=== PATIENT | female | born 1955 | race African-American/Black ===

== ENCOUNTER → 2020-08-10 11:41 | Outpatient (CLI) | payer MEDICARE, SELFPAY ==
--- NOTE | ~2020-08-10 | XR_ITS ---
EXAMINATION: XR chest 2V DATE: 08/10/2020 12:29 INDICATION: Cough. TECHNIQUE: Frontal and lateral views of the chest were obtained. COMPARISON: Chest 2 views 08/09/2014 FINDINGS: The chest demonstrates clear lungs without pneumonia, pleural effusion, or pneumothorax. Th e heart size is normal. Surgical clips in the right upper quadrant are likely from cholecystectomy. IMPRESSION: 1. No acute cardiopulmonary disease. Reviewed, dictated and finalized at location A. ACE ERECTOR
== END ==
PROVIDERS: Visit Provider Family Medicine
DX: R05 Cough (principal)
CPT/HCPCS: 71046

== ENCOUNTER 2020-10-10 07:53 | Outpatient (CLI) | payer MEDICARE, SELFPAY ==
--- NOTE | ~2020-10-10 | MM_ITS ---
EXAMINATION: MM screening juan BI w cleo HISTORY: Screening TECHNIQUE: Craniocaudal and mediolateral oblique 3-D tomosynthesis images were obtained and synthetic 2-D images were generated. CAD analysis was submitted and interpreted. COMPARISON: Comparison to multiple prior studies sequentially, with oldest reviewed study dated 06/19. BREAST PARENCHYMAL COMPOSITION: There are scattered areas of fibroglandular density. FINDINGS: There is no evidence of suspicious mass, calcification, or architectural distortion to sugg est malignancy in either breast. There has been no suspicious interval change. IMPRESSION: 1. No mammographic evidence of malignancy. 2. Recommend routine screening mammography in one year. BI-RADS Category 1: Negative Reviewed, dictated and finalized at location A. ESSOR OF PSYCHOLOGY
== END 2020-10-10 07:54 | disposition home or self-care (01) ==
LOC: ANHIMG 07:56
PROVIDERS: PCP Family Medicine; Visit Provider Student in an Organized Health Care Education/Training Program
DX: Z12.31 Encounter for screening mammogram for malignant neoplasm of breast (principal)
CPT/HCPCS: 77063; 77067

== ENCOUNTER 2021-02-27 14:17 | Emergency (ER) | payer MEDICARE, SELFPAY ==
[2021-02-27 14:44] VITALS: BP 126/70; PULSE 62; RESP 16; TEMP 36.8; O2SAT 100
--- NOTE | 2021-02-27 15:09 | ED.URI ---
HPI - URI/Sore Throat General Chief Complaint: Upper Respiratory Infection Stated Complaint: cough/congestion/chest pain Time Seen by Provider: 02/27/21 15:10 Source: patient Mode of arrival: ambulatory Limitations: no limitations History of Present Illness HPI Narrative: 65-year-old female presents to the [facility] with complaints of sinus drainage for the last 6 days. Has had intermittent cough with left ear discomfort. Has tried Mucinex, 4 doses and states is gotten a little bit better. No sick contacts. Denies fevers. No chest pain or shortness of breath. No abdominal pain, nausea, vomiting or diarrhea. Related Data Allergies Allergy/AdvReac Type Severity Reaction Status Date / Time No Known Allergies Allergy Verified 11/10/20 15:31 Review of Systems Review of Systems: All systems reviewed & are unremarkable except as noted in HPI and below Constitutional: Constitutional: Reports no additional constitutional complaints, Denies chills and Denies fever(s) Eyes: Eyes: Reports no additional eye complaints ENT: Reports as per HPI, Denies dizziness, Denies facial pain, Denies headache(s), Denies hoarseness, Denies lip swelling, Reports nasal congestion, Reports nasal discharge, Denies neck pain, Reports post nasal drip, Denies sinus pain, Denies sinus pressure, Denies sore throat and Denies throat swelling Comments: Left ear pain Cardiovascular: Cardiovascular: Reports no additional cardiovascular complaints Respiratory: Respiratory: Reports as per HPI, Denies chest congestion, Reports cough, Denies dyspnea and Denies wheezing Gastrointestinal: Gastrointestinal: Reports no additional gastrointestinal complaints, Denies abdominal pain, Denies nausea and Denies vomiting Musculoskeletal: Musculoskeletal: Reports no additional musculoskeletal complaints, Denies back pain, Denies myalgias, Denies arthralgias, Denies joint swelling and Denies muscle cramps Integumentary/Breasts: Skin/Breast: Reports system reviewed and no additional complaints, except as docu and Denies rash Neurologic: Reports system reviewed and no additional complaints, except as documented, Denies confusion, Denies vertigo, Denies dizziness, Denies syncope, Denies headache(s), Denies focal weakness, Denies numbness and Denies weakness Psychiatric: Psychiatric: Reports no additional psychiatric complaints Allergic/Immunologic: Allergic/Immunologic: Reports no additional allergic/immunologic complaints, Denies lip swelling, Denies throat swelling, Denies tongue swelling and Denies wheezing PMFSH Past Medical History Medical History (Updated 02/27/21 @ 15:18 by Pamela Levine) Acid reflux History of vaginal delivery x 2 Hypertension Renal disease Surgical History Surgical History History of cholecystectomy History of surgical removal of meniscus of knee History of total hysterectomy History of tubal ligation Family History Family History Father Family history of diabetes mellitus in first degree relative Diabetes mellitus, Onset Age: 82 Hypertension Mother Family history of lung cancer Hypertension Family history of malignant neoplasm, Onset Age: 70 Sibling Family history of lung cancer Family history of blood dyscrasia Social History Social History Smoking status: Never smoker Second hand tobacco smoke exposure: No Alcohol intake: never Substance use: never Substance use type: does not use Gender identity (if verbalized by the patient): Female Comments At the time of my signature, I reviewed and agree with the nursing past medical, surgical, social, and family history. There is no relevant family history pertinent to the patient complaint. Exam Const: General: healthy appearing, no acute distress and alert Nutritional Appearance: well nourished Or
== END 2021-02-27 15:24 | disposition home or self-care (01) ==
PROVIDERS: Emergency Provider Nurse Practitioner; PCP Family Medicine
DX: R09.82 Postnasal drip (principal); H60.502 Unspecified acute noninfective otitis externa, left ear; K21.9 Gastro-esophageal reflux disease without esophagitis; I10 Essential (primary) hypertension
CPT/HCPCS: 99213; G0463

== ENCOUNTER 2021-03-20 18:26 | Inpatient (IN) | payer MEDICARE, SELFPAY ==
--- NOTE | ~2021-03-20 | US_ITS ---
EXAMINATION: US renal BI DATE: 03/22/2021 10:59 INDICATION: Acute kidney injury TECHNIQUE: Multiple grayscale and Doppler ultrasound images of the kidneys were obtained. COMPARISON: 06/18/2014 FINDINGS: The right kidney measures 7.8 x 3.8 x 3.6 cm and contains a 2.2 cm cyst. The left kidney me asures 10.0 x 3.8 x 4.7 cm. The kidneys demonstrate normal parenchymal echogenicity. There is no hydr onephrosis. The bladder is incompletely distended but normal in appearance. IMPRESSION: 1. Chronic right renal atrophy without acute findings. Reviewed, dictated and finalized at location A.
--- NOTE | ~2021-03-20 | XR_ITS ---
EXAMINATION: XR finger 1st RT min 2V EXAM DATE: 03/22/2021 17:38 INDICATION: pain prox Rt 1st finger, decreased mobility; no recent inj. TECHNIQUE: Right 1st finger frontal, lateral and oblique projections obtained and reviewed. There is no prior study for comparison. FINDINGS: There is mild right 1st interphalangeal, metacarpophalangeal, mild to moderate carpometacar pal primary osteoarthritis. There are no bony erosions identified. There are no acute fractures or di slocations identified. There is no subcutaneous gas. The soft tissue is unremarkable. There are n o radiopaque foreign bodies. IMPRESSION: Osteoarthritis. Reviewed, dictated and finalized at location A. IMPRESSION: Osteoarthritis.
[2021-03-20 18:29] VITALS: BP 112/67; PULSE 80; RESP 18; TEMP 36.8; O2SAT 100
--- NOTE | 2021-03-20 18:50 | ED.GENADULT ---
HPI - General Adult General Chief complaint: Skin/Abscess/Foreign Body Stated complaint: skin issues Time Seen by Provider: 03/20/21 18:39 Source: patient, family and RN notes reviewed Mode of arrival: ambulatory Limitations: no limitations History of Present Illness HPI narrative: Patient is 65-year-old female who presents with abscess to the chin for the last several days was seen by primary care started on antibiotics but has had continued swelling and tenderness the lesion is now draining inside the mouth patient denies fever chills nausea vomiting immunocompromise presents in no distress notes moderate aching pain worse with touch and palpation Related Data Allergies Allergy/AdvReac Type Severity Reaction Status Date / Time No Known Allergies Allergy Verified 03/20/21 18:40 Review of Systems Review of Systems: All systems reviewed & are unremarkable except as noted in HPI and below PMFSH Past Medical History Medical History (Updated 03/20/21 @ 20:20 by Zoran Henderson PA-C) Acid reflux History of vaginal delivery x 2 Hypertension Renal disease Surgical History Surgical History History of cholecystectomy History of surgical removal of meniscus of knee History of total hysterectomy History of tubal ligation Family History Family History Father Family history of diabetes mellitus in first degree relative Diabetes mellitus, Onset Age: 82 Hypertension Mother Family history of lung cancer Hypertension Family history of malignant neoplasm, Onset Age: 70 Sibling Family history of lung cancer Family history of blood dyscrasia Social History Social History Smoking status: Never smoker Second hand tobacco smoke exposure: No Alcohol intake: never Substance use: never Substance use type: does not use Gender identity (if verbalized by the patient): Female Exam Narrative: Exam Narrative: GENERAL: Well-appearing, well-nourished, and in no acute distress. HEAD: Normocephalic, atraumatic. EYES: PERRLA and EOMI. ENT: Nares clear, no rhinorrhea or epistaxis. Mucous membranes moist. Swelling and tenderness to the lower inner lip where the abscess is tunneled through and draining NECK: Supple. No adenopathy or masses. CHEST: Clear to auscultation. No respiratory distress. No wheezes rales or rhonchi HEART: Regular rate and rhythm. No murmur heard. EXTREMITIES: Normal range of motion. No edema. SKIN: Warm, dry, no rash. Red tender swollen fluctuant lesion of the chin NEURO: No focal deficits. Alert and oriented x3. Cranial nerves II through XII grossly intact PSYCH: Normal mood and affect. Course Course Emergency Course: Patient had abscess that was I&D to also found to have acute kidney injury will be placed in hospital IV antibiotics fluids initiated admitted to the hospitalist service with plastic surgery consult Consultations Consultation #1: Discussed case with Dr. Malik and the hospitalist who is agreed to accept the patient will continue clindamycin with fluids Discussed case with Dr. Dodge the plastic surgeon who will consult on patient Date: 03/20/21 Vital Signs Vital signs: Vital Signs Temperature 98.2 F 03/20/21 18:29 Pulse Rate 80 03/20/21 18:29 Respiratory Rate 18 03/20/21 18:29 Blood Pressure 112/67 03/20/21 18:29 Pulse Oximetry 100 03/20/21 18:29 Temperature 98.2 F 03/20/21 18:29 Pulse Rate 73 03/20/21 19:52 Respiratory Rate 16 03/20/21 19:52 Blood Pressure 103/6 L 03/20/21 19:52 Pulse Oximetry 95 03/20/21 19:52 Procedures Abscess I/D face: Date of Incision: 03/20/21 Time of Incision: 20:17 Local Anesthetic: lidocaine 1% Technique: incised with #11 blade Amount of fluid expressed (mL): 10 Irrigation: Yes
[2021-03-20] MEDS: HYDROcodone/acetaminophen (*CRX) 5-325 MG TABLET 1 TAB PO (18:59)
[2021-03-20 19:01] LABS: Basophils Percent Auto 0.1 % (0.2-1.2); Hematocrit 37.9 % (37.0-47.0); Hemoglobin 12.2 g/dL (12.0-15.0); Immature Granulocyte Absolute 0.09 K/mm3 (0.00-0.031); Immature Granulocyte Percent A 0.6 % (0-0.5); Lymphocytes Percent Auto 14.1 % (18.3-44.2); Mean Corpuscular HGB Conc 32.2 g/dl (32-36); Mean Corpuscular Hemoglobin 28.7 pg (26-34); Mean Corpuscular Volume 89.2 fl (80-100); Mean Platelet Volume 10.3 fl (7.4-10.4); Monocytes Absolute Auto 1.7 K/mm3 (0.1-0.6); Monocytes Percent Auto 10.9 % (2.6-8.5); Neutrophils Absolute Auto 11.6 K/mm3 (1.3-6.7); Neutrophils Percent Auto 74.3 % (45.5-73.1); Platelet Count Result 303 k/mm3 (150-375); Red Blood Count 4.25 M/mm3 (4.2-5.4); Red Cell Distribution Width 13.8 % (11.5-14.5); White Blood Count 15.6 K/mm3 (4.5-10.0)
[2021-03-20 19:10] LABS: Anion Gap 13 mmol/L (8-16); Blood Urea Nitrogen 45 mg/dL (7-17); Calcium 9.1 mg/dL (8.4-10.2); Carbon Dioxide 22 mmol/L (22-30); Chloride 101 mmol/L (98-107); Estimated CRCL calculation 10 ml/min; Estimated Glomerular Filt Rate 12; Glucose 89 mg/dL (65-105); Potassium 5.4 mmol/L (3.4-5.0); Sodium 136 mmol/L (137-145)
[2021-03-20] MEDS: LORazepam INJ (*CRX) 2 MG/ML VIAL 1 MG IV PUSH (19:10)
[2021-03-20] MEDS: CLINDAMYCIN 900 MG/D5W 50 ML 900 MG/50 ML PIGGYBACK 50 MG IVPB (19:10)
[2021-03-20] MEDS: SODIUM CHLORIDE 0.9% IV 500 ML 999 ML IV CONT (19:50)
[2021-03-20 19:52] VITALS: BP 103/6; PULSE 73; RESP 16; O2SAT 95
--- NOTE | 2021-03-20 20:46 | PM.IMHP ---
H&P: HPI History of Present Illness Date/Time: 03/20/21 20:46 Chief Complaint: rastafari on her chin not getting better Narrative: 65-year-old female with a past medical history hypertension and chronic kidney disease who presented to the ER due to an abscess on her chin. She had a pimple to her chin that she popped on the . She thought that after she popped the pimple that her symptoms would get better instead she developed increasing swelling and erythema and warmth. She subsequently went to her primary care provider on 03/17/2021 and was prescribed Bactrim. Despite taking the antibiotic therapy as directed she continued to develop swelling in her chin to the point that her lip became swollen. She also noticed a small area of swelling inside her mouth just anterior to her teeth. She was having difficulty speaking due to the amount of swelling in her mouth and lip. She reported that the area generally her but the pain was worse with palpation. she did take some Tylenol for her symptoms with only minimal relief in her discomfort. She knows not to take any ibuprofen or other NSAIDs due to her chronic kidney disease. She denies any chills but did feel little bit feverish. She did not check her temperature. she noticed a new pustule on her chin and tried to have her sister pop the pustule but the pain was too bad to a lower sister to touch the area. She subsequently came into the ER. In the ER the patient's chin was I indeed both externally and from the mucosal membrane. The area was packed with iodoform gauze. Patient reports that the pain improved somewhat after I&D. She denies ever having prior abscesses or skin infections. She denies any trauma. She has good dentition with no evidence of dental abscess. She does have a history of chronic kidney disease. She reports that her last creatinine as outpatient approximately 3 and half months ago was around 2. Her heel edge inker machine is Dr. Lima. She is post fall with Dr. Lima in the next 4 weeks or so. She denies any changes in urinary frequency or urgency. She has not noticed any dark urine, decreased urine output or hematuria. She reports that she has been drinking plenty of fluids. Despite this the patient's creatinine has risen to 4.5. She does admit to drinking a lot of soda. Review of Systems Review of Systems: Narrative: 12 systems were reviewed with pertinent positives and negatives per HPI. Except as documented in the HPI, all other systems were reviewed and are negative. [facility] Past Medical History Medical History (Updated 03/21/21 @ 01:33 by Sultana Irvin DO) Acid reflux Allergic rhinitis Chronic kidney disease, stage III (moderate) History of vaginal delivery x 2 Hypertension IFG (impaired fasting glucose) Lupus Surgical History Surgical History History of cholecystectomy History of surgical removal of meniscus of knee History of total hysterectomy History of tubal ligation Family History Family History Father Family history of diabetes mellitus in first degree relative Diabetes mellitus, Onset Age: 82 Hypertension Mother Family history of lung cancer Hypertension Family history of malignant neoplasm, Onset Age: 70 Sibling Family history of lung cancer Family history of blood dyscrasia Social History Social History (Updated 03/21/21 @ 01:29 by Sultana Irvin DO) Social History: she lives in [place] with her of 40 years. They have 1 daughter and 1 son. She is employed as a [employer]. She is a lifelong nonsmoker. She very rarely drinks a small amount of alcohol. She denies any illicit substance use. Primary care physician: Dr. Pola Navarro Code status: Full code Surrogate decision maker: Smoking status: Never smoker Second hand tobacco smoke exposure: No Alcohol intake
[2021-03-20 21:20] LABS: CRP 18.1 mg/dL (<1.0)
[2021-03-20 21:25] VITALS: PULSE 83; RESP 12; TEMP 36.6; O2SAT 99
--- NOTE | 2021-03-20 21:45 | ADMGEN ---
This patient, Juanis Garcia, was admitted to [facility] Surg Room 302-01. Patient/family oriented to hospital policies and general routines including ID bracelet, bed and alarms, visiting hours, pain management, procedures, bathroom and other care routines, personal items, smoking policy, room service/diet, and visiting hours. Information on how to activate the Rapid Response Team has been discussed. Patient/Family are encouraged to report perceived risks to care and to ask questions if they do not understand what they are told or what they should do.
[2021-03-20 22:00] VITALS: BP 109/76; PULSE 68; RESP 18; TEMP 36.6; O2SAT 98
[2021-03-20] MEDS: LACTATED RINGERS 1,000 ML 125 ML IV CONT (22:33)
[2021-03-20] MEDS: FAMOTIDINE 20 MG/2 ML VIAL IV PUSH (22:33)
[2021-03-21] MEDS: CLINDAMYCIN 900 MG/D5W 50 ML 900 MG/50 ML PIGGYBACK 50 MG IVPB ×3 (05:36→22:47)
[2021-03-21] MEDS: LACTATED RINGERS 1,000 ML 125 ML IV CONT ×2 (05:37→18:27)
[2021-03-21 05:55] VITALS: BP 100/52; PULSE 65; RESP 18; TEMP 37.2; O2SAT 97
[2021-03-21 06:09] LABS: Basophils Percent Auto 0.1 % (0.2-1.2); Hematocrit 32.6 % (37.0-47.0); Hemoglobin 10.8 g/dL (12.0-15.0); Immature Granulocyte Absolute 0.05 K/mm3 (0.00-0.031); Immature Granulocyte Percent A 0.5 % (0-0.5); Lymphocytes Percent Auto 16.1 % (18.3-44.2); Mean Corpuscular HGB Conc 33.1 g/dl (32-36); Mean Corpuscular Hemoglobin 29.2 pg (26-34); Mean Corpuscular Volume 88.1 fl (80-100); Mean Platelet Volume 10.3 fl (7.4-10.4); Monocytes Absolute Auto 1.2 K/mm3 (0.1-0.6); Monocytes Percent Auto 11.4 % (2.6-8.5); Neutrophils Absolute Auto 7.6 K/mm3 (1.3-6.7); Neutrophils Percent Auto 71.9 % (45.5-73.1); Platelet Count Result 271 k/mm3 (150-375); Red Cell Distribution Width 13.6 % (11.5-14.5); White Blood Count 10.6 K/mm3 (4.5-10.0)
[2021-03-21 06:21] LABS: Anion Gap 10 mmol/L (8-16); Blood Urea Nitrogen 41 mg/dL (7-17); Calcium 8.5 mg/dL (8.4-10.2); Carbon Dioxide 23 mmol/L (22-30); Chloride 104 mmol/L (98-107); Estimated CRCL calculation 11 ml/min; Estimated Glomerular Filt Rate 14; Glucose 91 mg/dL (65-105); Potassium 4.9 mmol/L (3.4-5.0); Sodium 137 mmol/L (137-145)
[2021-03-21] MEDS: ENOXAPARIN 30 MG/0.3 ML SYRINGE SUB-Q (08:23)
[2021-03-21] MEDS: FLUTICASONE PROPIONATE 0.05% NA SPR 16 GM BTL (*BKC) 2 SPRAY NASAL (08:23)
[2021-03-21] MEDS: amLODIPine BESYLATE 5 MG TABLET PO (08:23)
[2021-03-21] MEDS: FAMOTIDINE 20 MG/2 ML VIAL IV PUSH ×2 (08:23→21:07)
[2021-03-21] MEDS: VENLAFAXINE HCL XR 75 MG CAP.ER.24H 150 MG PO (08:23)
[2021-03-21 08:24] VITALS: PULSE 65
[2021-03-21] MEDS: NEBIVOLOL HCL 5 MG TABLET PO (08:24)
--- NOTE | 2021-03-21 12:46 | PM.IMPN ---
Progress Note: A&P Assessment and Plan (1) Abscess of face: Code(s): L02.01 - Cutaneous abscess of face Status: Acute Assessment and Plan: SUPPORTIVE CARE DRESSING CHANGES WET-TO-DRY DAILY Patient's abscess was I&D by ER staff. Wound cultures pending. Dr. Dodge from plastic surgery has been consulted. Continue empiric antibiotic therapy with clindamycin. (2) Acute kidney injury superimposed on chronic kidney disease: Code(s): N17.9 - Acute kidney failure, unspecified; N18.9 - Chronic kidney disease, unspecified Status: Acute Assessment and Plan: Likely in part due to recent Bactrim administration. Will continue IV fluid hydration. Low-potassium diet has been ordered as the patient has mild hyperkalemia. Will hold patient's angiotensin receptor ady And hydrochlorothiazide. monitor urine output closely and repeat BMP in a.m.. Dr. Lima has been consulted. (3) Essential hypertension: Code(s): I10 - Essential (primary) hypertension Status: Acute Assessment and Plan: The patient's blood pressure is stable. Will hold the patient's Arb and hydrochlorothiazide at least for the short term given her acute renal failure. Continue home Bystolic and Norvasc. Additional Plan Patient has been admitted as observation status. Subjective Date/time seen: 03/21/21 12:46 I FEEL OKAY Exam Narrative: Exam Narrative: PHYSICAL EXAM: WEIGHT 70 kg BMI 26.5 General: No acute distress, well-developed well-nourished HEENT: mucous membranes are moist, no oral pharyngeal erythema, good dentition, pupils are equal and reactive, marked Swelling of the chin with associated swelling of the lower lip more to the left side than the right, small ulceration /opening the mucosal membrane at the base the gumline, associated erythema and warmth to touch Respiratory: clear to auscultation bilaterally, no increased work of breathing Cardiovascular: regular rate, regular rhythm, no murmurs Gastrointestinal: soft, nontender, positive bowel sounds Skin: erythema and warmth to the chin as discussed above Musculoskeletal: no clubbing, cyanosis or edema Neurological: alert and oriented, speech is clear, no facial asymmetry, patient intermittently falling asleep but she receive some sedating medications in the ER, no localizing neurologic deficits noted on limited exam Psychiatric: appropriate mood and affect, pleasant and cooperative : defered Hematologic/lymphatic: submandibular lymphadenopathy left greater than right, no petechiae, no bruising Objective Data Vital Signs Vital Signs: Vital Signs - 24 hr 03/20/21 18:29 03/20/21 19:52 03/20/21 21:25 Temperature 98.2 F 97.9 F Pulse Rate 80 73 83 Respiratory Rate 18 16 12 Blood Pressure 112/67 103/6 L Pulse Oximetry 100 95 99 03/20/21 22:00 03/21/21 05:55 03/21/21 08:24 Temperature 97.9 F 99.0 F Pulse Rate 68 65 65 Respiratory Rate 18 18 Blood Pressure 109/76 100/52 L Pulse Oximetry 98 97 Intake/Output Intake/Output: Intake & Output 03/18/21 03/19/21 03/20/21 03/21/21 23:59 23:59 23:59 23:59 Intake Total 650 2040 Output Total 900 Balance 650 1140 Meds/Results Medications: Active Medications Generic Name Dose Route Start Last Admin Trade Name Freq PRN Reason Stop Dose Admin Acetaminophen 500 mg 03/20/21 20:54 Acetaminophen 500 Mg Tablet PO Q6H PRN Mild Pain (1-3) or Fever Hydrocodone Bitart/Acetaminophen 1 tab 03/20/21 20:20 Hydrocodone/Acetaminophen (*Crx) 5-325 Mg Tablet PO Q4H PRN Pain Rated 4-6 Amlodipine Besylate 5 mg 03/21/21 09:00 03/21/21 08:23 Amlodipine Besylate 5 Mg Tablet PO 5 mg QAM ZOFIA Administration Enoxaparin Sodium 30 mg 03/21/21 09:00 03/21/21 08:23 Enoxaparin 30 Mg/0.3 Ml Syringe SUB-Q 30 mg DAILY ZOFIA Administration Famotidine 20 mg 03/20/21 21:00 03/21/21 08:23 F
--- NOTE | 2021-03-21 12:55 | PM.CNNEP ---
Assessment and Plan Assessment and plan (1) Acute kidney injury: Code(s): N17.9 - Acute kidney failure, unspecified Status: Acute Assessment and Plan: presumably due to acute infection (#3) however, relative hypotension along with ARB + HCTZ likely contributed outpatient use of bactrim likely also responsible as well hold BP meds for now and allow BP to rise a bit for completeness, will check urine lytes and eosinophils as well as renal ultrasound follow repeat labs and UOP (2) CKD (chronic kidney disease) stage 4, GFR 15-29 ml/min: Code(s): N18.4 - Chronic kidney disease, stage 4 (severe) Status: Chronic Assessment and Plan: baseline creatinine runs ~ 1.7 - 2.1mg/dl due to hypertension based on outpatient evaluation (3) Abscess of face: Code(s): L02.01 - Cutaneous abscess of face Status: Acute Assessment and Plan: s/p I & D in the ER on antibiotics follow cultures Plastic Surgery consulted (4) Hypertension: Code(s): I10 - Essential (primary) hypertension Status: Acute Assessment and Plan: on the lower side of normal for her follow trend of hemodynamics Will continue to follow. History of Present Illness Reason for Consult Consult date: 03/21/21 Reason for consult: acute renal failure (on chronic kidney disease) Chief Complaint Chief complaint: Facial abscess, acute kidney injury History of Present Illness Narrative: The patient is a 65-year-old female with a past medical history as outlined below who presented to [facility] ER due to an abscess on her chin. Initially, it started out as a pimple to her chin that she ruptured on its own about a week ago. She assumed her symptoms would improve after that occurred. Unfortunately, she developed increasing swelling and erythema along increased warmth to touch. She subsequently went to her primary care provider a few days later and stared on oral Bacrim. However, despite taking the anibiotic, her chin continued to swell to the point that her lower lip became swollen. This worsened to the point that she noted an area of swelling inside her mouth and her speech became difficult. She presented to the ER for further evaluation given these ongoing symptoms. Workup and evaluation in the emergency room demonstrated the patient to be hemodynamically stable although her blood pressure was little bit lower than what it normally runs in general. Routine blood test demonstrated a mildly elevated white blood cell count but her chemistry showed a marked decline in her kidney function with a significantly elevated BUN and creatinine above her baseline. The ER physician performed a bedside incision and drainage which did seem to make the patient feel better after this procedure was done. She was started on broad-spectrum IV antibiotic therapy after appropriate cultures were obtained and she was subsequently admitted to the hospital given the issue of her chin abscess as well as her acute renal failure/ acute kidney injury. Plastic surgery was also consult with regard to the chin abscess. Renal consultation was requested due to her acute kidney injury/acute renal failure on top of her baseline kidney disease. The patient is quite familiar to me as I have taking care of her for last few years with regard to her chronic kidney disease management. Her baseline creatinine normally runs around 1.7-2.1 mg/dL in the last few years thought to be secondary to hypertension given her negative outpatient testing /evaluation. She reports no decrease in urine output as states that she does drink plenty of water but does admit that with the chin abscess her oral intake has been somewhat reduced in general. Currently, at the time my visit, she appears to be in no acute distress. Review of Systems Review of Systems: Narrative: As per HPI. [facility] Past Medical History Medical History (Update
[2021-03-21 14:00] VITALS: BP 103/45; PULSE 70; RESP 16; TEMP 36.6; O2SAT 100
--- NOTE | 2021-03-21 14:47 | WPDCN ---
Assessment and Plan Assessment and plan (1) Abscess of face: Code(s): L02.01 - Cutaneous abscess of face Status: Acute Assessment and Plan: Patient's abscess was I and eat by ER staff. Wound cultures pending. Dr. Dodge from plastic surgery has been consulted. Continue empiric antibiotic therapy with clindamycin. (2) Acute kidney injury superimposed on chronic kidney disease: Code(s): N17.9 - Acute kidney failure, unspecified; N18.9 - Chronic kidney disease, unspecified Status: Acute Assessment and Plan: Likely in part due to recent Bactrim administration. Will continue IV fluid hydration. Low-potassium diet has been ordered as the patient has mild hyperkalemia. Will hold patient's angiotensin receptor ady And hydrochlorothiazide. monitor urine output closely and repeat BMP in a.m.. Dr. Lima has been consulted. (3) Essential hypertension: Code(s): I10 - Essential (primary) hypertension Status: Acute Assessment and Plan: The patient's blood pressure is stable. Will hold the patient's Arb and hydrochlorothiazide at least for the short term given her acute renal failure. Continue home Bystolic and Norvasc. Additional Plan I will see patient tomorrow in the morning and likely pull the wick She will probably be in good enough condition to be discharged home if Nephrology agrees. Patient has been admitted as observation status. HPI Data of Consult Date/Time: 03/21/21 14:47 Requesting Physician: Sultana Irvin DO Primary Care Provider: Pola Navarro MD Consult Narrative Narrative: Juanis Garcia is a 65 year old female with 4-5 day history of increasing swelling the the left chin and lower lip. She has been seen by her primary and was started on Bactrim Swelling with pain continued and no drainage occurred despite application of hot packs. Yesterday she was I&D'd via cutaneous and intraoral routes in the ER and a wick was placed. She has been started on IV Clindamycin. WBC has dropped from 15.6 to 10.6. No drainage was expressible today. Wick remains. Culture is pending. Pt says her teeth are in good condition. She has had an aberrant hair on her chin at this site. No x-rays have been done and probably do not need to be. [facility] Past Medical History Medical History (Updated 03/21/21 @ 06:12 by Sultana Irvin DO) Acid reflux Allergic rhinitis Chronic kidney disease, stage III (moderate) COVID-19 vaccine series completed (~07/2020) Gout History of vaginal delivery x 2 Hypertension IFG (impaired fasting glucose) Lupus Surgical History Surgical History (Updated 03/21/21 @ 06:12 by Sultana Irvin DO) History of bunionectomy of both great toes History of cholecystectomy History of repair of right rotator cuff History of surgical removal of meniscus of knee History of total hysterectomy (~1995) due to fibroids and dysfunctional uterine bleeding History of tubal ligation Family History Family History (Updated 03/21/21 @ 06:14 by Sultana Irvin DO) Father , at age 82 Diabetes mellitus, Onset Age: 82 Hypertension Dementia Mother , at age 70 Hypertension Lung cancer Sibling Family history of blood dyscrasia Lung cancer her youngest sister of lung cancer. Social History Social History (Updated 03/21/21 @ 01:29 by Sultana Irvin DO) Social History: she lives in [place] with her of 40 years. They have 1 daughter and 1 son. 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 She is a lifelong nonsmoker. She very rarely drinks a small amount of alcohol. She denies any illicit substance use. Primary care physician: Dr. Pola Navarro Code status: Full code Surrogate decision maker: Smoking status: Never smoker Second hand tobacco smoke exposure: No Alcohol intake: former Substance use: never
[2021-03-21] MEDS: HYDROcodone/acetaminophen (*CRX) 5-325 MG TABLET 1 TAB PO (21:47)
[2021-03-21 23:17] LABS: Add Urine Microscopic? NO; Appearance Urine Clear (Clear); Bilirubin Urine Negative (Negative); Blood Urine Negative (Negative); Color Urine Straw (Yellow); Glucose Urine UA Negative (Negative); Ketones Urine Negative (Negative); Leukocyte Esterase Ur Negative LEU/UL (Negative); Nitrate Urine Negative (Negative); Protein Urine Negative (Negative); Specific Grav Ur 1.008 (1.001-1.035); Urobilinogen Urine Negative mg/dL (<2.0)
[2021-03-21 23:32] LABS: Total Protein Urine Random 15 mg/dL; Ur Ttl Prot Creatinine Ratio 0.26 mg/mg (0-0.20)
[2021-03-21 23:41] LABS: Eosinophil Urine None Seen % (None Seen)
[2021-03-21 23:46] LABS: Sodium Urine Random 64 meq/L
[2021-03-22] MEDS: LACTATED RINGERS 1,000 ML 125 ML IV CONT ×2 (03:38→17:13)
[2021-03-22] MEDS: CLINDAMYCIN 900 MG/D5W 50 ML 900 MG/50 ML PIGGYBACK 50 MG IVPB ×3 (05:38→21:29)
[2021-03-22 06:00] VITALS: BP 101/49; PULSE 76; RESP 20; TEMP 36.4; O2SAT 92
[2021-03-22 06:24] LABS: Albumin Level 3.7 g/dL (3.5-5.1); Anion Gap 8 mmol/L (8-16); Blood Urea Nitrogen 31 mg/dL (7-17); Calcium 8.8 mg/dL (8.4-10.2); Carbon Dioxide 24 mmol/L (22-30); Chloride 106 mmol/L (98-107); Estimated CRCL calculation 15 ml/min; Estimated Glomerular Filt Rate 20; Glucose 84 mg/dL (65-105); Phosphorus 3.8 mg/dL (2.5-4.5); Potassium 4.7 mmol/L (3.4-5.0); Sodium 138 mmol/L (137-145)
[2021-03-22] MEDS: FLUTICASONE PROPIONATE 0.05% NA SPR 16 GM BTL (*BKC) 2 SPRAY NASAL (08:38)
[2021-03-22 08:39] VITALS: PULSE 68
[2021-03-22] MEDS: NEBIVOLOL HCL 5 MG TABLET PO (08:39)
[2021-03-22] MEDS: FAMOTIDINE 20 MG/2 ML VIAL IV PUSH ×2 (08:39→21:30)
[2021-03-22] MEDS: ENOXAPARIN 30 MG/0.3 ML SYRINGE SUB-Q (08:39)
[2021-03-22] MEDS: VENLAFAXINE HCL XR 75 MG CAP.ER.24H 150 MG PO (08:39)
[2021-03-22] MEDS: ACETAMINOPHEN 500 MG TABLET PO (08:44)
--- NOTE | 2021-03-22 10:47 | PM.IMPN ---
Progress Note: A&P Assessment and Plan (1) Acute kidney injury: Code(s): N17.9 - Acute kidney failure, unspecified Status: Acute Assessment and Plan: continue to monitor follow Nephrology recommendations presumably due to acute infection (#3) however, relative hypotension along with ARB + HCTZ likely contributed outpatient use of bactrim likely also responsible as well hold BP meds for now and allow BP to rise a bit for completeness, will check urine lytes and eosinophils as well as renal ultrasound follow repeat labs (2) CKD (chronic kidney disease) stage 4, GFR 15-29 ml/min: Code(s): N18.4 - Chronic kidney disease, stage 4 (severe) Status: Chronic Assessment and Plan: baseline creatinine runs ~ 1.7 - 2.1mg/dl due to hypertension based on outpatient evaluation (3) Abscess of face: Code(s): L02.01 - Cutaneous abscess of face Status: Acute Assessment and Plan: s/p I & D in the ER on antibiotics follow cultures Plastic Surgery consulted (4) Hypertension: Code(s): I10 - Essential (primary) hypertension Status: Acute Assessment and Plan: on the lower side of normal for her follow trend of hemodynamics Will continue to follow. Subjective Date/time seen: 03/22/21 10:47 Exam Const: General: comfortable, no acute distress, well developed, alert and awake Nutritional Appearance: average body habitus Orientation/consciousness: patient oriented x3 HENMT: Head: normal to inspection, normocephalic and atraumatic Ears: hearing grossly normal bilaterally General nose exam: Normal external nose present Face and sinus: other ( left chin abscess status post incision and drainage packing in) Mouth: Yes Normal oral and palatal mucosa present Eyes: General: appearance normal, both eyes and all related structures Pupils: Equal, round and reactive pupils present EOM: EOMs intact bilaterally Neck: Neck: full ROM, no lymphadenopathy and no JVD Thyroid: thyroid normal Lymphatic: no lymphadenopathy noted Resp: Effort & Inspection: normal respiratory effort and able to speak in complete sentences Auscultation: clear to auscultation bilaterally Cardio: Jugular venous distension: no JVD Rate: regular rate Rhythm: regular rhythm Heart sounds: S1 normal heart sound present and S2 normal heart sound present GI: GI Palp: Yes Soft to palpation and Yes No hepatosplenomegaly present : General: Yes deferred Skin: Rashes: no rashes Wounds: no wounds Neuro: General: patient oriented x3 and CN's II-XI intact bilaterally Cranial nerves: Yes CN's II-XII intact bilaterally and Yes Equal, round and reactive pupils present Cognition (Neuro): normal cognition Speech: normal speech Gait exam (Neuro): Normal gait present Motor exam (neuro): 5/5 motor strength present throughout Extrem: General: normal to inspection, full ROM, no joint enlargement and no pedal edema Objective Data Vital Signs Vital Signs: Vital Signs - 24 hr 03/21/21 14:00 03/22/21 06:00 03/22/21 08:39 Temperature 97.9 F 97.6 F Pulse Rate 70 76 68 Respiratory Rate 16 20 Blood Pressure 103/45 L 101/49 L Pulse Oximetry 100 92 Intake/Output Intake/Output: Intake & Output 03/19/21 03/20/21 03/21/21 03/22/21 23:59 23:59 23:59 23:59 Intake Total 650 4100 1490 Output Total 1600 900 Balance 650 2500 590 Meds/Results Medications: Active Medications Generic Name Dose Route Start Last Admin Trade Name Freq PRN Reason Stop Dose Admin Acetaminophen 500 mg 03/20/21 20:54 03/22/21 08:44 Acetaminophen 500 Mg Tablet PO 500 mg Q6H PRN Administration Mild Pain (1-3) or Fever Hydrocodone Bitart/Acetaminophen 1 tab 03/20/21 20:20 03/21/21 21:47 Hydrocodone/Acetaminophen (*Crx) 5-325 Mg Tablet PO 1 tab Q4H PRN Administration Pain Rated 4-6 Amlodipine Besylate 5 mg 03/21/21 09:00 03/21/21 08:23 Amlodipine Besylate 5 M
--- NOTE | 2021-03-22 11:16 | PM.PNNEP ---
Progress Note: A&P Assessment and Plan (1) Acute kidney injury: Code(s): N17.9 - Acute kidney failure, unspecified Status: Acute Assessment and Plan: presumably due to acute infection , diuretics, Bactrim. She is getting antibiotics now. Blood pressure looks better. She is off the Bactrim. Urine electrolytes non pre renal. Renal ultrasound is pending follow repeat labs and UOP (2) CKD (chronic kidney disease) stage 4, GFR 15-29 ml/min: Code(s): N18.4 - Chronic kidney disease, stage 4 (severe) Status: Chronic Assessment and Plan: baseline creatinine runs ~ 1.7 - 2.1mg/dl creatinine fell from 4-2.5. (3) Abscess of face: Code(s): L02.01 - Cutaneous abscess of face Status: Acute Assessment and Plan: s/p I & D in the ER on antibiotics follow cultures Plastic Surgery consulted (4) Hypertension: Code(s): I10 - Essential (primary) hypertension Status: Acute Assessment and Plan: on the lower side of normal for her follow trend of hemodynamics Subjective Date/time seen: 03/22/21 11:16 Interval history: Minnie is feeling better today. No chest pain or shortness of breath. Making plenty of urine. Eating okay. Review of Systems Cardiovascular: Cardiovascular: Reports no additional cardiovascular complaints Respiratory: Respiratory: Reports no additional respiratory complaints Gastrointestinal: Gastrointestinal: Reports no additional gastrointestinal complaints Genitourinary: Genitourinary: Reports no additional female genitourinary complaints Exam Narrative: Exam Narrative: WDWN in NAD skin no rash head ncat lungs clear cor reg no rub abd BS+ nontender and soft ext no edema. Objective Data Vital Signs Vital Signs: Vital Signs - 24 hr 03/21/21 14:00 03/22/21 06:00 03/22/21 08:39 Temperature 36.6 C 36.4 C Pulse Rate 70 76 68 Respiratory Rate 16 20 Blood Pressure 103/45 L 101/49 L Pulse Oximetry 100 92 Intake/Output Intake/Output: Intake & Output 03/19/21 03/20/21 03/21/21 03/22/21 23:59 23:59 23:59 23:59 Intake Total 650 4100 1490 Output Total 1600 900 Balance 650 2500 590 Meds/Results Medications: Active Medications Generic Name Dose Route Start Last Admin Trade Name Freq PRN Reason Stop Dose Admin Acetaminophen 500 mg 03/20/21 20:54 03/22/21 08:44 Acetaminophen 500 Mg Tablet PO 500 mg Q6H PRN Administration Mild Pain (1-3) or Fever Hydrocodone Bitart/Acetaminophen 1 tab 03/20/21 20:20 03/21/21 21:47 Hydrocodone/Acetaminophen (*Crx) 5-325 Mg Tablet PO 1 tab Q4H PRN Administration Pain Rated 4-6 Amlodipine Besylate 5 mg 03/21/21 09:00 03/21/21 08:23 Amlodipine Besylate 5 Mg Tablet PO 5 mg QAM ZOFIA Administration Enoxaparin Sodium 30 mg 03/21/21 09:00 03/22/21 08:39 Enoxaparin 30 Mg/0.3 Ml Syringe SUB-Q 30 mg DAILY ZOFIA Administration Famotidine 20 mg 03/20/21 21:00 03/22/21 08:39 Famotidine 20 Mg/2 Ml Vial IV PUSH 20 mg Q12HR ZOFIA Administration Fluticasone Propionate 2 spray 03/21/21 09:00 03/22/21 08:38 Fluticasone Propionate 0.05% Na Spr 16 Gm Btl (*Bkc) NASAL 2 spray DAILY ZOFIA Administration Lactated Ringer's 1,000 mls @ 125 mls/hr 03/20/21 20:20 03/22/21 03:38 Lr - Lactated Ringers Iv IV CONT 125 mls/hr .Q8H ZOFIA Administration Clindamycin Phosphate 900 mg in 50 mls @ 50 mls/hr 03/21/21 06:00 03/22/21 07:45 Cleocin 900 Mg/D5w 50 Ml IVPB Infused Q8H ZOFIA Infusion Nebivolol 5 mg 03/21/21 09:00 03/22/21 08:39 Nebivolol Hcl 5 Mg Tablet PO 5 mg DAILY ZOFIA Administration Venlafaxine HCl 150 mg 03/21/21 08:00 03/22/21 08:39 Venlafaxine Hcl Xr 75 Mg Cap.Er.24h PO 150 mg DAILY@0800 ZOFIA Administration Labs Labs: Laboratory Results - last 24 hr 03/21/21 03/21/21 03/21/21 21:58 21:58 21:58 Sodium Potassium Chloride
[2021-03-22 14:00] VITALS: BP 105/43; PULSE 58; RESP 18; TEMP 36.8; O2SAT 98
[2021-03-22 22:00] VITALS: BP 124/75; PULSE 56; RESP 18; TEMP 36.4; O2SAT 100
[2021-03-23] MEDS: LACTATED RINGERS 1,000 ML 125 ML IV CONT ×3 (02:36→18:16)
[2021-03-23] MEDS: CLINDAMYCIN 900 MG/D5W 50 ML 900 MG/50 ML PIGGYBACK 50 MG IVPB (05:29)
[2021-03-23 05:46] LABS: Albumin Level 3.6 g/dL (3.5-5.1); Anion Gap 5 mmol/L (8-16); Blood Urea Nitrogen 25 mg/dL (7-17); Calcium 8.9 mg/dL (8.4-10.2); Carbon Dioxide 25 mmol/L (22-30); Chloride 108 mmol/L (98-107); Estimated CRCL calculation 20 ml/min; Estimated Glomerular Filt Rate 27; Glucose 82 mg/dL (65-105); Phosphorus 3.6 mg/dL (2.5-4.5); Sodium 138 mmol/L (137-145)
[2021-03-23 06:00] VITALS: BP 114/55; PULSE 59; RESP 18; TEMP 36.4; O2SAT 98
--- NOTE | 2021-03-23 08:13 | PM.PNNEP ---
Progress Note: A&P Assessment and Plan (1) Acute kidney injury: Code(s): N17.9 - Acute kidney failure, unspecified Status: Acute Assessment and Plan: presumably due to acute infection , diuretics, Bactrim. She is getting antibiotics now. Blood pressure looks better. She is off the Bactrim. intake and output very positive. Will discontinue IV fluids. (2) CKD (chronic kidney disease) stage 4, GFR 15-29 ml/min: Code(s): N18.4 - Chronic kidney disease, stage 4 (severe) Status: Chronic Assessment and Plan: baseline creatinine runs ~ 1.7 - 2.1mg/dl creatinine fell from 4 to 2.2. This is about her baseline. Discharge okay from the kidney standpoint at any time (3) Abscess of face: Code(s): L02.01 - Cutaneous abscess of face Status: Acute Assessment and Plan: s/p I & D in the ER on antibiotics follow cultures Plastic Surgery consulted (4) Hypertension: Code(s): I10 - Essential (primary) hypertension Status: Acute Assessment and Plan: on the lower side of normal for her follow trend of hemodynamics Subjective Date/time seen: 03/23/21 08:13 Interval history: No complaints. Eating and drinking well. No chest pain or shortness of breath. Making plenty of urine. Exam Narrative: Exam Narrative: WDWN in NAD skin no rash Neck with bandage head ncat lungs clear cor reg no rub abd BS+ nontender and soft ext no edema. Objective Data Vital Signs Vital Signs: Vital Signs - 24 hr 03/22/21 08:39 03/22/21 14:00 03/22/21 22:00 Temperature 36.8 C 36.4 C L Pulse Rate 68 58 L 56 L Respiratory Rate 18 18 Blood Pressure 105/43 L 124/75 Pulse Oximetry 98 100 03/23/21 06:00 Temperature 36.4 C Pulse Rate 59 L Respiratory Rate 18 Blood Pressure 114/55 L Pulse Oximetry 98 Intake/Output Intake/Output: Intake & Output 03/20/21 03/21/21 03/22/21 03/23/21 23:59 23:59 23:59 23:59 Intake Total 650 4100 4940 1590 Output Total 1600 900 Balance 650 2500 4040 1590 Meds/Results Medications: Active Medications Generic Name Dose Route Start Last Admin Trade Name Freq PRN Reason Stop Dose Admin Acetaminophen 500 mg 03/20/21 20:54 03/22/21 08:44 Acetaminophen 500 Mg Tablet PO 500 mg Q6H PRN Administration Mild Pain (1-3) or Fever Hydrocodone Bitart/Acetaminophen 1 tab 03/20/21 20:20 03/21/21 21:47 Hydrocodone/Acetaminophen (*Crx) 5-325 Mg Tablet PO 1 tab Q4H PRN Administration Pain Rated 4-6 Amlodipine Besylate 5 mg 03/21/21 09:00 03/22/21 17:17 Amlodipine Besylate 5 Mg Tablet PO Not Given QAM [facility] Enoxaparin Sodium 30 mg 03/21/21 09:00 03/22/21 08:39 Enoxaparin 30 Mg/0.3 Ml Syringe SUB-Q 30 mg DAILY ZOFIA Administration Famotidine 20 mg 03/20/21 21:00 03/22/21 21:30 Famotidine 20 Mg/2 Ml Vial IV PUSH 20 mg Q12HR ZOFIA Administration Fluticasone Propionate 2 spray 03/21/21 09:00 03/22/21 08:38 Fluticasone Propionate 0.05% Na Spr 16 Gm Btl (*Bkc) NASAL 2 spray DAILY ZOFIA Administration Lactated Ringer's 1,000 mls @ 125 mls/hr 03/20/21 20:20 03/23/21 02:36 Lr - Lactated Ringers Iv IV CONT 125 mls/hr .Q8H ZOFIA Administration Vancomycin HCl 1,000 mg in 250 mls @ 250 mls/hr 03/23/21 09:00 Vancomycin 1,000 Mg/D5w 250 Ml IVPB Q36H ZOFIA Nebivolol 5 mg 03/21/21 09:00 03/22/21 08:39 Nebivolol Hcl 5 Mg Tablet PO 5 mg DAILY ZOFIA Administration Venlafaxine HCl 150 mg 03/21/21 08:00 03/22/21 08:39 Venlafaxine Hcl Xr 75 Mg Cap.Er.24h PO 150 mg DAILY@0800 ZOFIA Administration Radiology Results: ITS Impressions Renal Ultrasound 03/22/21 14:22 IMPRESSION: 1. Chronic right renal atrophy without acute findings. Finger X-Ray 03/22/21 17:41 IMPRESSION: Osteoarthritis. Labs Labs: Laboratory Results - last 24 hr 03/23/21 05:05 Sodium 138 Potassium
[2021-03-23 08:18] VITALS: PULSE 60
[2021-03-23] MEDS: FLUTICASONE PROPIONATE 0.05% NA SPR 16 GM BTL (*BKC) 2 SPRAY NASAL (08:18)
[2021-03-23] MEDS: NEBIVOLOL HCL 5 MG TABLET PO (08:18)
[2021-03-23] MEDS: FAMOTIDINE 20 MG/2 ML VIAL IV PUSH ×2 (08:19→20:32)
[2021-03-23] MEDS: VENLAFAXINE HCL XR 75 MG CAP.ER.24H 150 MG PO (08:19)
[2021-03-23] MEDS: ENOXAPARIN 30 MG/0.3 ML SYRINGE SUB-Q (09:00)
[2021-03-23 14:00] VITALS: BP 119/73; PULSE 58; RESP 16; TEMP 35.9; O2SAT 99
--- NOTE | 2021-03-23 14:06 | PM.IMPN ---
Progress Note: A&P Assessment and Plan (1) Acute kidney injury: Code(s): N17.9 - Acute kidney failure, unspecified Status: Acute Assessment and Plan: IMPROVED APPRECIATE NEPHROLOGY NOTE continue to monitor presumably due to acute infection (#3) however, relative hypotension along with ARB + HCTZ likely contributed outpatient use of bactrim likely also responsible as well hold BP meds for now and allow BP to rise a bit for completeness, will check urine lytes and eosinophils as well as renal ultrasound follow repeat labs (2) CKD (chronic kidney disease) stage 4, GFR 15-29 ml/min: Code(s): N18.4 - Chronic kidney disease, stage 4 (severe) Status: Chronic Assessment and Plan: baseline creatinine runs ~ 1.7 - 2.1mg/dl due to hypertension based on outpatient evaluation (3) Abscess of face: Code(s): L02.01 - Cutaneous abscess of face Status: Acute Assessment and Plan: ID CONSULTED FOR ANTIBIOTIC SHOWS GOING HOME s/p I & D in the ER on antibiotics follow cultures Plastic Surgery consulted (4) Hypertension: Code(s): I10 - Essential (primary) hypertension Status: Acute Assessment and Plan: CONTINUE TO MONITOR on the lower side of normal for her follow trend of hemodynamics Will continue to follow. Subjective Date/time seen: 03/23/21 14:06 I FEEL GOOD Interval history: No complaints. Eating and drinking well. No chest pain or shortness of breath. Making plenty of urine. Review of Systems Review of Systems: All systems reviewed & are unremarkable except as noted in HPI and below Cardiovascular: Cardiovascular: Reports no additional cardiovascular complaints Respiratory: Respiratory: Reports no additional respiratory complaints Gastrointestinal: Gastrointestinal: Reports no additional gastrointestinal complaints Genitourinary: Genitourinary: Reports no additional female genitourinary complaints Exam Const: General: comfortable, no acute distress, well developed, alert and awake Nutritional Appearance: average body habitus Orientation/consciousness: patient oriented x3 HENMT: Head: normal to inspection, normocephalic and atraumatic Ears: hearing grossly normal bilaterally General nose exam: Normal external nose present Face and sinus: other ( left chin abscess status post incision and drainage packing in) Mouth: Yes Normal oral and palatal mucosa present Eyes: General: appearance normal, both eyes and all related structures Pupils: Equal, round and reactive pupils present EOM: EOMs intact bilaterally Neck: Neck: full ROM, no lymphadenopathy and no JVD Thyroid: thyroid normal Lymphatic: no lymphadenopathy noted Resp: Effort & Inspection: normal respiratory effort and able to speak in complete sentences Auscultation: clear to auscultation bilaterally Cardio: Jugular venous distension: no JVD Rate: regular rate Rhythm: regular rhythm Heart sounds: S1 normal heart sound present and S2 normal heart sound present : General: Yes deferred Skin: Rashes: no rashes Wounds: no wounds Neuro: General: patient oriented x3 and CN's II-XI intact bilaterally Cranial nerves: Yes CN's II-XII intact bilaterally and Yes Equal, round and reactive pupils present Cognition (Neuro): normal cognition Speech: normal speech Gait exam (Neuro): Normal gait present Motor exam (neuro): 5/5 motor strength present throughout Extrem: General: normal to inspection, full ROM, no joint enlargement and no pedal edema Objective Data Vital Signs Vital Signs: Vital Signs - 24 hr 03/22/21 22:00 03/23/21 06:00 03/23/21 08:18 Temperature 97.5 F L 97.6 F Pulse Rate 56 L 59 L 60 Respiratory Rate 18 18 Blood Pressure 124/75 114/55 L Pulse Oximetry 100 98 Intake/Output Intake/Output: Intake & Output 03/20/21 03/21/21 03/22/21 03/23/21 23:59 23:59 23:59 23:59 Intake Total 650 9478 7311 4854
[2021-03-23 15:01] VITALS: O2SAT 98
--- NOTE | 2021-03-23 17:16 | WPDCN ---
HPI Data of Consult Date/Time: 03/23/21 17:16 Requesting Physician: Sultana Irvin DO Primary Care Provider: Pola Navarro MD Consult Narrative Narrative: Juanis Garcia is a 65 year old female [facility] Past Medical History Medical History (Updated 03/21/21 @ 16:05 by Teresa Lima MD) Acid reflux Allergic rhinitis Chronic kidney disease, stage III (moderate) COVID-19 vaccine series completed (~07/2020) Gout History of vaginal delivery x 2 Hypertension IFG (impaired fasting glucose) Lupus Surgical History Surgical History (Updated 03/21/21 @ 06:12 by Sultana Irvin DO) History of bunionectomy of both great toes History of cholecystectomy History of repair of right rotator cuff History of surgical removal of meniscus of knee History of total hysterectomy (~1995) due to fibroids and dysfunctional uterine bleeding History of tubal ligation Family History Family History (Updated 03/21/21 @ 06:14 by Sultana Irvin DO) Father , at age 82 Diabetes mellitus, Onset Age: 82 Hypertension Dementia Mother , at age 70 Hypertension Lung cancer Sibling Family history of blood dyscrasia Lung cancer her youngest sister of lung cancer. Social History Social History (Updated 03/21/21 @ 01:29 by Sultana Irvin DO) Social History: she lives in [place] with her of 40 years. They have 1 daughter and 1 son. 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 She is a lifelong nonsmoker. She very rarely drinks a small amount of alcohol. She denies any illicit substance use. Primary care physician: Dr. Pola Navarro Code status: Full code Surrogate decision maker: Smoking status: Never smoker Second hand tobacco smoke exposure: No Alcohol intake: former Substance use: never Substance use type: does not use Gender identity (if verbalized by the patient): Female Spiritual care concerns: No Meds Home Medications and Allergies Home Medications Medication Instructions Recorded Confirmed Type venlafaxine 150 mg 150 mg PO DAILY #90 cap 06/09/20 03/20/21 Rx capsule,extended release 24 hr nebivolol 5 mg tablet 5 mg PO DAILY #90 tablet 12/21/20 03/20/21 Rx olmesartan 20 mg-amlodipine 5 1 tablet PO DAILY #90 tablet 12/21/20 03/20/21 Rx mg-hydrochlorothiazide 12.5 mg tablet fluticasone propionate [Flonase 2 spray INTRANASAL DAILY #16 g 02/27/21 03/20/21 Rx Allergy Relief] sulfamethoxazole 800 1 tablet PO Q12H 10 Days #20 tablet 03/17/21 03/20/21 Rx mg-trimethoprim 160 mg tablet Allergies Allergy/AdvReac Type Severity Reaction Status Date / Time No Known Allergies Allergy Verified 03/20/21 18:40 Vital Signs Vital Signs - 24 hr 03/22/21 22:00 03/23/21 06:00 03/23/21 08:18 Temperature 97.5 F L 97.6 F Pulse Rate 56 L 59 L 60 Respiratory Rate 18 18 Blood Pressure 124/75 114/55 L Pulse Oximetry 100 98 03/23/21 14:00 03/23/21 15:01 Temperature 96.6 F L Pulse Rate 58 L Respiratory Rate 16 Blood Pressure 119/73 Pulse Oximetry 99 98 Results Labs CBC & Chem 7: 03/21/21 05:20 03/23/21 05:05 Labs: BMP 03/23/21 05:05 Sodium 138 Potassium 5.0 Chloride 108 H Carbon Dioxide 25 BUN 25 H Creatinine 2.20 H Glucose 82 Calcium 8.9 Liver Function 03/23/21 Range/Units 05:05 Albumin 3.6 (3.5-5.1) g/dL
--- NOTE | 2021-03-23 17:17 | P.PN_ITS ---
Progress Note: A&P Assessment and Plan (1) Acute kidney injury: Code(s): N17.9 - Acute kidney failure, unspecified Status: Acute Assessment and Plan: * IMPROVED * APPRECIATE NEPHROLOGY NOTE * continue to monitor * presumably due to acute infection (#3) * however, relative hypotension along with ARB + HCTZ likely contributed * outpatient use of bactrim likely also responsible as well * hold BP meds for now and allow BP to rise a bit * for completeness, will check urine lytes and eosinophils as well as renal ultrasound * follow repeat labs (2) CKD (chronic kidney disease) stage 4, GFR 15-29 ml/min: Code(s): N18.4 - Chronic kidney disease, stage 4 (severe) Status: Chronic Assessment and Plan: * baseline creatinine runs ~ 1.7 - 2.1mg/dl * due to hypertension based on outpatient evaluation (3) Abscess of face: Code(s): L02.01 - Cutaneous abscess of face Status: Acute Assessment and Plan: * ID CONSULTED FOR ANTIBIOTIC SHOWS GOING HOME * s/p I & D in the ER * on antibiotics * follow cultures * Plastic Surgery consulted (4) Hypertension: Code(s): I10 - Essential (primary) hypertension Status: Acute Assessment and Plan: * CONTINUE TO MONITOR * on the lower side of normal for her * follow trend of hemodynamics Will continue to follow. Additional Plan Discharge antibiotics per Dr Venegas. F/U with Dr Dodge 5-7 DAYS. Subjective Date/time seen: 03/23/21 17:17 Pt's abscess site improving. Wick is out. Scant drainage. She is now on Vancomycin for MRSA. Sensitivities pending. Could be discharged on Doxycycline if MRSA not sensitive to Clinda. Objective Data Vital Signs Vital Signs: Vital Signs - 24 hr 03/22/21 22:00 03/23/21 06:00 03/23/21 08:18 Temperature 97.5 F L 97.6 F Pulse Rate 56 L 59 L 60 Respiratory Rate 18 18 Blood Pressure 124/75 114/55 L Pulse Oximetry 100 98 03/23/21 14:00 03/23/21 15:01 Temperature 96.6 F L Pulse Rate 58 L Respiratory Rate 16 Blood Pressure 119/73 Pulse Oximetry 99 98 Intake/Output Intake/Output: Intake & Output 03/20/21 03/21/21 03/22/21 03/23/21 23:59 23:59 23:59 23:59 Intake Total 650 4100 4940 3920 Output Total 3514 728 5626 Balance 650 2500 4040 2920 Meds/Results Medications: Active Medications Generic Name Dose Route Start Last Admin Trade Name Freq PRN Reason Stop Dose Admin Acetaminophen 500 mg 03/20/21 20:54 03/22/21 08:44 Acetaminophen 500 Mg Tablet PO 500 mg Q6H PRN Administration Mild Pain (1-3) or Fever Hydrocodone Bitart/Acetaminophen 1 tab 03/20/21 20:20 03/21/21 21:47 Hydrocodone/Acetaminophen (*Crx) 5-325 Mg Tablet PO 1 tab Q4H PRN Administration Pain Rated 4-6 Amlodipine Besylate 5 mg 03/21/21 09:00 03/22/21 17:17 Amlodipine Besylate 5 Mg Tablet PO Not Given QAM ZOFIA Enoxaparin Sodium 30 mg 03/21/21 09:00 03/22/21 08:39 Enoxaparin 30 Mg/0.3 Ml Syringe SUB-Q 30 mg DAILY ZOFIA Administration Famotidine 20 mg 03/20/21 21:00 03/23/21 08:19 Famotidine 20 Mg/2 Ml Vial IV PUSH 20 mg Q12HR ZOFIA Administration Fluticasone Pr
--- NOTE | 2021-03-23 17:17 | WPDPN ---
Progress Note: A&P Assessment and Plan (1) Acute kidney injury: Code(s): N17.9 - Acute kidney failure, unspecified Status: Acute Assessment and Plan: IMPROVED APPRECIATE NEPHROLOGY NOTE continue to monitor presumably due to acute infection (#3) however, relative hypotension along with ARB + HCTZ likely contributed outpatient use of bactrim likely also responsible as well hold BP meds for now and allow BP to rise a bit for completeness, will check urine lytes and eosinophils as well as renal ultrasound follow repeat labs (2) CKD (chronic kidney disease) stage 4, GFR 15-29 ml/min: Code(s): N18.4 - Chronic kidney disease, stage 4 (severe) Status: Chronic Assessment and Plan: baseline creatinine runs ~ 1.7 - 2.1mg/dl due to hypertension based on outpatient evaluation (3) Abscess of face: Code(s): L02.01 - Cutaneous abscess of face Status: Acute Assessment and Plan: ID CONSULTED FOR ANTIBIOTIC SHOWS GOING HOME s/p I & D in the ER on antibiotics follow cultures Plastic Surgery consulted (4) Hypertension: Code(s): I10 - Essential (primary) hypertension Status: Acute Assessment and Plan: CONTINUE TO MONITOR on the lower side of normal for her follow trend of hemodynamics Will continue to follow. Additional Plan Discharge antibiotics per Dr Venegas. F/U with Dr Dodge 5-7 DAYS. Subjective Date/time seen: 03/23/21 17:17 Pt's abscess site improving. Wick is out. Scant drainage. She is now on Vancomycin for MRSA. Sensitivities pending. Could be discharged on Doxycycline if MRSA not sensitive to Clinda. Objective Data Vital Signs Vital Signs: Vital Signs - 24 hr 03/22/21 22:00 03/23/21 06:00 03/23/21 08:18 Temperature 97.5 F L 97.6 F Pulse Rate 56 L 59 L 60 Respiratory Rate 18 18 Blood Pressure 124/75 114/55 L Pulse Oximetry 100 98 03/23/21 14:00 03/23/21 15:01 Temperature 96.6 F L Pulse Rate 58 L Respiratory Rate 16 Blood Pressure 119/73 Pulse Oximetry 99 98 Intake/Output Intake/Output: Intake & Output 03/20/21 03/21/21 03/22/21 03/23/21 23:59 23:59 23:59 23:59 Intake Total 650 4100 4940 3920 Output Total 5219 547 3740 Balance 650 2500 4040 2920 Meds/Results Medications: Active Medications Generic Name Dose Route Start Last Admin Trade Name Erica PRN Reason Stop Dose Admin Acetaminophen 500 mg 03/20/21 20:54 03/22/21 08:44 Acetaminophen 500 Mg Tablet PO 500 mg Q6H PRN Administration Mild Pain (1-3) or Fever Hydrocodone Bitart/Acetaminophen 1 tab 03/20/21 20:20 03/21/21 21:47 Hydrocodone/Acetaminophen (*Crx) 5-325 Mg Tablet PO 1 tab Q4H PRN Administration Pain Rated 4-6 Amlodipine Besylate 5 mg 03/21/21 09:00 03/22/21 17:17 Amlodipine Besylate 5 Mg Tablet PO Not Given QAM [facility] Enoxaparin Sodium 30 mg 03/21/21 09:00 03/22/21 08:39 Enoxaparin 30 Mg/0.3 Ml Syringe SUB-Q 30 mg DAILY ZOFIA Administration Famotidine 20 mg 03/20/21 21:00 03/23/21 08:19 Famotidine 20 Mg/2 Ml Vial IV PUSH 20 mg Q12HR ZOFIA Administration Fluticasone Propionate 2 spray 03/21/21 09:00 03/23/21 08:18 Fluticasone Propionate 0.05% Na Spr 16 Gm Btl (*Bkc) NASAL 2 spray DAILY ZOFIA Administration Lactated Ringer's 1,000 mls @ 125 mls/hr 03/20/21 20:20 03/23/21 10:59 Lr - Lactated Ringers Iv IV CONT 125 mls/hr .Q8H ZOFAI Administration Vancomycin HCl 1,000 mg in 250 mls @ 250 mls/hr 03/23/21 09:00 03/23/21 10:57 Vancomycin 1,000 Mg/D5w 250 Ml IVPB 250 mls/hr Q36H ZOFIA Administration Nebivolol 5 mg 03/21/21 09:00 03/23/21 08:18 Nebivolol Hcl 5 Mg Tablet PO 5 mg DAILY ZOFIA Administration Venlafaxine HCl 150 mg 03/21/21 08:00 03/23/21 08:19 Venlafaxine Hcl Xr 75 Mg Cap.Er.24h PO 150 mg DAILY@0800 ZOFIA Administration Radiology Results: ITS Impressions Renal Ultrasound
[2021-03-23 21:15] VITALS: O2SAT 98
[2021-03-23 21:17] VITALS: BP 108/59; PULSE 50; RESP 18; TEMP 37.8; O2SAT 99
[2021-03-24] VITALS: TEMP 37.2
[2021-03-24] MEDS: LACTATED RINGERS 1,000 ML 125 ML IV CONT (02:33)
[2021-03-24 05:43] VITALS: BP 116/59; PULSE 57; RESP 18; TEMP 36.6; O2SAT 99
[2021-03-24 06:34] LABS: Albumin Level 3.6 g/dL (3.5-5.1); Anion Gap 9 mmol/L (8-16); Blood Urea Nitrogen 20 mg/dL (7-17); Calcium 9.1 mg/dL (8.4-10.2); Carbon Dioxide 25 mmol/L (22-30); Chloride 105 mmol/L (98-107); Estimated CRCL calculation 23 ml/min; Estimated Glomerular Filt Rate 32; Glucose 83 mg/dL (65-105); Phosphorus 3.7 mg/dL (2.5-4.5); Potassium 4.7 mmol/L (3.4-5.0); Sodium 139 mmol/L (137-145)
[2021-03-24] MEDS: VENLAFAXINE HCL XR 75 MG CAP.ER.24H 150 MG PO (08:40)
[2021-03-24] MEDS: ENOXAPARIN 30 MG/0.3 ML SYRINGE SUB-Q (08:41)
[2021-03-24 08:42] VITALS: PULSE 72
[2021-03-24] MEDS: NEBIVOLOL HCL 5 MG TABLET PO (08:42)
[2021-03-24] MEDS: FLUTICASONE PROPIONATE 0.05% NA SPR 16 GM BTL (*BKC) 2 SPRAY NASAL (08:44)
[2021-03-24] MEDS: ACETAMINOPHEN 500 MG TABLET PO ×2 (08:45→14:04)
[2021-03-24] MEDS: FAMOTIDINE 20 MG/2 ML VIAL IV PUSH (08:47)
--- NOTE | 2021-03-24 11:11 | WPDINFPN2 ---
Progress Note: A&P Assessment and Plan (1) Abscess of face: Code(s): L02.01 - Cutaneous abscess of face Status: Acute Assessment and Plan: chin abscess, no dissemination REC Doxy and mupirocin, see orders Subjective Date/time seen: 03/24/21 11:11 Objective Data Vital Signs Vital Signs: Vital Signs - 24 hr 03/23/21 14:00 03/23/21 15:01 03/23/21 21:15 Temperature 35.9 C L Pulse Rate 58 L Respiratory Rate 16 Blood Pressure 119/73 Pulse Oximetry 99 98 98 03/23/21 21:17 03/24/21 00:00 03/24/21 05:43 Temperature 37.8 C H 37.2 C 36.6 C Pulse Rate 50 L 57 L Respiratory Rate 18 18 Blood Pressure 108/59 L 116/59 L Pulse Oximetry 99 99 03/24/21 08:42 Temperature Pulse Rate 72 Respiratory Rate Blood Pressure Pulse Oximetry Intake/Output Intake/Output: Intake & Output 03/21/21 03/22/21 03/23/21 03/24/21 23:59 23:59 23:59 23:59 Intake Total 4100 4940 5410 1989 Output Total 8385 960 3166 Balance 2500 4040 4410 1989 Meds/Results Medications: Active Medications Generic Name Dose Route Start Last Admin Trade Name Freq PRN Reason Stop Dose Admin Acetaminophen 500 mg 03/20/21 20:54 03/24/21 08:45 Acetaminophen 500 Mg Tablet PO 500 mg Q6H PRN Administration Mild Pain (1-3) or Fever Hydrocodone Bitart/Acetaminophen 1 tab 03/20/21 20:20 03/21/21 21:47 Hydrocodone/Acetaminophen (*Crx) 5-325 Mg Tablet PO 1 tab Q4H PRN Administration Pain Rated 4-6 Amlodipine Besylate 5 mg 03/21/21 09:00 03/24/21 08:45 Amlodipine Besylate 5 Mg Tablet PO Not Given QAM ZOFIA Enoxaparin Sodium 30 mg 03/21/21 09:00 03/24/21 08:41 Enoxaparin 30 Mg/0.3 Ml Syringe SUB-Q 30 mg DAILY ZOFIA Administration Famotidine 20 mg 03/20/21 21:00 03/24/21 08:47 Famotidine 20 Mg/2 Ml Vial IV PUSH 20 mg Q12HR ZOFIA Administration Fluticasone Propionate 2 spray 03/21/21 09:00 03/24/21 08:44 Fluticasone Propionate 0.05% Na Spr 16 Gm Btl (*Bkc) NASAL 2 spray DAILY ZOFIA Administration Vancomycin HCl 1,000 mg in 250 mls @ 250 mls/hr 03/23/21 09:00 03/23/21 17:54 Vancomycin 1,000 Mg/D5w 250 Ml IVPB Infused Q36H ZOFIA Infusion Nebivolol 5 mg 03/21/21 09:00 03/24/21 08:42 Nebivolol Hcl 5 Mg Tablet PO 5 mg DAILY ZOFIA Administration Venlafaxine HCl 150 mg 03/21/21 08:00 03/24/21 08:40 Venlafaxine Hcl Xr 75 Mg Cap.Er.24h PO 150 mg DAILY@0800 ZOFIA Administration Radiology Results: ITS Impressions Renal Ultrasound 03/22/21 14:22 IMPRESSION: 1. Chronic right renal atrophy without acute findings. Finger X-Ray 03/22/21 17:41 IMPRESSION: Osteoarthritis. Labs Labs: Laboratory Results - last 24 hr 03/24/21 05:32 Sodium 139 Potassium 4.7 Chloride 105 Carbon Dioxide 25 Anion Gap 9 BUN 20 H Creatinine 1.90 H Estim Creat Clear Calc 23 Estimated GFR 32 L Glucose 83 Calcium 9.1 Phosphorus 3.7 Albumin 3.6
--- NOTE | 2021-03-24 11:28 | PM.DS ---
DS: Admitting Diagnosis Admitting Diagnosis Admitting Diagnosis: (1) Abscess of face: Code(s): L02.01 - Cutaneous abscess of face Status: Acute Assessment and Plan: Patient's abscess was I and eat by ER staff. Wound cultures pending. Dr. Dodge from plastic surgery has been consulted. Continue empiric antibiotic therapy with clindamycin. (2) Acute kidney injury superimposed on chronic kidney disease: Code(s): N17.9 - Acute kidney failure, unspecified; N18.9 - Chronic kidney disease, unspecified Status: Acute Assessment and Plan: Likely in part due to recent Bactrim administration. Will continue IV fluid hydration. Low-potassium diet has been ordered as the patient has mild hyperkalemia. Will hold patient's angiotensin receptor ady And hydrochlorothiazide. monitor urine output closely and repeat BMP in a.m.. Dr. Lima has been consulted. (3) Essential hypertension: Code(s): I10 - Essential (primary) hypertension Status: Acute Assessment and Plan: The patient's blood pressure is stable. Will hold the patient's Arb and hydrochlorothiazide at least for the short term given her acute renal failure. Continue home Bystolic and Norvasc. DS: Discharge Diagnosis Discharge Diagnosis (1) Acute kidney injury: Code(s): N17.9 - Acute kidney failure, unspecified Status: Acute Assessment and Plan: IMPROVED APPRECIATE NEPHROLOGY NOTE continue to monitor presumably due to acute infection (#3) however, relative hypotension along with ARB + HCTZ likely contributed outpatient use of bactrim likely also responsible as well hold BP meds for now and allow BP to rise a bit for completeness, will check urine lytes and eosinophils as well as renal ultrasound follow repeat labs (2) CKD (chronic kidney disease) stage 4, GFR 15-29 ml/min: Code(s): N18.4 - Chronic kidney disease, stage 4 (severe) Status: Chronic Assessment and Plan: baseline creatinine runs ~ 1.7 - 2.1mg/dl due to hypertension based on outpatient evaluation (3) Abscess of face: Code(s): L02.01 - Cutaneous abscess of face Status: Acute Assessment and Plan: ID CONSULTED FOR ANTIBIOTIC SHOWS GOING HOME s/p I & D in the ER on antibiotics follow cultures Plastic Surgery consulted (4) Hypertension: Code(s): I10 - Essential (primary) hypertension Status: Acute Assessment and Plan: CONTINUE TO MONITOR on the lower side of normal for her follow trend of hemodynamics Will continue to follow. DS: Summary Hospital Course Reason for hospitalization: abscess of the face Hospital Course: 65-year-old female with a past medical history hypertension and chronic kidney disease who presented to the ER due to an abscess on her chin. She had a pimple to her chin that she popped on the . She thought that after she popped the pimple that her symptoms would get better instead she developed increasing swelling and erythema and warmth. She subsequently went to her primary care provider on 03/17/2021 and was prescribed Bactrim. Despite taking the antibiotic therapy as directed she continued to develop swelling in her chin to the point that her lip became swollen. She also noticed a small area of swelling inside her mouth just anterior to her teeth. She was having difficulty speaking due to the amount of swelling in her mouth and lip. She reported that the area generally her but the pain was worse with palpation. she did take some Tylenol for her symptoms with only minimal relief in her discomfort. She knows not to take any ibuprofen or other NSAIDs due to her chronic kidney disease. She denies any chills but did feel little bit feverish. She did not check her temperature. she noticed a new pustule on her chin and tried to have her sister pop the pustule but the pain was too bad to a lower si
[2021-03-24 14:00] VITALS: BP 148/68; PULSE 47; RESP 18; TEMP 36.3; O2SAT 96
[2021-03-24] MEDS: amLODIPine BESYLATE 5 MG TABLET PO (14:05)
--- NOTE | 2021-03-25 10:02 | CONS_ITS ---
DATE OF CONSULTATION: 03/24/2021 REASON FOR CONSULTATION: MRSA chin abscess. HISTORY OF PRESENT ILLNESS: A 65-year-old female who has had no chronic skin conditions. She presented to the hospital on March 20 with several days of focal painful swelling over the chin extending into the left mandible without systemic fever, chills, or sweats. She has received no recent antibiotics until her primary care physician gave her trimethoprim sulfa. Here, she was found to have renal insufficiency and thus was admitted. Consultation now requested. She has been on vancomycin since arrival. No prior such episodes. No previous skin trauma or surgery. PRESENT MEDICATIONS: No immunosuppressants. HABITS: No tobacco. No alcohol. ALLERGIES: NONE KNOWN. PAST MEDICAL HISTORY: GERD, stage 3 chronic renal insufficiency, coronavirus vaccinated, hypertension, glucose intolerance, lupus, bunionectomy, cholecystectomy, rotator cuff surgery, BTL and torn meniscus surgery, also hysterectomy. FAMILY HISTORY: Not pertinent to her present illness. SOCIAL HISTORY: She is . Lives locally. 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 REVIEW OF SYSTEMS: Constitutional, skin, musculoskeletal, GI, respiratory otherwise negative. PHYSICAL EXAMINATION: VITAL SIGNS: Afebrile since arrival. She appears in no distress and her actual age 65, 16, 116/59. SKIN: Scar over the right upper extremity. She has a 1 cm area of denuded epithelium and a mild induration with a crust, there is no expressible pus. No fluctuance. Nontender. No erythema. This all over the anterior chin, left paramedian. HEENT: Conjunctivae are normal. Oropharynx, oral mucosa normal. NECK: No masses. No adenopathy. LUNGS: Clear to auscultation. CARDIAC: Bradycardic, regular. No murmurs. ABDOMEN: Soft, nontender. No organomegaly. LABORATORY DATA: Wound culture of the drainage in the emergency room MRSA Gram stain noted. White blood cell count was 15.6 originally, now 10.6 on the , hemoglobin 10.8, platelets are 271. Chemistries with a BUN 20, creatinine 1.9, glucose normal. UA normal. RADIOLOGY: None pertinent. ASSESSMENT: 1. Methicillin-resistant staphylococcus aureus skin abscess, without dissemination. 2. Physiologic leukocytosis. 3. Chronic renal insufficiency with marked worsening on arrival, now improved. RECOMMENDATIONS: 1. Doxycycline for 5 days. 2. Nasal mupirocin also for 5 days. She has noted several ulcers in the nose in the past year. 3. Okay with me for discharge. SONY BOSWELL M.D. SAP TECHNICAL DEVELOPER SAP TECHNICAL DEVELOPER D I MT: Eve
[2021-03-25 15:46] LABS: Chloride Rand Ur 49 mmol/L (32-290); Chloride/Creatinine Rand Ur 86 (38-318); Creatinine Random Urine 57 mg/dL (20-275)
== END 2021-03-24 14:40 | disposition home or self-care (01) | DRG 580 ==
LOC: ANHED 20:20 → ANH3MEDSUR 20:55
PROVIDERS: Emergency Medicine Emergency Medical Services; Internal Medicine Nephrology; Admitting Provider Internal Medicine; Emergency Provider Emergency Medicine; PCP Family Medicine; Visit Provider Internal Medicine
DX: L02.01 Cutaneous abscess of face (principal); N17.9 Acute kidney failure, unspecified; N18.4 Chronic kidney disease, stage 4 (severe); I12.9 Hypertensive chronic kidney disease with stage 1 through stage 4 chronic kidney disease, or unspecified chronic kidney disease; B95.62 Methicillin resistant Staphylococcus aureus infection as the cause of diseases classified elsewhere; K21.9 Gastro-esophageal reflux disease without esophagitis; Z79.899 Other long term (current) drug therapy
CPT/HCPCS: 10061; 36415; 73140; 76775; 80048; 80069; 81003; 82436; 82570; 84156; 84300; 85025; 85999; 86140; 87070; 87075; 87147; 87186; 87205; 96361; 96365; 96366; 96372; 96375; 96376; 99285; A9270; G0378; J0131; J1650; J2060; J3370; J7040; J7120

== ENCOUNTER 2021-10-14 09:03 | Outpatient (CLI) | payer MEDICARE, SELFPAY ==
--- NOTE | ~2021-10-14 | MM_ITS ---
EXAMINATION: MM screening juan BI w cleo HISTORY: Screening mammogram TECHNIQUE: Craniocaudal and mediolateral oblique 3-D tomosynthesis images were obtained and synthetic 2-D images were generated. CAD analysis was submitted and interpreted. COMPARISON: 10/10/2020, 10/03/2019, 09/19/2018 BREAST PARENCHYMAL COMPOSITION: There are scattered areas of fibroglandular density. FINDINGS: Scattered benign-appearing calcifications are present. There is no evidence of suspicious m ass, calcification, or architectural distortion to suggest malignancy in either breast. There has bee n no suspicious interval change. IMPRESSION: 1. No mammographic evidence of malignancy. 2. Recommend routine screening mammography in one year. BI-RADS Category 2: Benign finding(s). Reviewed, dictated and finalized at location A. T METAL DUCT INSTALLER
== END 2021-10-14 09:04 | disposition home or self-care (01) ==
LOC: ANHIMG 09:08
PROVIDERS: PCP Family Medicine; Visit Provider Student in an Organized Health Care Education/Training Program
DX: Z12.31 Encounter for screening mammogram for malignant neoplasm of breast (principal)
CPT/HCPCS: 77063; 77067

== ENCOUNTER 2021-10-22 14:50 | Emergency (ER) | payer OTHER, MEDICARE, SELFPAY ==
--- NOTE | ~2021-10-22 | CT_ITS ---
EXAMINATION: CT abdomen pelvis wo con EXAM DATE: 10/22/2021 17:32 INDICATION: Abnormal x-ray findings, fall . TECHNIQUE: Spiral CT of the abdomen and pelvis, and lumbar spine was performed without Omnipaque 350. Axial, coronal and sagittal images of the abdomen and pelvis were reviewed. Spiral CT of the lumba r spine was performed with same injection of contrast. Axial, coronal and sagittal images lumbar spi ne were reviewed. The dose-length product (DLP) for this examination was 1004.42 mGy-cm. The expos ure was tailored according to patient size (auto mA exposure control), and iterative reconstruction ( ASIR) was used as additional dose reduction technique. Comparison is made to prior examination from . FINDINGS: ABDOMEN PELVIS: The liver, spleen, adrenal glands and pancreas are unremarkable. There are cholecyst ectomy clips. There is no nephrolithiasis or hydronephrosis. Bilateral renal hypodensities most like ly cysts. The uterus is not identified and has likely been surgically resected. The bladder is unre markable. There is no retroperitoneal or pelvic lymphadenopathy. There is mild scattered arteriosc lerotic disease. The appendix is normal. There is mild scattered colonic diverticulosis. There is no adjacent inflamm atory change to suggest diverticulitis. The stomach and small bowel are unremarkable. There is expec hemalatha amount of colonic stool. No free intraperitoneal gas. The heart is normal in size. There are no pericardial or pleural effusions. The lung bases are unremarkable. There is acute mild compression fracture inferior endplate of T12. No unstable type injuries. There i s advanced lower lumbar facet arthropathy and bilateral sacroiliac joint primary osteoarthritis. 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 No sacral fracture suspected. Up to moderate lumbar central canal, neural foraminal stenosis. IMPRESSION: Acute mild compression fracture inferior endplate of T12. No acute intra-abdominal findin gs. Reviewed, dictated and finalized at location G. OR PHYSICIAN IMPRESSION: Acute mild compression fracture inferior endplate of T12. No acute intra-abdominal findings.
--- NOTE | ~2021-10-22 | XR_ITS ---
EXAMINATION: XR lumbar spine 2-3V, XR sacrum coccyx min 2V, XR hip BI 2V w AP pelvis DATE: 10/22/2021 16:27 INDICATION: Low back pain and bilateral hip pain, right greater than left post fall on wet floor. TECHNIQUE: 1. Anteroposterior and lateral views of the lumbar spine, and cone-down lateral view of the lumbosacr al junction were obtained. 2. AP view of the pelvis and AP and frog-leg lateral views of the left hip and of the right hip were obtained. 3. AP, lateral and angled AP views of the sacrum and coccyx were obtained. COMPARISON: Pelvis radiograph dated 12/03/2010 and lumbar spine radiographs dated 03/26/2008 FINDINGS: Lumbar spine: 4 mm anterolisthesis L3 on L4 and L4 on L5. Age indeterminate T12 compression fracture with 20% anter ior vertebral body height loss which is new since chest radiograph dated 08/10/2020 . Severe disc hei ght loss at L5-S1. Moderate disc height loss at L4-L5, L2-L3 and at a few levels in the lower thoraci c spine. Mild disc height loss at L1-L2 and L3-L4. Severe facet osteoarthritis bilaterally in the mid to lower lumbar spine. 4.4 cm diameter curvilinear calcification projecting over the right side of t he lumbosacral junction most likely related to prominent endplate osteophyte although differential in cludes atherosclerotic calcifications at the periphery of a right common iliac artery aneurysm. Areli cystectomy clips in right upper quadrant. Pelvis hips, sacrum and coccyx: Sacral arches are intact. No fractures in the pelvis or proximal femurs. Bilateral hip joint spaces a re relatively preserved. Mild chondrocalcinosis at the right femoral head. Mild osteoarthritis at the bilateral sacral iliac joints. There is also symmetric bilateral sclerotic osteitis condensans illi. Osteitis pubis. IMPRESSION: 1. Age-indeterminate T12 compression fracture with 20% anterior vertebral body height loss. 2. Severe lumbar and moderate lower thoracic spondylosis. 3. 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 No acute osseous abnormality in the pel vis or proximal femurs. 4. Curvilinear calcification diameter 4.4 cm projecting over the right side of the lumbosacral juncti on most likely related to prominent endplate osteophyte although differential includes atheroscleroti c calcifications at the periphery of a right common iliac artery aneurysm. If prior outside imaging i s unavailable for comparison would consider CT for definitive determination. Reviewed, dictated and finalized at location A. [employer] IMPRESSION: 1. Age-indeterminate T12 compression fracture with 20% anterior vertebral body height loss. 2. Severe lumbar and moderate lower thoracic spondylosis. 3. 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 No acute osseous abnormality in the pelvis or proximal femurs. 4. Curvilinear calcification diameter 4.4 cm projecting over the right side of the lumbosacral junction most likely related to prominent endplate osteophyte a lthough differential includes atherosclerotic calcifications at the periphery o f a right common iliac artery aneurysm. If prior outside imaging is unavailable for comparison would consider CT for definitive determination.
[2021-10-22 14:54] VITALS: BP 145/75; PULSE 78; RESP 18; TEMP 36.4; O2SAT 96
--- NOTE | 2021-10-22 15:59 | PC.NURSE ---
patient states that on monday she slipped and landed directly on bottom. c/o right groin/pelvis pain that radiates into right side back.
--- NOTE | 2021-10-22 16:09 | ED.FALL ---
HPI - Fall General Chief Complaint: Fall <Mirela Lamar PA-C - Last Filed: 10/22/21 19:05> Stated Complaint: fall, back pain <BRIELLE Ortiz Last Filed: 10/22/21 19:05> Time Seen by Provider: 10/22/21 15:08 <Mirela Lamar PA-C - Last Filed: 10/22/21 19:05> Source: patient <BRIELLE Ortiz Last Filed: 10/22/21 19:05> Mode of arrival: ambulatory <BRIELLE Ortiz Last Filed: 10/22/21 19:05> Limitations: no limitations <BRIELLE Ortiz Last Filed: 10/22/21 19:05> History of Present Illness HPI Narrative: This is a 66 year old female that presents to the ER for low back pain after a fall 3 days ago. Reports she slipped and fell onto her bottom. Reports since she has had pain in her hips and low back. Worse with ambulation and relieved with rest. Denies hitting her head, loss of consciousness, saddle anesthesia and bowel/bladder incontinence. <BRIELLE Ortiz Last Filed: 10/22/21 19:05> Related Data Home Medications: Home Medications Medication Instructions Recorded Confirmed cetirizine 10 mg tablet 10 mg PO DAILY PRN 05/04/21 05/04/21 <BRIELLE Ortiz Last Filed: 10/22/21 19:05> Allergies/Adverse Reactions: Allergies Allergy/AdvReac Type Severity Reaction Status Date / Time No Known Allergies Allergy Verified 05/04/21 15:32 <BRIELLE Ortiz Last Filed: 10/22/21 19:05> Review of Systems Review of Systems: CONSTITUTIONAL: Denies fever MUSCULOSKELETAL: Reports back pain, joint pain, and myalgia. NEUROLOGIC: Denies numbness, or weakness. <BRIELLE Ortiz Last Filed: 10/22/21 19:05> All systems reviewed & are unremarkable except as noted in HPI and below <BRIELLE Ortiz Last Filed: 10/22/21 19:05> [facility] Past Medical History Medical History: Medical History Acid reflux Allergic rhinitis Chronic kidney disease, stage III (moderate) COVID-19 vaccine series completed (~07/2020) Gout History of vaginal delivery x 2 Hypertension IFG (impaired fasting glucose) Lupus <Mirela Lamar PA-C - Last Filed: 10/22/21 19:05> Surgical History Surgical History: Surgical History History of bunionectomy of both great toes History of cholecystectomy History of repair of right rotator cuff History of surgical removal of meniscus of knee History of total hysterectomy (~1995) due to fibroids and dysfunctional uterine bleeding History of tubal ligation <Mirela Lamar PA-C - Last Filed: 10/22/21 19:05> Family History Family History: Family History Father , at age 82 Diabetes mellitus, Onset Age: 82 Hypertension Dementia Mother , at age 70 Hypertension Lung cancer Sibling Family history of blood dyscrasia Lung cancer her youngest sister of lung cancer. <Mirela Lamar PA-C - Last Filed: 10/22/21 19:05> Social History Social History: Social History Social History: she lives in [place] with her of 40 years. They have 1 daughter and 1 son. 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 She is a lifelong nonsmoker. She very rarely drinks a small amount of alcohol. She denies any illicit substance use. Primary care physician: Dr. Pola Navarro Code status: Full code Surrogate decision maker: Smoking status: Never smoker Second hand tobacco smoke exposure: No Alcohol intake: former Substance use: never Substance use type: does not use Gender identity (if verbalized by the patient): Female Spiritual care concerns: No <BRIELLE Ortiz Last Filed: 10/22/21 19:05> Exam Narrative: GENERAL: Well-appearing, well-nourished, and in no acute distress. HEAD: Normo
[2021-10-22 19:21] VITALS: BP 120/71; PULSE 64; RESP 18; TEMP 36.7; O2SAT 98
== END 2021-10-22 19:27 | disposition home or self-care (01) ==
PROVIDERS: Emergency Provider Emergency Medicine; PCP Family Medicine
DX: S22.080A Wedge compression fracture of T11-T12 vertebra, initial encounter for closed fracture (principal); N18.30 Chronic kidney disease, stage 3 unspecified; I12.9 Hypertensive chronic kidney disease with stage 1 through stage 4 chronic kidney disease, or unspecified chronic kidney disease; M10.9 Gout, unspecified; M47.816 Spondylosis without myelopathy or radiculopathy, lumbar region; M47.814 Spondylosis without myelopathy or radiculopathy, thoracic region; M86.8X0 Other osteomyelitis, multiple sites; W01.0XXA Fall on same level from slipping, tripping and stumbling without subsequent striking against object, initial encounter
CPT/HCPCS: 72100; 72220; 73521; 74176; 99284

== ENCOUNTER 2022-11-02 17:12 | Outpatient (CLI) | payer MEDICARE, SELFPAY | END 2022-11-02 17:13 | disposition home or self-care (01) | PROVIDERS: PCP Family Medicine; Visit Provider Family Medicine | DX: M10.9 Gout, unspecified (principal) | CPT/HCPCS: 36415; 84550 ==

== ENCOUNTER 2022-11-21 17:13 | Outpatient (CLI) | payer MEDICARE, SELFPAY ==
[2022-11-21 18:12] LABS: Albumin Level 4.2 g/dL (3.5-5.1); Anion Gap 9 mmol/L (8-16); Blood Urea Nitrogen 35 mg/dL (7-17); Calcium 8.6 mg/dL (8.4-10.2); Carbon Dioxide 26 mmol/L (22-30); Chloride 106 mmol/L (98-107); Estimated Glomerular Filt Rate 28; Glucose 93 mg/dL (65-110); Phosphorus 3.6 mg/dL (2.5-4.5); Sodium 141 mmol/L (137-145)
[2022-11-21 19:26] LABS: Creatinine Urine 76.7 mg/dL; Total Protein Urine Random 37 mg/dL; Ur Ttl Prot Creatinine Ratio 0.48 mg/mg (0-0.20)
[2022-11-21 19:59] LABS: Vitamin D 25 Hydroxy 43.3 ng/mL
== END 2022-11-21 17:14 | disposition home or self-care (01) ==
PROVIDERS: PCP Family Medicine; Visit Provider Internal Medicine Nephrology
DX: E55.9 Vitamin D deficiency, unspecified (principal); N25.81 Secondary hyperparathyroidism of renal origin; I12.9 Hypertensive chronic kidney disease with stage 1 through stage 4 chronic kidney disease, or unspecified chronic kidney disease; N18.32 Chronic kidney disease, stage 3b
CPT/HCPCS: 36415; 80069; 82306; 82570; 83970; 84156

== ENCOUNTER 2022-12-16 08:32 | Outpatient (CLI) | payer MEDICARE, SELFPAY ==
[2022-12-16 09:38] LABS: Cholesterol 189 mg/dL (0-200); HDL Direct 46 mg/dL; Triglycerides 166 mg/dL (<150)
[2022-12-16 09:50] LABS: LDL Cholesterol Direct 90 mg/dL
== END 2022-12-16 08:33 | disposition home or self-care (01) ==
LOC: ANHLAB 08:34
PROVIDERS: PCP Family Medicine; Visit Provider Family Medicine
DX: E78.5 Hyperlipidemia, unspecified (principal)
CPT/HCPCS: 36415; 80061

== ENCOUNTER 2023-01-26 01:09 | Day surgery (SDC) | payer MEDICARE, SELFPAY ==
[2023-01-12 14:11] VITALS: BMI 39.1
[2023-01-26 07:29] VITALS: BP 144/73; PULSE 118; RESP 18; TEMP 36.3; O2SAT 99; BMI 39.3
[2023-01-26] MEDS: LACTATED RINGERS 1,000 ML 150 ML IV CONT (07:42)
--- NOTE | 2023-01-26 07:53 | PM.HPGS ---
History of Present Illness History of Present Illness Consent: Risks, benefits, and alternatives have been discussed and questions answered. Patient agrees to proceed with procedure. Chief complaint: neoplasm screening Narrative: Juanis Garcia is a 67 year old female Presents for screening colonoscopy. Patient's current weight appetite and bowel movements are normal. Patient denies abdominal pain. She has had no bleeding. In 2010 patient had an adenomas colon polyp. In 2017 colonoscopy was unremarkable. Patient presents today for neoplasia screening. Review of Systems Review of Systems: Review of systems noncontributory. [facility] Past Medical History Medical History (Updated 01/26/23 @ 07:55 by Shadi Lemus MD) Acid reflux Allergic rhinitis Chronic kidney disease, stage III (moderate) Compressed vertebrae Oct 19 from fall COVID-19 vaccine series completed (~07/2020) Gout History of vaginal delivery x 2 Hy kid NOS w cr kid I-IV Hypertension IFG (impaired fasting glucose) Lupus Surgical History Surgical History History of bunionectomy of both great toes History of cholecystectomy History of repair of right rotator cuff History of surgical removal of meniscus of knee History of total hysterectomy (~1995) due to fibroids and dysfunctional uterine bleeding History of tubal ligation Family History Family History Father , at age 82 Diabetes mellitus, Onset Age: 82 Hypertension Dementia Mother , at age 70 Hypertension Lung cancer Sibling Family history of blood dyscrasia Lung cancer her youngest sister of lung cancer. Social History Social History Social History: she lives in [place] with her of 40 years. They have 1 daughter and 1 son. 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 She is a lifelong nonsmoker. She very rarely drinks a small amount of alcohol. She denies any illicit substance use. Primary care physician: Dr. Pola Navarro Code status: Full code Surrogate decision maker: Smoking status: Never smoker Second hand tobacco smoke exposure: No Alcohol intake: former Substance use: never Substance use type: does not use Living arrangements: with family Occupation/Education: occupation Gender identity (if verbalized by the patient): Female Spiritual care concerns: No Meds Home Medications and Allergies Home Medications Medication Instructions Recorded Confirmed Type fluticasone propionate 50 2 spray intranasal DAILY #16 grams 02/27/21 01/12/23 Rx mcg/actuation nasal spray,suspension (Flonase Allergy Relief) cetirizine 10 mg tablet (Zyrtec) 10 mg PO DAILY PRN Allergy Symptoms 05/04/21 01/12/23 History nebivolol 5 mg tablet 5 mg PO DAILY #90 tabs 12/14/22 01/12/23 Rx olmesartan 20 mg-amlodipine 5 1 tablet PO DAILY #90 tabs 12/14/22 01/12/23 Rx mg-hydrochlorothiazide 12.5 mg tablet venlafaxine 150 mg 150 mg PO DAILY #90 caps 12/14/22 01/12/23 Rx capsule,extended release 24 hr colchicine 0.6 mg tablet 0.6 mg PO .COMPLEX #6 tabs 01/10/23 Rx pantoprazole 40 mg tablet,delayed 40 mg PO QAM #90 tabs 01/10/23 01/12/23 Rx release Allergies Allergy/AdvReac Type Severity Reaction Status Date / Time No Known Allergies Allergy Verified 01/12/23 13:58 Vital Signs Vital Signs - 24 hr 01/26/23 07:29 Temperature 97.4 F L Pulse Rate 118 H Respiratory Rate 18 Blood Pressure 144/73 H Pulse Oximetry 99 Oxygen Delivery Room Air Exam Narrative: Physical exam reveals patient to be alert. Vital signs stable. HEENT exam is unremarkable. Patient is anicteric. Lungs are clear to auscultation and percussion. Heart is without murmur or extra sounds. Abdomen bowel sounds are present soft nonte
--- NOTE | 2023-01-26 08:07 | WPDANESEPPF ---
Anes - Initial Pre Proc Eval Procedure: Operation Date: 01/26/23 08:30 Proposed Procedures p Screening Colonoscopy - Shadi Lemus MD Date/Time: 01/26/23 08:07 Surgeon: Shadi Lemus MD Pre Op Diagnosis: neoplasm screening Patient Data Age: 67 Gender: F Height: 1.57 m Weight: 97.5 kg Last Vital Signs Temp 97.4 F L 01/26/23 07:29 Pulse 118 H 01/26/23 07:29 Resp 18 01/26/23 07:29 BP 144/73 H 01/26/23 07:29 Pulse Ox 99 01/26/23 07:29 O2 Del Method Room Air 01/26/23 07:29 Allergies Allergy/AdvReac Type Severity Reaction Status Date / Time No Known Allergies Allergy Verified 01/12/23 13:58 Home Medications Medication Instructions Recorded Confirmed Type fluticasone propionate 50 2 spray intranasal DAILY #16 grams 02/27/21 01/12/23 Rx mcg/actuation nasal spray,suspension (Flonase Allergy Relief) cetirizine 10 mg tablet (Zyrtec) 10 mg PO DAILY PRN Allergy Symptoms 05/04/21 01/12/23 History nebivolol 5 mg tablet 5 mg PO DAILY #90 tabs 12/14/22 01/12/23 Rx olmesartan 20 mg-amlodipine 5 1 tablet PO DAILY #90 tabs 12/14/22 01/12/23 Rx mg-hydrochlorothiazide 12.5 mg tablet venlafaxine 150 mg 150 mg PO DAILY #90 caps 12/14/22 01/12/23 Rx capsule,extended release 24 hr colchicine 0.6 mg tablet 0.6 mg PO .COMPLEX #6 tabs 01/10/23 01/26/23 Rx pantoprazole 40 mg tablet,delayed 40 mg PO QAM #90 tabs 01/10/23 01/12/23 Rx release Patient hx anesthesia problems: none Family hx anesthesia problems: none Results Review: All pre-operative results and documents have been reviewed as part of the pre-operative evaluation. [facility] Past Medical History Medical History (Updated 01/26/23 @ 07:55 by Shadi Lemus MD) Acid reflux Allergic rhinitis Chronic kidney disease, stage III (moderate) Compressed vertebrae Oct 19 from fall COVID-19 vaccine series completed (~07/2020) Gout History of vaginal delivery x 2 Hy kid NOS w cr kid I-IV Hypertension IFG (impaired fasting glucose) Lupus Surgical History Surgical History History of bunionectomy of both great toes History of cholecystectomy History of repair of right rotator cuff History of surgical removal of meniscus of knee History of total hysterectomy (~1995) due to fibroids and dysfunctional uterine bleeding History of tubal ligation Family History Family History Father , at age 82 Diabetes mellitus, Onset Age: 82 Hypertension Dementia Mother , at age 70 Hypertension Lung cancer Sibling Family history of blood dyscrasia Lung cancer her youngest sister of lung cancer. Social History Social History Social History: she lives in [place] with her of 40 years. They have 1 daughter and 1 son. 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 She is a lifelong nonsmoker. She very rarely drinks a small amount of alcohol. She denies any illicit substance use. Primary care physician: Dr. Pola Navarro Code status: Full code Surrogate decision maker: Smoking status: Never smoker Second hand tobacco smoke exposure: No Alcohol intake: former Substance use: never Substance use type: does not use Living arrangements: with family Occupation/Education: occupation Gender identity (if verbalized by the patient): Female Spiritual care concerns: No Anes - Eval Final PreProcedure Day of Procedure 01/26/23 08:07 Patient weight: morbidly obese Heart: regular rate and rhythm Lungs: clear to auscultation Airway: Mallampati scale class II Neurological: alert and oriented Last oral intake: >/= 8 hours ASA classification: III Emergent: no Anesthetic plan: proceed Anesthesia type and monitoring: general GIVS and standard monitoring Results Review: All pre-operative res
[2023-01-26 08:54] VITALS: BP 127/84; PULSE 60; RESP 19; O2SAT 99
[2023-01-26 09:04] VITALS: BP 143/76; PULSE 62; RESP 19; O2SAT 99
[2023-01-26 09:14] VITALS: BP 144/74; PULSE 65; RESP 22; O2SAT 99
== END 2023-01-26 09:23 | disposition home or self-care (01) ==
PROVIDERS: PCP Family Medicine; Visit Provider Internal Medicine Gastroenterology
PROC: 0DJD8ZZ Inspection of Lower Intestinal Tract, Via Natural or Artificial Opening Endoscopic (ICD-10-PCS; CPT 45378; principal; 2023-01-26 08:30)
DX: Z12.11 Encounter for screening for malignant neoplasm of colon (principal); D12.5 Benign neoplasm of sigmoid colon; K64.8 Other hemorrhoids; K57.30 Diverticulosis of large intestine without perforation or abscess without bleeding; K21.9 Gastro-esophageal reflux disease without esophagitis; I12.9 Hypertensive chronic kidney disease with stage 1 through stage 4 chronic kidney disease, or unspecified chronic kidney disease; N18.30 Chronic kidney disease, stage 3 unspecified; M32.9 Systemic lupus erythematosus, unspecified; E66.01 Morbid (severe) obesity due to excess calories; Z68.39 Body mass index [BMI] 39.0-39.9, adult
CPT/HCPCS: 45385; 88305; J2704; J7120

== ENCOUNTER 2023-04-14 10:17 | Outpatient (CLI) | payer MEDICARE, SELFPAY ==
[2023-04-14 11:14] LABS: Albumin Level 4.7 g/dL (3.5-5.1); Anion Gap 11 mmol/L (8-16); Blood Urea Nitrogen 26 mg/dL (7-17); Calcium 9.2 mg/dL (8.4-10.2); Carbon Dioxide 27 mmol/L (22-30); Chloride 98 mmol/L (98-107); Estimated Glomerular Filt Rate 34; Glucose 92 mg/dL (65-110); Phosphorus 4.1 mg/dL (2.5-4.5); Potassium 4.2 mmol/L (3.4-5.0); Sodium 136 mmol/L (137-145)
[2023-04-14 12:14] LABS: Creatinine Urine 125.6 mg/dL; Total Protein Urine Random 156 mg/dL; Ur Ttl Prot Creatinine Ratio 1.24 mg/mg (0-0.20)
== END 2023-04-14 10:18 | disposition home or self-care (01) ==
LOC: ANHLAB 10:18
PROVIDERS: PCP Family Medicine; Visit Provider Internal Medicine Nephrology
DX: I12.9 Hypertensive chronic kidney disease with stage 1 through stage 4 chronic kidney disease, or unspecified chronic kidney disease (principal); N18.4 Chronic kidney disease, stage 4 (severe)
CPT/HCPCS: 36415; 80069; 82570; 84156

== ENCOUNTER 2023-06-05 11:07 | Emergency (ER) | payer MEDICARE, SELFPAY ==
[2023-06-05] VITALS (16 sets, daily range): BP systolic 114–150; BP diastolic 54–84; PULSE 54–72; RESP 17–26; TEMP 36.9; O2SAT 98–100
--- NOTE | ~2023-06-05 | CT_ITS ---
EXAMINATION: CT abdomen pelvis wo con DATE: 06/05/2023 12:50 INDICATION: Left-sided abdominal pain TECHNIQUE: Computed tomography (CT) of the abdomen and pelvis was performed without intravenous contr ast. The dose-length product (DLP) was 1090.66 mGy-cm. Automated exposure control and iterative recon struction technique were employed. COMPARISON: 10/22/2021 FINDINGS: Minimal dependent atelectasis is present in the lung bases. The heart size is normal. Calci fied coronary artery atherosclerosis is noted. There is a small sliding hiatal hernia. The liver, spl een, pancreas, and adrenal glands are normal. Changes of cholecystectomy are noted. Cysts of the kidn eys measure up to 2 cm on the right. No pathologically enlarged abdominal or pelvic lymph nodes are i dentified. No free intraperitoneal gas or evidence of bowel obstruction. The appendix is normal. Ther e is a chronic compression fracture of T12. IMPRESSION: 1. No CT correlate for the patient's symptoms. Reviewed, dictated and finalized at location B.
[2023-06-05 11:36] LABS: Basophils Percent Auto 0.1 % (0.2-1.2); Hematocrit 40.9 % (37.0-47.0); Immature Granulocyte Absolute 0.08 K/mm3 (0.00-0.031); Immature Granulocyte Percent A 0.8 % (0-0.5); Lymphocytes Percent Auto 19.9 % (18.3-44.2); Mean Corpuscular HGB Conc 31.8 g/dl (32-36); Mean Corpuscular Hemoglobin 29.4 pg (26-34); Mean Corpuscular Volume 92.5 fl (80-100); Mean Platelet Volume 10.4 fl (7.4-10.4); Monocytes Absolute Auto 0.8 K/mm3 (0.1-0.6); Monocytes Percent Auto 8.3 % (2.6-8.5); Neutrophils Absolute Auto 7.1 K/mm3 (1.3-6.7); Neutrophils Percent Auto 70.9 % (45.5-73.1); Platelet Count Result 268 k/mm3 (150-375); Red Blood Count 4.42 M/mm3 (4.2-5.4); Red Cell Distribution Width 13.3 % (11.5-14.5); White Blood Count 10.1 K/mm3 (4.5-10.0)
[2023-06-05 11:45] LABS: Appearance Urine Clear (Clear); Bacteria Urine None Seen /hpf; Bilirubin Urine Negative (Negative); Blood Urine Negative (Negative); Color Urine Yellow (Yellow); Glucose Urine UA Negative (Negative); Ketones Urine Negative (Negative); Leukocyte Esterase Ur Negative LEU/UL (Negative); Nitrate Urine Negative (Negative); Non Pathogenic Casts 0-2; Protein Urine 1+ mg/dL (Negative); RBC Urine 0-2 /hpf (0-2); Specific Grav Ur 1.015 (1.001-1.035); Squamous Epithelial Cell Urine None seen /hpf (Few); Urobilinogen Urine 0.2 mg/dL (<2.0); WBC Urine 0-5 /hpf
[2023-06-05 11:47] LABS: Alanine Aminotransferase 22 U/L (6-35); Albumin Level 4.4 g/dL (3.5-5.1); Alkaline Phosphatase 67 U/L (38-126); Anion Gap 9 mmol/L (8-16); Aspartate Amino Transferase 37 U/L (14-36); Bilirubin,Total 0.6 mg/dL (0.2-1.3); Blood Urea Nitrogen 41 mg/dL (7-17); Calcium 9.1 mg/dL (8.4-10.2); Carbon Dioxide 27 mmol/L (22-30); Chloride 103 mmol/L (98-107); Estimated CRCL calculation 22 ml/min; Estimated Glomerular Filt Rate 25; Glucose 110 mg/dL (65-110); Lipase 191 U/L (23-300); Potassium 4.1 mmol/L (3.4-5.0); Sodium 139 mmol/L (137-145)
[2023-06-05 11:51] LABS: Add Urine Microscopic? YES
--- NOTE | 2023-06-05 12:28 | ED.ABDPAIN ---
HPI - Abdominal Pain General Chief Complaint: Abdominal Pain Stated Complaint: Left side/flank pain Time Seen by Provider: 06/05/23 12:06 History of Present Illness HPI narrative: Patient is a 67-year-old female with a history of hypertension, GERD presenting with abdominal pain. Patient states that for the last several weeks she has had lower left abdominal pain that radiates into her left upper abdomen. States that certain movements and walking down stairs makes it worse. States that it was most severe last night and this morning so she came in for evaluation. No nausea or vomiting, diarrhea, constipation, fevers or chills, dysuria, hematuria, melena, hematochezia. Denies pain elsewhere. Related Data Home Medications Medication Instructions Recorded Confirmed cetirizine 10 mg tablet (Zyrtec) 10 mg PO DAILY PRN Allergy Symptoms 05/04/21 04/17/23 Allergies Allergy/AdvReac Type Severity Reaction Status Date / Time No Known Allergies Allergy Verified 06/05/23 11:26 Review of Systems Review of Systems: All systems reviewed & are unremarkable except as noted in HPI and below PMFSH Past Medical History Medical History Acid reflux Allergic rhinitis Chronic kidney disease, stage III (moderate) Compressed vertebrae Oct 19 from fall COVID-19 vaccine series completed (~07/2020) Gout History of vaginal delivery x 2 Hy kid NOS w cr kid I-IV Hypertension IFG (impaired fasting glucose) Lupus Surgical History Surgical History History of bunionectomy of both great toes History of cholecystectomy History of repair of right rotator cuff History of surgical removal of meniscus of knee History of total hysterectomy (~1995) due to fibroids and dysfunctional uterine bleeding History of tubal ligation Family History Family History Father , at age 82 Diabetes mellitus, Onset Age: 82 Hypertension Dementia Mother , at age 70 Hypertension Lung cancer Sibling Family history of blood dyscrasia Lung cancer her youngest sister of lung cancer. Social History Social History Social History: she lives in [place] with her of 40 years. They have 1 daughter and 1 son. 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 She is a lifelong nonsmoker. She very rarely drinks a small amount of alcohol. She denies any illicit substance use. Primary care physician: Dr. Pola Navarro Code status: Full code Surrogate decision maker: Smoking status: Never smoker Second hand tobacco smoke exposure: No Alcohol intake: former Substance use: never Substance use type: does not use Lack of Transportation: No Lack of Food: Never True Current Housing: I Have Housing Concerned About Future Housing: No Difficulty Paying Gas/Electric Bills: No Difficulty Paying for Meds: No Currently Unemployed: No Education: High School Diploma/GED Difficulty w/ Childcare or Family Care: No Living arrangements: with family Occupation/Education: occupation Gender identity (if verbalized by the patient): Female Sexual Orientation (if Verbalized by the Patient): Straight or Heterosexual Spiritual care concerns: No Exam Narrative: GENERAL: Well-appearing, well-nourished, and in no acute distress. HEAD: Normocephalic, atraumatic. EYES: PERRLA and EOMI. ENT: Nares clear, no rhinorrhea or epistaxis. Mucous membranes moist. NECK: Supple. CHEST: Clear to auscultation. No respiratory distress. HEART: Regular rate and rhythm. ABDOMEN: Soft, + left upper and left lower quadrant tenderness without guarding or rebound EXTREMITIES: Normal range of motion. No edema. SKIN: Warm, dry, no rash. NEURO: Alert and oriented x3. PSYCH: Normal mood an
[2023-06-05] MEDS: FAMOTIDINE 20 MG/2 ML VIAL IV PUSH (12:39)
[2023-06-05] MEDS: SODIUM CHLORIDE 0.9% IV 1,000 ML 999 ML IV CONT (12:39)
[2023-06-05] MEDS: MORPHINE SULFATE (*CRX) 4 MG/ML INJ IV PUSH (12:39)
== END 2023-06-05 14:22 | disposition home or self-care (01) ==
PROVIDERS: Preventive Medicine Aerospace Medicine; Emergency Provider Emergency Medicine; PCP Family Medicine
DX: R10.32 Left lower quadrant pain (principal); I12.9 Hypertensive chronic kidney disease with stage 1 through stage 4 chronic kidney disease, or unspecified chronic kidney disease; N18.30 Chronic kidney disease, stage 3 unspecified; M10.9 Gout, unspecified; K21.9 Gastro-esophageal reflux disease without esophagitis; Z90.49 Acquired absence of other specified parts of digestive tract; Z90.710 Acquired absence of both cervix and uterus
CPT/HCPCS: 36415; 74176; 80053; 81001; 83690; 85025; 96361; 96374; 96375; 99284; J2270; J7030

== ENCOUNTER 2023-06-13 15:08 | Outpatient (CLI) | payer MEDICARE, SELFPAY ==
--- NOTE | ~2023-06-13 | MM_ITS ---
EXAMINATION: MM screening juan BI w cleo HISTORY: Screening mammogram TECHNIQUE: Craniocaudal and mediolateral oblique 3-D tomosynthesis images were obtained and synthetic 2-D images were generated. CAD analysis was submitted and interpreted. COMPARISON: 10/14/2021, 10/10/2020, 10/03/2019, 09/19/2018 bilateral screening mammogram examinations BREAST PARENCHYMAL COMPOSITION: There are scattered areas of fibroglandular density. FINDINGS: Scattered bilateral benign calcifications are again present. There are 2 small asymmetric opacities in the posterior upper right breast on MLO view. Diagnostic ri ght mammogram is recommended, with ultrasound if required. Otherwise there is no evidence of suspicious mass, calcification, or architectural distortion to sugg est malignancy in either breast. There has been no other suspicious interval change. IMPRESSION: 1. 2 small asymmetric opacities in the posterior upper outer right breast 2. Diagnostic right mammogram is recommended, with ultrasound if required BI-RADS Category 0: Incomplete: Needs additional imaging evaluation. Reviewed, dictated and finalized at location A.
--- NOTE | ~2023-06-13 | DEXA_ITS ---
Bone Density Report Name: CHANELL MOON Age: 67 Sex: Female Ethnicity: Black Date of : 1955 Indication: postmenopausal; screening for osteoporosis; parental hip fracture; height loss; hysterectomy; Referring Provider: RADHAMES BERMEO Study: Bone densitometry was performed. Exam Date: June 13, 2023 Accession number: [id number] Bone Density: Region BMD T-score Z-score Classification AP Spine(L1-L4) 1.332 2.6 3.9 Normal Femoral Neck (Left) 0.749 -0.9 0.0 Normal Total Hip (Left) 0.885 -0.5 0.2 Normal Femoral Neck (Right) 0.742 -1.0 -0.1 Normal Total Hip (Right) 0.877 -0.5 0.1 Normal Total Hip Mean 0.881 -0.5 0.2 Normal World Health Organization criteria for BMD impression classify patients as: Normal (T-score at or above -1.0), Osteopenia (T-score between -1.0 and -2.5), or Osteoporosis (T-score at or below -2.5). 10-year Fracture Risk: FRAX not reported because: All T-scores for Spine Total, Hip Total, Femoral Neck at or above -1.0 Previous Exams: Region Exam Age BMD T-score BMD Change BMD Change Date g/cm2 vs Baseline vs Previous AP Spine (L1-L4) 06/13/2023 67 1.332 2.6 -0.029 (-2.2%) -0.008 (-0.6%) 01/13/2017 61 1.340 2.7 -0.021 (-1.5%) -0.021 (-1.5%) 09/02/2014 58 1.361 2.9 Total Hip(Left) 06/13/2023 67 0.885 -0.5 -0.085 (-8.8%) -0.032 (-3.5%) 01/13/2017 61 0.917 -0.2 -0.053 (-5.5%) -0.053 (-5.5%) 09/02/2014 58 0.970 0.2 Total Hip(Right) 06/13/2023 67 0.877 -0.5 -0.099 (-10.2% -0.037 (-4.0%) 01/13/2017 61 0.914 -0.2 -0.062 (-6.4%) -0.062 (-6.4%) 09/02/2014 58 0.976 0.3 *Denotes significance at 95% confidence level, LSC for AP Spine = 0.022 g/cm2, LSC for Total Hip = 0.027 g/cm2 Clinical Information Provided by Patient: Parent has had a hip fracture Has the following medical conditions: Hysterectomy Patient maximum height was 62.5 Menopause Age: 40 Drinks caffeinated beverages Onset of menses at age 11 Number of children 2 Impression: The patient has normal bone mass. The patient has risk factors, including: parental hip fracture. The BMD for the Total Hip(Left) decreased, changing by -3.5% since the last DXA exam. The BMD for the Total Hip(Right) decreased, changing by -4.0% since the last DXA exam. Discussion: BONE DENSITY IS ABOVE THE MINIMUM DESIRABLE LEVEL AT ALL SKELETAL SITES TESTED. This patient?s bone mineral density is above the minimum balaji
== END 2023-06-13 15:09 | disposition home or self-care (01) ==
PROVIDERS: PCP Family Medicine; Visit Provider Family Medicine
DX: Z12.31 Encounter for screening mammogram for malignant neoplasm of breast (principal); Z78.0 Asymptomatic menopausal state; R92.8 Other abnormal and inconclusive findings on diagnostic imaging of breast
CPT/HCPCS: 77063; 77067; 77080

== ENCOUNTER 2023-06-23 13:35 | Outpatient (CLI) | payer MEDICARE, SELFPAY ==
[2023-06-23 14:17] LABS: Anion Gap 7 mmol/L (8-16); Blood Urea Nitrogen 25 mg/dL (7-17); Calcium 8.9 mg/dL (8.4-10.2); Carbon Dioxide 29 mmol/L (22-30); Chloride 102 mmol/L (98-107); Estimated Glomerular Filt Rate 28; Glucose 121 mg/dL (65-110); Potassium 3.9 mmol/L (3.4-5.0); Sodium 138 mmol/L (137-145)
== END 2023-06-23 13:36 | disposition home or self-care (01) ==
LOC: ANHLAB 13:36
PROVIDERS: PCP Family Medicine; Visit Provider Family Medicine
DX: N18.4 Chronic kidney disease, stage 4 (severe) (principal)
CPT/HCPCS: 36415; 80048

== ENCOUNTER 2023-07-05 12:47 | Outpatient (CLI) | payer MEDICARE, SELFPAY ==
--- NOTE | ~2023-07-05 | MMUS_ITS ---
EXAMINATION: MM diagnostic juan RT w cleo, US breast RT limited HISTORY: Follow-up right breast asymmetry TECHNIQUE: Additional 3-D tomosynthesis images of the right breast were performed and synthetic 2-D i mages were generated. CAD analysis was submitted and interpreted. High resolution Limited right breas t ultrasound was performed. COMPARISON: 06/13/2023 BREAST PARENCHYMAL COMPOSITION: Breast composed of scattered areas of fibroglandular density FINDINGS: MAMMOGRAPHIC FINDINGS: There are persistent focal asymmetry superiorly in the right breast, not appreciated on CC view. Ther e are no suspicious calcifications or architectural distortion. ULTRASOUND: Limited right breast ultrasound: At 10:00, 9 cm from the nipple, there is a 4 mm cyst, likely corresp onding to one of the focal asymmetries. No additional masses are identified. IMPRESSION: 1. Probable benign findings of the right breast in the upper half on MLO and mediolateral views. One of which is characterized as a cyst by ultrasound. 2. Recommend 6 month follow-up Limited right breast ultrasound and diagnostic right mammogram. BI-RADS category 3, probably benign findings. Reviewed, dictated and finalized at location A. IMPRESSION: 1. Probable benign findings of the right breast in the upper half on MLO and me diolateral views. One of which is characterized as a cyst by ultrasound. 2. Recommend 6 month follow-up Limited right breast ultrasound and diagnostic r ight mammogram. BI-RADS category 3, probably benign findings.
== END 2023-07-05 12:48 | disposition home or self-care (01) ==
LOC: ANHIMG 12:49
PROVIDERS: PCP Family Medicine; Visit Provider Physician Assistant Medical
DX: R92.8 Other abnormal and inconclusive findings on diagnostic imaging of breast (principal)
CPT/HCPCS: 76642; 77061; 77065; G0279

== ENCOUNTER 2023-08-11 12:41 | Outpatient (CLI) | payer MEDICARE, SELFPAY ==
[2023-08-11 14:10] LABS: Creatinine Urine 33.8 mg/dL; Total Protein Urine Random 31 mg/dL; Ur Ttl Prot Creatinine Ratio 0.92 mg/mg (0-0.20)
[2023-08-11 14:11] LABS: Albumin Level 4.1 g/dL (3.5-5.1); Anion Gap 11 mmol/L (8-16); Blood Urea Nitrogen 29 mg/dL (7-17); Calcium 9.1 mg/dL (8.4-10.2); Carbon Dioxide 25 mmol/L (22-30); Chloride 99 mmol/L (98-107); Estimated Glomerular Filt Rate 30; Glucose 102 mg/dL (65-110); Phosphorus 3.4 mg/dL (2.5-4.5); Potassium 4.4 mmol/L (3.4-5.0); Sodium 135 mmol/L (137-145)
[2023-08-11 14:23] LABS: Parathyroid Intact 49.5 pg/mL (7.5-53.5)
[2023-08-11 14:55] LABS: Vitamin D 25 Hydroxy 59.3 ng/mL
== END 2023-08-11 12:42 | disposition home or self-care (01) ==
LOC: ANHLAB 12:43
PROVIDERS: PCP Family Medicine; Visit Provider Internal Medicine Nephrology
DX: I12.9 Hypertensive chronic kidney disease with stage 1 through stage 4 chronic kidney disease, or unspecified chronic kidney disease (principal); N18.32 Chronic kidney disease, stage 3b; E55.9 Vitamin D deficiency, unspecified; N25.81 Secondary hyperparathyroidism of renal origin
CPT/HCPCS: 36415; 80069; 82306; 82570; 83970; 84156

== ENCOUNTER 2023-08-22 11:39 | Outpatient (CLI) | payer MEDICARE, SELFPAY ==
[2023-08-22 12:06] LABS: Uric Acid 9.7 mg/dL (2.5-7.5)
== END 2023-08-22 11:40 | disposition home or self-care (01) ==
PROVIDERS: PCP Family Medicine; Visit Provider Family Medicine
DX: M10.9 Gout, unspecified (principal)
CPT/HCPCS: 36415; 84550

== ENCOUNTER 2023-12-01 12:56 | Outpatient (CLI) | payer MEDICARE, SELFPAY ==
[2023-12-01 13:52] LABS: Albumin Level 4.3 g/dL (3.5-5.1); Anion Gap 5 mmol/L (8-16); Blood Urea Nitrogen 42 mg/dL (7-17); Calcium 9.4 mg/dL (8.4-10.2); Carbon Dioxide 29 mmol/L (22-30); Chloride 101 mmol/L (98-107); Estimated Glomerular Filt Rate 30; Glucose 92 mg/dL (65-110); Phosphorus 3.4 mg/dL (2.5-4.5); Potassium 4.1 mmol/L (3.4-5.0); Sodium 135 mmol/L (137-145)
[2023-12-01 14:52] LABS: Creatinine Urine 35.8 mg/dL; Total Protein Urine Random 29 mg/dL; Ur Ttl Prot Creatinine Ratio 0.81 mg/mg (0-0.20)
== END 2023-12-01 12:57 | disposition home or self-care (01) ==
LOC: ANHLAB 12:58
PROVIDERS: PCP Family Medicine; Visit Provider Internal Medicine Nephrology
DX: I12.9 Hypertensive chronic kidney disease with stage 1 through stage 4 chronic kidney disease, or unspecified chronic kidney disease (principal); N18.32 Chronic kidney disease, stage 3b
CPT/HCPCS: 36415; 80069; 82570; 84156

== ENCOUNTER 2023-12-20 14:08 | Outpatient (CLI) | payer MEDICARE, SELFPAY ==
[2023-12-20 14:44] LABS: Immature Granulocyte Absolute 0.04 K/mm3 (0.00-0.031); Immature Granulocyte Percent A 0.5 % (0-0.5); Lymphocytes Absolute Auto 1.77 K/mm3 (0.9-3.2); Mean Corpuscular Hemoglobin 28.4 pg (26-34); Mean Corpuscular Volume 91.9 fl (80-100); Monocytes Absolute Auto 0.8 K/mm3 (0.1-0.6); Monocytes Percent Auto 10.7 % (2.6-8.5); Neutrophils Absolute Auto 4.8 K/mm3 (1.3-6.7); Neutrophils Percent Auto 64.8 % (45.5-73.1); Platelet Count Result 248 k/mm3 (150-375); Red Blood Count 4.57 M/mm3 (4.2-5.4); Red Cell Distribution Width 13.1 % (11.5-14.5); White Blood Count 7.4 K/mm3 (4.5-10.0)
[2023-12-20 20:33] LABS: Uric Acid 11.7 mg/dL (2.5-7.5)
[2023-12-20 21:40] LABS: Folic Acid 7.8 ng/mL (2.76->20)
== END 2023-12-20 14:09 | disposition home or self-care (01) ==
PROVIDERS: PCP Family Medicine; Visit Provider Family Medicine
DX: Z01.419 Encounter for gynecological examination (general) (routine) without abnormal findings (principal); E78.5 Hyperlipidemia, unspecified; I12.9 Hypertensive chronic kidney disease with stage 1 through stage 4 chronic kidney disease, or unspecified chronic kidney disease; N18.32 Chronic kidney disease, stage 3b; M10.9 Gout, unspecified
CPT/HCPCS: 36415; 82607; 82746; 84443; 84550; 85025

== ENCOUNTER 2023-12-21 08:51 | Outpatient (CLI) | payer MEDICARE, SELFPAY ==
[2023-12-21 09:36] LABS: Cholesterol 179 mg/dL (0-200); HDL Direct 35 mg/dL; Triglycerides 284 mg/dL (<150)
[2023-12-21 09:47] LABS: LDL Cholesterol Direct 83 mg/dL
== END 2023-12-21 08:52 | disposition home or self-care (01) ==
PROVIDERS: PCP Family Medicine; Visit Provider Physician Assistant Medical
DX: E78.5 Hyperlipidemia, unspecified (principal)
CPT/HCPCS: 36415; 80061

== ENCOUNTER 2024-02-01 15:09 | Emergency (ER) | payer MEDICARE, SELFPAY ==
[2024-02-01] VITALS (7 sets, daily range): BP systolic 112–156; BP diastolic 55–88; PULSE 59–82; RESP 16–18; TEMP 36.6–36.8; O2SAT 98–100
--- NOTE | ~2024-02-01 | CT_ITS ---
EXAMINATION: CT abdomen pelvis w con DATE: 02/01/2024 17:49 INDICATION: Left lower quadrant abdominal pain. Left flank pain. TECHNIQUE: Computed tomography (CT) of the abdomen and pelvis was performed with 100 mL Omnipaque 350 intravenous contrast. Automated exposure control and iterative reconstruction technique were employe d. The dose-length product was 1027.01 mGy-cm. COMPARISON: CT abdomen and pelvis 06/05/2023 FINDINGS: The visualized portions lung bases demonstrate mild atelectasis. No pleural effusion. Cardi omegaly is noted. There are coronary artery calcifications. No pericardial effusion. The liver and sp alonso are normal. There are changes of cholecystectomy. The pancreas and adrenal glands are normal. Th ere is cortical thinning of the kidneys. There are cysts in the kidneys measuring up to 2.2 cm on the right. There is diverticulosis of the colon without evidence of diverticulitis. There are no dilated loops of bowel. The appendix is normal. There are no pathologically enlarged lymph nodes. There is n o free intraperitoneal fluid. There is a lipoma in the left iliopsoas muscle. There is severe thoraci c spondylosis and moderate lumbar spondylosis. There is a chronic compression fracture of T12. IMPRESSION: 1. No etiology for the patient's symptoms. Reviewed, dictated and finalized at location E.
[2024-02-01 16:55] LABS: Hematocrit 38.5 % (37.0-47.0); Hemoglobin 12.3 g/dL (12.0-15.0); Immature Granulocyte Absolute 0.03 K/mm3 (0.00-0.031); Immature Granulocyte Percent A 0.5 % (0-0.5); Lymphocytes Absolute Auto 1.94 K/mm3 (0.9-3.2); Lymphocytes Percent Auto 32.8 % (18.3-44.2); Mean Corpuscular HGB Conc 31.9 g/dl (32-36); Mean Corpuscular Hemoglobin 28.4 pg (26-34); Mean Corpuscular Volume 88.9 fl (80-100); Mean Platelet Volume 10.5 fl (7.4-10.4); Monocytes Absolute Auto 0.8 K/mm3 (0.1-0.6); Monocytes Percent Auto 12.8 % (2.6-8.5); Neutrophils Absolute Auto 3.2 K/mm3 (1.3-6.7); Neutrophils Percent Auto 53.9 % (45.5-73.1); Platelet Count Result 233 k/mm3 (150-375); Red Blood Count 4.33 M/mm3 (4.2-5.4); Red Cell Distribution Width 13.5 % (11.5-14.5); White Blood Count 5.9 K/mm3 (4.5-10.0)
[2024-02-01 17:06] LABS: Alanine Aminotransferase 17 U/L (6-35); Albumin Level 4.3 g/dL (3.5-5.1); Alkaline Phosphatase 60 U/L (38-126); Anion Gap 6 mmol/L (4-12); Aspartate Amino Transferase 29 U/L (14-36); Bilirubin,Total 0.3 mg/dL (0.2-1.3); Blood Urea Nitrogen 30 mg/dL (7-17); Calcium 8.8 mg/dL (8.4-10.2); Carbon Dioxide 24 mmol/L (22-30); Chloride 108 mmol/L (98-107); Estimated CRCL calculation 27 ml/min; Estimated Glomerular Filt Rate 32; Glucose 121 mg/dL (65-110); Potassium 4.1 mmol/L (3.4-5.0); Sodium 138 mmol/L (137-145)
[2024-02-01 17:25] LABS: Appearance Urine Clear (Clear); Bacteria Urine None Seen /hpf; Bilirubin Urine Negative (Negative); Blood Urine Negative (Negative); Color Urine Yellow (Yellow); Glucose Urine UA Negative (Negative); Ketones Urine Negative (Negative); Leukocyte Esterase Ur Negative LEU/UL (Negative); Need Manual Microscopic Reviewed; Nitrate Urine Negative (Negative); Non Pathogenic Casts 0-2; Protein Urine 1+ mg/dL (Negative); RBC Urine 0-2 /hpf (0-2); Squamous Epithelial Cell Urine None Seen /hpf (Few); Urobilinogen Urine 0.2 mg/dL (<2.0); WBC Urine 0-5 /hpf (0-3)
[2024-02-01 17:39] LABS: Add Urine Microscopic? YES
--- NOTE | 2024-02-01 18:06 | ED.ABDPAIN ---
HPI - Abdominal Pain General Chief Complaint: Abdominal Pain Stated Complaint: LLQ/flank pain Time Seen by Provider: 02/01/24 16:27 History of Present Illness HPI narrative: 68-year-old female presents to the emergency department for evaluation of intermittent left flank pain. Patient states the pain has been bothering her for a few months but did acutely worsened when she was lying on her side today. Patient denies any falls or injuries. Patient denies any associated nausea vomiting or diarrhea. Patient denies any prior history of kidney stones. Related Data Home Medications Medication Instructions Recorded Confirmed cetirizine 10 mg tablet (Zyrtec) 10 mg PO DAILY PRN Allergy Symptoms 05/04/21 12/20/23 Allergies Allergy/AdvReac Type Severity Reaction Status Date / Time No Known Allergies Allergy Verified 12/20/23 13:26 Review of Systems Review of Systems: All systems reviewed & are unremarkable except as noted in HPI and below PMFSH Past Medical History Medical History (Updated 02/01/24 @ 18:16 by Jaylan Garcia MD) Acid reflux Allergic rhinitis Chronic kidney disease, stage III (moderate) Compressed vertebrae Oct 19 from fall COVID-19 vaccine series completed (~07/2020) Gout History of vaginal delivery x 2 Hy kid NOS w cr kid I-IV Hypertension IFG (impaired fasting glucose) Lupus Surgical History Surgical History History of bunionectomy of both great toes History of cholecystectomy History of repair of right rotator cuff History of surgical removal of meniscus of knee History of total hysterectomy (~1995) due to fibroids and dysfunctional uterine bleeding History of tubal ligation Family History Family History Father , at age 82 Diabetes mellitus, Onset Age: 82 Hypertension Dementia Mother , at age 70 Hypertension Lung cancer Sibling Family history of blood dyscrasia Lung cancer her youngest sister of lung cancer. Social History Social History Social History: she lives in [place] with her of 40 years. They have 1 daughter and 1 son. 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 She is a lifelong nonsmoker. She very rarely drinks a small amount of alcohol. She denies any illicit substance use. Primary care physician: Dr. Pola Navarro Code status: Full code Surrogate decision maker: Smoking status: Never smoker Second hand tobacco smoke exposure: No Alcohol intake: former Substance use: never Substance use type: does not use Do You Feel Safe in your Home?: Yes Lack of Transportation: No Lack of Food: Never True Current Housing: I Have Housing Concerned About Future Housing: No Difficulty Paying Gas/Electric Bills: No Difficulty Paying for Meds: No Currently Unemployed: No Education: High School Diploma/GED Difficulty w/ Childcare or Family Care: No Living arrangements: with family Occupation/Education: occupation Gender identity (if verbalized by the patient): Female Sexual Orientation (if Verbalized by the Patient): Straight or Heterosexual Spiritual care concerns: No Exam Narrative: APPEARANCE: Well appearing, no pain, no distress, well-nourished. HEAD: normocephalic, atraumatic. EYES: PERRLA/EOMI, conjunctivae clear. NOSE: Normal no drainage EARS:TMS clear with good light reflex. THROAT: Pharynx clear, no exudate. NECK: Supple. No adenopathy, no masses. RESPIRATORY: Airway patent, respirations nonlabored. Clear to auscultation bilaterally, no rales, rhonchi, wheezing. CARDIOVASCULAR: Regular rate and rhythm without murmurs rubs or gallops. ABDOMINAL: left CVA and flank tenderness MUSCULOSKELETAL: Left CVA tenderness to palpation NEURO: Alert. Cranial nerves II through XII intact. Good ga
[2024-02-01] MEDS: fentaNYL CITRATE INJ (*CRX) 100 MCG/2 ML VIAL 50 MCG IV PUSH (18:36)
== END 2024-02-01 18:49 | disposition home or self-care (01) ==
PROVIDERS: Preventive Medicine Aerospace Medicine; Emergency Provider Emergency Medicine; PCP Family Medicine
DX: R10.9 Unspecified abdominal pain (principal); K21.9 Gastro-esophageal reflux disease without esophagitis; I12.9 Hypertensive chronic kidney disease with stage 1 through stage 4 chronic kidney disease, or unspecified chronic kidney disease; N18.30 Chronic kidney disease, stage 3 unspecified; M10.9 Gout, unspecified; M32.9 Systemic lupus erythematosus, unspecified; Z90.49 Acquired absence of other specified parts of digestive tract; Z90.710 Acquired absence of both cervix and uterus
CPT/HCPCS: 36415; 74177; 80053; 81001; 85025; 96374; 99284; J3010; Q9967

== ENCOUNTER 2024-02-13 16:32 | Outpatient (CLI) | payer MEDICARE, SELFPAY ==
--- NOTE | ~2024-02-13 | US_ITS ---
Renal-Bladder ultrasound Clinical History: Left flank pain Technique: Real-time sonographic imaging of the kidneys and urinary bladder was performed. Findings: The right kidney measures 8.5 cm in length and the left kidney measures 8.8 cm. There is no hydronephrosis or renal calculus identified. Renal cortical echogenicity is probably mildly increase d. Small left renal cyst noted. The urinary bladder is moderately distended at the time of this exam. No intraluminal echoes are iden tified. No abnormal wall thickening is seen. Impression: Mildly echogenic kidneys suggest chronic medical renal disease. No hydronephrosis. Reviewed, dictated and finalized at location M. Impression: Mildly echogenic kidneys suggest chronic medical renal disease. No hydronephros is.
== END 2024-02-13 16:33 | disposition home or self-care (01) ==
LOC: ANHIMG 16:33
PROVIDERS: PCP Family Medicine; Visit Provider Internal Medicine Nephrology
DX: R94.4 Abnormal results of kidney function studies (principal)
CPT/HCPCS: 76775

== ENCOUNTER 2024-04-22 07:34 | Emergency (ER) | payer MEDICARE, SELFPAY ==
--- NOTE | ~2024-04-22 | US_ITS ---
EXAMINATION: US venous doppler [facility] DATE: 04/22/2024 10:28 INDICATION: Left lower limb pain. TECHNIQUE: Grayscale ultrasound images without and with compression and Doppler ultrasound images of the left lower extremity veins were obtained. COMPARISON: None. FINDINGS: The visualized portions of left common femoral vein, profunda (deep) femoral vein, femoral vein, popl iteal vein, peroneal veins, posterior tibial veins, and greater saphenous vein outflow are patent. Th ere is a large Ma's cyst. IMPRESSION: 1. No deep venous thrombosis. 2. Large Ma's cyst. Reviewed, dictated and finalized at location A.
--- NOTE | ~2024-04-22 | XR_ITS ---
EXAMINATION: XR ankle LT min 3V DATE: 04/22/2024 08:20 INDICATION: Left ankle pain. TECHNIQUE: 4 views of left ankle were obtained. COMPARISON: None. FINDINGS: Bone alignment is normal. No fracture. There is mild osteoarthritis of the ankle joint and some of the midfoot joints. There are enthesophytes at the posterior and plantar aspects of calcaneal tuberosity. Ankle soft tissue swelling is noted. IMPRESSION: 1. Mild polyarticular osteoarthritis. Reviewed, dictated and finalized at location A.
--- NOTE | ~2024-04-22 | XR_ITS ---
EXAMINATION: XR knee LT min 4V DATE: 04/22/2024 08:20 INDICATION: Left knee pain. TECHNIQUE: 4 views of left knee were obtained. COMPARISON: Left knee radiographs 12/11/2008 FINDINGS: Bone alignment is normal. No fracture. There is severe osteoarthritis of lateral compartmen t, moderate osteoarthritis of medial compartment, and mild osteoarthritis of patellofemoral compartme nt. There is a moderate-sized knee joint effusion. IMPRESSION: 1. Severe left knee osteoarthritis. 2. Moderate-sized knee joint effusion. Reviewed, dictated and finalized at location A.
[2024-04-22 07:38] VITALS: BP 166/86; PULSE 74; RESP 17; TEMP 36.7; O2SAT 99
--- NOTE | 2024-04-22 07:59 | ED.GENADULT ---
HPI - General Adult General Chief complaint: Extremity Injury, Lower Stated complaint: Left knee pain Time Seen by Provider: 04/22/24 07:46 History of Present Illness HPI narrative: 68-year-old female presenting to the emergency department for evaluation for acute on chronic left leg pain. Patient does have history of bilateral knee pain and bilateral Achilles pain. Patient is scheduled to have her right knee replaced and has potentially been favoring her right knee and has had increased pain in the left leg. Patient states pain to the knee posterior calf and ankle. Any specific incident of falls or injuries. Related Data Home Medications Medication Instructions Recorded Confirmed cetirizine 10 mg tablet (Zyrtec) 10 mg PO DAILY PRN Allergy Symptoms 05/04/21 02/05/24 Allergies Allergy/AdvReac Type Severity Reaction Status Date / Time No Known Allergies Allergy Verified 04/22/24 07:43 Review of Systems Review of Systems: All systems reviewed & are unremarkable except as noted in HPI and below PMFSH Past Medical History Medical History Acid reflux Allergic rhinitis Chronic kidney disease, stage III (moderate) Compressed vertebrae Oct 19 from fall COVID-19 vaccine series completed (~07/2020) Gout History of vaginal delivery x 2 Hy kid NOS w cr kid I-IV Hypertension IFG (impaired fasting glucose) Lupus Surgical History Surgical History History of bunionectomy of both great toes History of cholecystectomy History of repair of right rotator cuff History of surgical removal of meniscus of knee History of total hysterectomy (~1995) due to fibroids and dysfunctional uterine bleeding History of tubal ligation Family History Family History Father , at age 82 Diabetes mellitus, Onset Age: 82 Hypertension Dementia Mother , at age 70 Hypertension Lung cancer Sibling Family history of blood dyscrasia Lung cancer her youngest sister of lung cancer. Social History Social History Social History: she lives in [place] with her of 40 years. They have 1 daughter and 1 son. 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 She is a lifelong nonsmoker. She very rarely drinks a small amount of alcohol. She denies any illicit substance use. Primary care physician: Dr. Pola Navarro Code status: Full code Surrogate decision maker: Smoking status: Never smoker Second hand tobacco smoke exposure: No Alcohol intake: former Substance use: never Substance use type: does not use Do You Feel Safe in your Home?: Yes Lack of Transportation: No Lack of Food: Never True Current Housing: I Have Housing Concerned About Future Housing: No Difficulty Paying Gas/Electric Bills: No Difficulty Paying for Meds: No Currently Unemployed: No Education: High School Diploma/GED Difficulty w/ Childcare or Family Care: No Living arrangements: with family Occupation/Education: occupation Gender identity (if verbalized by the patient): Female Sexual Orientation (if Verbalized by the Patient): Straight or Heterosexual Spiritual care concerns: No Exam Narrative: APPEARANCE: Well appearing, no pain, no distress, well-nourished. HEAD: normocephalic, atraumatic. EYES: PERRLA/EOMI, conjunctivae clear. NOSE: Normal no drainage EARS:TMS clear with good light reflex. THROAT: Pharynx clear, no exudate. NECK: Supple. No adenopathy, no masses. RESPIRATORY: Airway patent, respirations nonlabored. Clear to auscultation bilaterally, no rales, rhonchi, wheezing. CARDIOVASCULAR: Regular rate and rhythm without murmurs rubs or gallops. ABDOMINAL: Soft, nontender, nondistended, normal bowel sounds MUSCULOSKELETAL: No left knee erythema, no ankle d
[2024-04-22] MEDS: HYDROcodone/acetaminophen (*CRX) 5-325 MG TABLET 1 TAB PO (08:05)
[2024-04-22 10:24] VITALS: BP 140/88; PULSE 64; RESP 16; O2SAT 97
== END 2024-04-22 12:37 | disposition home or self-care (01) ==
PROVIDERS: Emergency Provider Emergency Medicine; PCP Family Medicine
DX: M25.562 Pain in left knee (principal); M17.9 Osteoarthritis of knee, unspecified; M79.605 Pain in left leg; I12.9 Hypertensive chronic kidney disease with stage 1 through stage 4 chronic kidney disease, or unspecified chronic kidney disease; N18.30 Chronic kidney disease, stage 3 unspecified; M32.9 Systemic lupus erythematosus, unspecified
CPT/HCPCS: 73564; 73610; 93971; 99284; A9270

== ENCOUNTER 2024-04-24 15:17 | Outpatient (CLI) | payer MEDICARE, SELFPAY ==
[2024-04-24 16:10] LABS: Albumin Level 4.5 g/dL (3.5-5.1); Anion Gap 12 mmol/L (4-12); Blood Urea Nitrogen 30 mg/dL (7-17); Calcium 9.3 mg/dL (8.4-10.2); Carbon Dioxide 27 mmol/L (22-30); Chloride 98 mmol/L (98-107); Estimated Glomerular Filt Rate 24; Glucose 85 mg/dL (65-110); Phosphorus 3.7 mg/dL (2.5-4.5); Potassium 4.2 mmol/L (3.4-5.0); Sodium 137 mmol/L (137-145)
[2024-04-24 16:20] LABS: Parathyroid Intact 138.4 pg/mL (7.5-53.5)
[2024-04-24 16:26] LABS: Vitamin D 25 Hydroxy 35.8 ng/mL
[2024-04-24 16:46] LABS: Creatinine Urine 295.6 mg/dL; Total Protein Urine Random 104 mg/dL; Ur Ttl Prot Creatinine Ratio 0.35 mg/mg (0-0.20)
== END 2024-04-24 15:18 | disposition home or self-care (01) ==
PROVIDERS: PCP Family Medicine; Visit Provider Internal Medicine Nephrology
DX: E55.9 Vitamin D deficiency, unspecified (principal); I12.9 Hypertensive chronic kidney disease with stage 1 through stage 4 chronic kidney disease, or unspecified chronic kidney disease; N18.32 Chronic kidney disease, stage 3b; N25.81 Secondary hyperparathyroidism of renal origin
CPT/HCPCS: 36415; 80069; 82306; 82570; 83970; 84156

== ENCOUNTER 2024-05-01 12:55 | Outpatient (CLI) | payer MEDICARE, SELFPAY ==
--- NOTE | ~2024-05-01 | MMUS_ITS ---
EXAMINATION: US breast RT limited, MM diagnostic juan RT w cleo HISTORY: Follow-up right breast mass TECHNIQUE: Additional 3-D tomosynthesis images of the right breast were performed and synthetic 2-D i mages were generated. CAD analysis was submitted and interpreted. High resolution Limited right breas t ultrasound was performed. COMPARISON: Comparison to multiple prior studies sequentially, with oldest reviewed study dated 10/03. BREAST PARENCHYMAL COMPOSITION: Not dense: There are scattered areas of fibroglandular density. FINDINGS: MAMMOGRAPHIC FINDINGS: There is a developing focal asymmetry in the upper outer quadrant of the right breast posteriorly wit h slightly irregular margins. There are no suspicious calcifications or architectural distortion. ULTRASOUND: Limited right breast ultrasound: There is a new mass at 10:00, 10 cm from the nipple which is antipar allel configuration measuring 6 mm maximum dimension. No internal vascularity. There is posterior att enuation. The margins are slightly irregular. IMPRESSION: 1. Irregular shaped 6 mm antiparallel mass at 10:00, 10 cm from the nipple, not definitely seen on pr ior examination. 2. Ultrasound-guided right breast biopsy recommended. BI-RADS category 4, suspicious findings. Reviewed, dictated and finalized at location B. IMPRESSION: 1. Irregular shaped 6 mm antiparallel mass at 10:00, 10 cm from the nipple, not definitely seen on prior examination. 2. Ultrasound-guided right breast biopsy recommended. BI-RADS category 4, suspicious findings.
== END 2024-05-01 12:56 | disposition home or self-care (01) ==
PROVIDERS: PCP Family Medicine; Visit Provider Family Medicine
DX: R92.8 Other abnormal and inconclusive findings on diagnostic imaging of breast (principal)
CPT/HCPCS: 76642; 77061; 77065; G0279

== ENCOUNTER 2024-05-28 16:53 | Outpatient (CLI) | payer MEDICARE, SELFPAY ==
[2024-05-28 18:00] LABS: Add Urine Microscopic? YES; Appearance Urine Clear (Clear); Bacteria Urine None Seen /hpf; Bilirubin Urine Negative (Negative); Blood Urine Negative (Negative); Color Urine Yellow (Yellow); Glucose Urine UA Negative (Negative); Ketones Urine Negative (Negative); Leukocyte Esterase Ur Negative LEU/UL (Negative); Nitrate Urine Negative (Negative); Non Pathogenic Casts 0-2; Protein Urine 2+ mg/dL (Negative); RBC Urine 0-2 /hpf (0-2); Specific Grav Ur 1.008 (1.001-1.035); Squamous Epithelial Cell Urine None Seen /hpf (Few); Urobilinogen Urine 0.2 mg/dL (<2.0); WBC Urine 0-5 /hpf (0-3)
[2024-05-28 18:05] LABS: Albumin Level 4.4 g/dL (3.5-5.1); Anion Gap 12 mmol/L (4-12); Blood Urea Nitrogen 22 mg/dL (7-17); Calcium 9.3 mg/dL (8.4-10.2); Carbon Dioxide 27 mmol/L (22-30); Chloride 97 mmol/L (98-107); Estimated Glomerular Filt Rate 30; Glucose 95 mg/dL (65-110); Phosphorus 3.3 mg/dL (2.5-4.5); Potassium 3.9 mmol/L (3.4-5.0); Sodium 136 mmol/L (137-145)
== END 2024-05-28 16:54 | disposition home or self-care (01) ==
LOC: ANHLAB 16:57
PROVIDERS: PCP Family Medicine; Visit Provider Internal Medicine Nephrology
DX: N18.4 Chronic kidney disease, stage 4 (severe) (principal); R30.0 Dysuria; R39.9 Unspecified symptoms and signs involving the genitourinary system
CPT/HCPCS: 36415; 80069; 81001

== ENCOUNTER 2024-06-03 13:58 | Outpatient (CLI) | payer MEDICARE, SELFPAY ==
--- NOTE | ~2024-06-03 | XR_ITS ---
EXAMINATION: XR ankle RT 2V, XR ankle LT 2V DATE: 06/03/2024 14:26 INDICATION: Bilateral ankle pain post fall TECHNIQUE: 1. Anteroposterior and lateral views of the right ankle were obtained. 2. Anteroposterior and lateral views of the left ankle were obtained. COMPARISON: None. FINDINGS: There is normal alignment at the bilateral ankles. No fractures identified. Moderate sized bilateral Achilles and plantar calcaneal spurs with additional small enthesopathic ossicles at the bilateral di stal Achilles tendons and proximal plantar aponeurosis. Additional small enthesophytes at the bilater al medial and lateral malleoli. Postoperative changes of prior likely bilateral hallux valgus correct ion second bunionectomies with screw fixations at the necks of the bilateral first metatarsals. There is soft tissue swelling about the right lateral malleolus. IMPRESSION: 1. No acute osseous abnormality at either ankle. 2. Prominent enthesopathic changes at the bilateral ankles and hindfeet. 3. Postoperative changes consistent with bilateral bunionectomies and likely hallux valgus correction s. Correlate with surgical history. Reviewed, dictated and finalized at location B. IMPRESSION: 1. No acute osseous abnormality at either ankle. 2. Prominent enthesopathic changes at the bilateral ankles and hindfeet. 3. Postoperative changes consistent with bilateral bunionectomies and likely vazquez llux valgus corrections. Correlate with surgical history.
== END 2024-06-03 13:59 | disposition home or self-care (01) ==
PROVIDERS: PCP Family Medicine; Visit Provider Family Medicine
DX: M25.572 Pain in left ankle and joints of left foot (principal); M25.571 Pain in right ankle and joints of right foot
CPT/HCPCS: 73600

== ENCOUNTER 2024-07-15 12:59 | Emergency (ER) | payer MEDICARE, SELFPAY ==
--- NOTE | ~2024-07-15 | US_ITS ---
EXAMINATION: US venous doppler LE RT DATE: 07/15/2024 14:00 INDICATION: Right calf pain. TECHNIQUE: Grayscale ultrasound images without and with compression and Doppler ultrasound images of the right lower extremity veins were obtained. COMPARISON: None. FINDINGS: The visualized portions of right common femoral vein, profunda (deep) femoral vein, femoral vein, pop liteal vein, peroneal veins, posterior tibial veins, and greater saphenous vein outflow are patent. IMPRESSION: 1. No deep venous thrombosis. Reviewed, dictated and finalized at location B.
--- NOTE | 2024-07-15 13:06 | ED.EXTPRO ---
HPI - Extremity Problem General Chief complaint: Extremity Problem,Nontraumatic <Stacy Gray APRN - Last Filed: 07/15/24 13:10> Stated complaint: R foot pain <Stacy Gray APRN - Last Filed: 07/15/24 13:10> Time Seen by Provider: 07/15/24 13:00 <Stacy Gray APRN - Last Filed: 07/15/24 13:10> Focused HPI: patient is a 68-year-old female who presents to the ER with complaints right lower extremity pain started yesterday. She reports she had left knee replacement on June 12. Patient reports she had a follow-up appointment last week and everything was going well. She was able to walk without assistance at that time. Patient reports extreme pain in the back of her right lower leg, specifically in the R calf. She endorses pain with ambulation. Patient denies shortness of breath or chest pain. She denies any history of blood clots. GENERAL: Well-appearing, well-nourished, and in no acute distress. HEAD: Normocephalic, atraumatic. CHEST: Clear to auscultation. ?No respiratory distress. HEART: Regular rate and rhythm.? NEURO: ?Alert and oriented x3. Patient screened in triage and initial orders placed.? ?Additional care and disposition to be based upon?diagnostic testing and treatment. <Stacy Gray APRN - Last Filed: 07/15/24 13:10> History of Present Illness HPI Narrative: Agree with HPI. Patient has long history of gout. She has tried her colchicine at home. <Rachid Thomas MD - Last Filed: 07/15/24 15:24> Related Data Home medications: Home Medications Medication Instructions Recorded Confirmed cetirizine 10 mg tablet (Zyrtec) 10 mg PO DAILY PRN Allergy Symptoms 05/04/21 04/30/24 <Stacy Gray APRN - Last Filed: 07/15/24 13:10> Allergies/Adverse reactions: Allergies Allergy/AdvReac Type Severity Reaction Status Date / Time No Known Allergies Allergy Verified 04/30/24 16:38 <Stacy Gray APRN - Last Filed: 07/15/24 13:10> Review of Systems Review of Systems: All systems reviewed & are unremarkable except as noted in HPI and below <Rachid Thomas MD - Last Filed: 07/15/24 15:24> Constitutional: Constitutional: Reports no additional constitutional complaints <Rachid Thomas MD - Last Filed: 07/15/24 15:24> Cardiovascular: Cardiovascular: Reports no additional cardiovascular complaints <Rachid Thomas MD - Last Filed: 07/15/24 15:24> Respiratory: Respiratory: Reports no additional respiratory complaints <Rachid Thomas MD - Last Filed: 07/15/24 15:24> Musculoskeletal: Musculoskeletal: Denies back pain, Reports arthralgias and Denies joint swelling <Rachid Thomas MD - Last Filed: 07/15/24 15:24> PMFSH Past Medical History Medical History: Medical History Acid reflux Allergic rhinitis Chronic kidney disease, stage III (moderate) Compressed vertebrae Oct 19 from fall COVID-19 vaccine series completed (~07/2020) Gout History of vaginal delivery x 2 Hy kid NOS w cr kid I-IV Hypertension IFG (impaired fasting glucose) Lupus <Stacy Gray APRN - Last Filed: 07/15/24 13:10> Surgical History Surgical History: Surgical History History of bunionectomy of both great toes History of cholecystectomy History of repair of right rotator cuff History of surgical removal of meniscus of knee History of total hysterectomy (~1995) due to fibroids and dysfunctional uterine bleeding History of tubal ligation <Stacy Gray APRN - Last Filed: 07/15/24 13:10> Family History Family History: Family History Father , at age 82 Diabetes mellitus, Onset Age: 82 Hypertension Dementia Mother , at age 70 Hypertension Lung cancer Sibling Family history of blood dyscrasia Lung cancer her youngest sister of lung cancer. <Stacy Gray APRN - Last Filed: 07/15/24 13:10> Social History Social History: Social History Social History: she lives in [place] with her of 40 years. They have 1 daughter and 1 son. She is employed as a [employer]. She is a lifelong nonsmoker. She very rarely drinks a small amount of alcohol. She denies any illicit substance use. Primary care physician: Dr. Pola Navarro Code status: Full code Surrogate decision maker: Smoking status: Never smoker Second hand tobacco smoke exposure: No Alcohol intake: former Substance use: never Substance use type: does not use Do You Feel Safe in your Home?: Yes Lack of Transportation: No Lack of Food: Never True Current Housing: I Have Housing Concerned About Future Housing: No Difficulty Paying Gas/Electric Bills: No Difficulty Paying for Meds: No Currently Unemployed: No Education: High School Diploma/GED Difficulty w/ Childcare or Family Care: No Living arrangements: with family Occupation/Education: occupation Gender identity (if verbalized by the patient): Female Sexual Orientation (if Verbalized by the Patient): Straight or Heterosexual Spiritual care concerns: No <Stacy Gray APRN - Last Filed: 07/15/24 13:10> Exam Narrative: GENERAL: Well-appearing, well-nourished, and in no acute distress. HEAD: Normocephalic, atraumatic. ENT: Mucous membranes moist. HEART: Regular rate and rhythm. Normal peripheral pulses. EXTREMITIES: Normal range of motion. 1+ edema. Achilles intact bilaterally. Mild tenderness over the ankle bilaterally. No erythema or effusion. SKIN: Warm, dry, no rash. NEURO: Alert and oriented x3. PSYCH: Normal mood and affect. <Rachid Thomas MD - Last Filed: 07/15/24 15:24> Course Course Emergency Course: CBC and CMP within acceptable limits. Patient with chronic creatinine elevation. DVT study negative. Patient felt to have fracture. May be a flare of her gout. She also reports she felt a pop last night in the back of her heel a, the Achilles is intact, she may just have mild ankle strain as well. Recommend RICE. Will give tylenol for breakthrough pain. <Rachid Thomas MD - Last Filed: 07/15/24 15:24> Vital Signs Vital signs: Vital Signs Temperature 97.4 F L 07/15/24 13:08 Pulse Rate 79 07/15/24 13:08 Respiratory Rate 20 07/15/24 13:08 Blood Pressure 126/86 07/15/24 13:08 Pulse Oximetry 100 07/15/24 13:08 Oxygen Delivery Room Air 07/15/24 13:08 Temperature 97.4 F L 07/15/24 13:08 Pulse Rate 79 07/15/24 13:08 Respiratory Rate 20 07/15/24 13:08 Blood Pressure 126/86 07/15/24 13:08 Pulse Oximetry 100 07/15/24 13:08 Oxygen Delivery Room Air 07/15/24 13:08 <Stacy Gray, SUCTION OPERATOR - Last Filed: 07/15/24 13:10> Vital Signs Temperature 97.4 F L 07/15/24 13:08 Pulse Rate 79 07/15/24 13:08 Respiratory Rate 20 07/15/24 13:08 Blood Pressure 126/86 07/15/24 13:08 Pulse Oximetry 100 07/15/24 13:08 Oxygen Delivery Room Air 07/15/24 13:08 Temperature 97.4 F L 07/15/24 13:08 Pulse Rate 79 07/15/24 13:08 Respiratory Rate 20 07/15/24 13:08 Blood Pressure 126/86 07/15/24 13:08 Pulse Oximetry 100 07/15/24 13:08 Oxygen Delivery Room Air 07/15/24 13:08 <Rachid Thomas MD - Last Filed: 07/15/24 15:24> MDM - Extremity (Nontraumatic) Lab Data Result diagrams: 07/15/24 13:19 07/15/24 13:19 <Stacy Gray, SUCTION OPERATOR - Last Filed: 07/15/24 13:10> Labs: Lab Results 07/15/24 07/15/24 07/15/24 Range/Units 13:19 13:19 13:19 WBC 7.1 (4.5-10.0) K/mm3 RBC 4.13 L (4.2-5.4) M/mm3 Hgb 12.0 (12.0-15.0) g/dL Hct 37.7 (37.0-47.0) % MCV 91.3 (80-100) fl MCH 29.1 (26-34) pg MCHC 31.8 L (32-36) g/dl RDW 13.4 (11.5-14.5) % Plt Count 369 D (150-375) k/mm3 MPV 9.7 (7.4-10.4) fl Immature Gran % (Auto) 0.4 (0-0.5) % Neut % (Auto) 72.5 (45.5-73.1) % Lymph % (Auto) 20.4 (18.3-44.2) % [place] % (Auto) 6.5 (2.6-8.5) % Eos % (Auto) 0.1 (0-4.4) % Baso % (Auto) 0.1 L (0.2-1.2) % Lymph # (Auto) 1.45 (0.9-3.2) K/mm3 [place] # (Auto) 0.5 (0.1-0.6) K/mm3 Eos # (Auto) 0.0 (0-0.3) K/mm3 Baso # (Auto) 0.0 (0.0-0.1) K/mm3 Abs Immat Gran (auto) 0.03 (0.00-0.031) K/mm3 Absolute Neuts (auto) 5.2 (1.3-6.7) K/mm3 Absolute Nucleated RBC 0.000 (0.0-0.012) K/mm3 Nucleated RBC % 0.0 (0.0-0.2) % PT 14.5 Cancelled (11.1-14.7) Seconds INR 1.1 Cancelled APTT 29.8 (22.3-36.8) Seconds D-Dimer (<0.48) ug/mL Sodium (137-145) mmol/L Potassium (3.4-5.0) mmol/L Chloride (98-107) mmol/L Carbon Dioxide (22-30) mmol/L Anion Gap (4-12) mmol/L BUN (7-17) mg/dL Creatinine (0.7-1.0) mg/dL Estim Creat Clear Calc ml/min Estimated GFR (59 - ) Glucose (65-110) mg/dL Calcium (8.4-10.2) mg/dL 07/15/24 Range/Units 13:19 WBC (4.5-10.0) K/mm3 RBC (4.2-5.4) M/mm3 Hgb (12.0-15.0) g/dL Hct (37.0-47.0) % MCV (80-100) fl MCH (26-34) pg MCHC (32-36) g/dl RDW (11.5-14.5) % Plt Count (150-375) k/mm3 MPV (7.4-10.4) fl Immature Gran % (Auto) (0-0.5) % Neut % (Auto) (45.5-73.1) % Lymph % (Auto) (18.3-44.2) % [place] % (Auto) (2.6-8.5) % Eos % (Auto) (0-4.4) % Baso % (Auto) (0.2-1.2) % Lymph # (Auto) (0.9-3.2) K/mm3 [place] # (Auto) (0.1-0.6) K/mm3 Eos # (Auto) (0-0.3) K/mm3 Baso # (Auto) (0.0-0.1) K/mm3 Abs Immat Gran (auto) (0.00-0.031) K/mm3 Absolute Neuts (auto) (1.3-6.7) K/mm3 Absolute Nucleated RBC (0.0-0.012) K/mm3 Nucleated RBC % (0.0-0.2) % PT (11.1-14.7) Seconds INR APTT Cancelled (22.3-36.8) Seconds D-Dimer 2.32 H (<0.48) ug/mL Sodium 140 (137-145) mmol/L Potassium 4.2 (3.4-5.0) mmol/L Chloride 103 (98-107) mmol/L Carbon Dioxide 23 (22-30) mmol/L Anion Gap 14 H (4-12) mmol/L BUN 34 H D (7-17) mg/dL Creatinine 2.30 H (0.7-1.0) mg/dL Estim Creat Clear Calc 23 ml/min Estimated GFR 25 L (59 - ) Glucose 158 H (65-110) mg/dL Calcium 9.7 (8.4-10.2) mg/dL <Stacy L. Isaac, SUCTION OPERATOR - Last Filed: 07/15/24 13:10> Lab Results 07/15/24 07/15/24 07/15/24 Range/Units 13:19 13:19 13:19 WBC 7.1 (4.5-10.0) K/mm3 RBC 4.13 L (4.2-5.4) M/mm3 Hgb 12.0 (12.0-15.0) g/dL Hct 37.7 (37.0-47.0) % MCV 91.3 (80-100) fl MCH 29.1 (26-34) pg MCHC 31.8 L (32-36) g/dl RDW 13.4 (11.5-14.5) % Plt Count 369 D (150-375) k/mm3 MPV 9.7 (7.4-10.4) fl Immature Gran % (Auto) 0.4 (0-0.5) % Neut % (Auto) 72.5 (45.5-73.1) % Lymph % (Auto) 20.4 (18.3-44.2) % [place] % (Auto) 6.5 (2.6-8.5) % Eos % (Auto) 0.1 (0-4.4) % Baso % (Auto) 0.1 L (0.2-1.2) % Lymph # (Auto) 1.45 (0.9-3.2) K/mm3 [place] # (Auto) 0.5 (0.1-0.6) K/mm3 Eos # (Auto) 0.0 (0-0.3) K/mm3 Baso # (Auto) 0.0 (0.0-0.1) K/mm3 Abs Immat Gran (auto) 0.03 (0.00-0.031) K/mm3 Absolute Neuts (auto) 5.2 (1.3-6.7) K/mm3 Absolute Nucleated RBC 0.000 (0.0-0.012) K/mm3 Nucleated RBC % 0.0 (0.0-0.2) % PT 14.5 Cancelled (11.1-14.7) Seconds INR 1.1 Cancelled APTT 29.8 (22.3-36.8) Seconds D-Dimer (<0.48) ug/mL Sodium (137-145) mmol/L Potassium (3.4-5.0) mmol/L Chloride (98-107) mmol/L Carbon Dioxide (22-30) mmol/L Anion Gap (4-12) mmol/L BUN (7-17) mg/dL Creatinine (0.7-1.0) mg/dL Estim Creat Clear Calc ml/min Estimated GFR (59 - ) Glucose (65-110) mg/dL Calcium (8.4-10.2) mg/dL 07/15/24 Range/Units 13:19 WBC (4.5-10.0) K/mm3 RBC (4.2-5.4) M/mm3 Hgb (12.0-15.0) g/dL Hct (37.0-47.0) % MCV (80-100) fl MCH (26-34) pg MCHC (32-36) g/dl RDW (11.5-14.5) % Plt Count (150-375) k/mm3 MPV (7.4-10.4) fl Immature Gran % (Auto) (0-0.5) % Neut % (Auto) (45.5-73.1) % Lymph % (Auto) (18.3-44.2) % [place] % (Auto) (2.6-8.5) % Eos % (Auto) (0-4.4) % Baso % (Auto) (0.2-1.2) % Lymph # (Auto) (0.9-3.2) K/mm3 [place] # (Auto) (0.1-0.6) K/mm3 Eos # (Auto) (0-0.3) K/mm3 Baso # (Auto) (0.0-0.1) K/mm3 Abs Immat Gran (auto) (0.00-0.031) K/mm3 Absolute Neuts (auto) (1.3-6.7) K/mm3 Absolute Nucleated RBC (0.0-0.012) K/mm3 Nucleated RBC % (0.0-0.2) % PT (11.1-14.7) Seconds INR APTT Cancelled (22.3-36.8) Seconds D-Dimer 2.32 H (<0.48) ug/mL Sodium 140 (137-145) mmol/L Potassium 4.2 (3.4-5.0) mmol/L Chloride 103 (98-107) mmol/L Carbon Dioxide 23 (22-30) mmol/L Anion Gap 14 H (4-12) mmol/L BUN 34 H D (7-17) mg/dL Creatinine 2.30 H (0.7-1.0) mg/dL Estim Creat Clear Calc 23 ml/min Estimated GFR 25 L (59 - ) Glucose 158 H (65-110) mg/dL Calcium 9.7 (8.4-10.2) mg/dL <Rachid Thomas MD - Last Filed: 07/15/24 15:24> Imaging Data Radiologist's impression: ITS Impressions Venous Doppler Study 07/15/24 14:02 IMPRESSION: 1. No deep venous thrombosis. <Rachid Thomas MD - Last Filed: 07/15/24 15:24> Discharge Plan Discharge Clinical Impression: Acute ankle pain <Stacy Gray APRN - Last Filed: 07/15/24 13:10> Patient Disposition: Home, Self-Care <Stacy Gray APRN - Last Filed: 07/15/24 13:10> Condition: Stable <Stacy Gray APRN - Last Filed: 07/15/24 13:10> Instructions: Ankle Sprain (ED) <Stacy Gray APRN - Last Filed: 07/15/24 13:10> Additional Instructions: Return to the ER if you have fever over 101F, you cannot keep down food/water, or you have additional concerns. <Stacy Gray APRN - Last Filed: 07/15/24 13:10> Prescriptions: New hydrocodone-acetaminophen 5-325 mg tablet 1 tablet PO Q6H PRN (Reason: pain) Qty: 12 0RF No Action fluticasone propionate [Flonase Allergy Relief] 50 mcg/actuation spray,suspension 2 spray intranasal DAILY Qty: 16 0RF Rx Instructions: administer into each nostril cetirizine [Zyrtec] 10 mg tablet 10 mg PO DAILY PRN (Reason: Allergy Symptoms) calcitriol 0.25 mcg capsule 0.25 mcg PO 3XW Qty: 12 6RF Rx Instructions: Take on Mondays, Wednesdays, and Fridays hydrocodone-acetaminophen 5-325 mg tablet 1 tablet PO Q8H PRN (Reason: pain) Qty: 21 0RF tramadol 50 mg tablet 50 mg PO Q12H PRN (Reason: SEVERE PAIN) Qty: 10 0RF hydrocodone-acetaminophen 5-325 mg tablet 1 tablet PO Q12H PRN (Reason: pain) Qty: 14 0RF (DME) praveena Misc See Rx Instructions .Route Qty: 1 0RF Rx Instructions: As directed pantoprazole 40 mg tablet,delayed release (DR/EC) 40 mg PO QAM Qty: 90 3RF qrpujawyqw-xmchwajdz-gakblknvo 20-5-12.5 mg tablet 1 tablet PO DAILY Qty: 90 3RF venlafaxine 150 mg capsule,extended release 24hr 150 mg PO DAILY Qty: 90 3RF nebivolol 5 mg tablet 5 mg PO DAILY Qty: 90 3RF colchicine 0.6 mg tablet 0.6 mg PO .COMPLEX Qty: 30 0RF Rx Instructions: 2 po once, then 1 po one hr later, then 1 po qd febuxostat [Uloric] 40 mg tablet 40 mg PO DAILY Qty: 30 5RF <Stacy Gray APRN - Last Filed: 07/15/24 13:10> Follow-up/Referrals: Pola Navarro MD [Primary Care Provider] - 1 Week <Stacy Gray APRN - Last Filed: 07/15/24 13:10>
[2024-07-15 13:08] VITALS: BP 126/86; PULSE 79; RESP 20; TEMP 36.3; O2SAT 100
[2024-07-15 13:27] LABS: Basophils Percent Auto 0.1 % (0.2-1.2); Eosinophils Percent Auto 0.1 % (0-4.4); Hematocrit 37.7 % (37.0-47.0); Immature Granulocyte Absolute 0.03 K/mm3 (0.00-0.031); Immature Granulocyte Percent A 0.4 % (0-0.5); Lymphocytes Absolute Auto 1.45 K/mm3 (0.9-3.2); Lymphocytes Percent Auto 20.4 % (18.3-44.2); Mean Corpuscular HGB Conc 31.8 g/dl (32-36); Mean Corpuscular Hemoglobin 29.1 pg (26-34); Mean Corpuscular Volume 91.3 fl (80-100); Mean Platelet Volume 9.7 fl (7.4-10.4); Monocytes Absolute Auto 0.5 K/mm3 (0.1-0.6); Monocytes Percent Auto 6.5 % (2.6-8.5); Neutrophils Absolute Auto 5.2 K/mm3 (1.3-6.7); Neutrophils Percent Auto 72.5 % (45.5-73.1); Platelet Count Result 369 k/mm3 (150-375); Red Blood Count 4.13 M/mm3 (4.2-5.4); Red Cell Distribution Width 13.4 % (11.5-14.5); White Blood Count 7.1 K/mm3 (4.5-10.0)
[2024-07-15 13:36] LABS: Anion Gap 14 mmol/L (4-12); Blood Urea Nitrogen 34 mg/dL (7-17); Calcium 9.7 mg/dL (8.4-10.2); Carbon Dioxide 23 mmol/L (22-30); Chloride 103 mmol/L (98-107); Estimated CRCL calculation 23 ml/min; Estimated Glomerular Filt Rate 25; Glucose 158 mg/dL (65-110); Potassium 4.2 mmol/L (3.4-5.0); Sodium 140 mmol/L (137-145)
[2024-07-15 13:39] LABS: INR 1.1; Prothrombin Time 14.5 Seconds (11.1-14.7)
[2024-07-15 13:40] LABS: Partial Thromboplastin Time 29.8 Seconds (22.3-36.8)
[2024-07-15 13:43] LABS: D Dimer 2.32 ug/mL (<0.48)
[2024-07-15] MEDS: HYDROcodone/acetaminophen (*CRX) 5-325 MG TABLET 1 TAB PO (14:24)
[2024-07-15 15:35] VITALS: BP 130/80; PULSE 58; RESP 20; O2SAT 99
== END 2024-07-15 15:36 | disposition home or self-care (01) ==
PROVIDERS: Registered Nurse; Emergency Provider Emergency Medicine; PCP Family Medicine
DX: M25.571 Pain in right ankle and joints of right foot (principal); I12.9 Hypertensive chronic kidney disease with stage 1 through stage 4 chronic kidney disease, or unspecified chronic kidney disease; N18.30 Chronic kidney disease, stage 3 unspecified; M32.9 Systemic lupus erythematosus, unspecified
CPT/HCPCS: 36415; 80048; 85025; 85380; 85610; 85730; 93971; 99284; A9270

== ENCOUNTER 2024-08-09 15:18 | Emergency (ER) | payer MEDICARE, SELFPAY ==
[2024-08-09 15:31] VITALS: BP 103/61; PULSE 72; RESP 18; TEMP 36.3; O2SAT 100
--- NOTE | 2024-08-09 17:42 | ED_ITS ---
HPI - Skin/Abscess/Foreign Bdy General Chief complaint: Skin/Abscess/Foreign Body Stated complaint: R CHEEK ?ABSCESS History of Present Illness HPI narrative: Patient is a 68-year-old female who presents to the ER with a right open wound on her face. She reports she 1st noticed a spot a while ago but noticed swelling and redness around the area on Monday, 4 days ago. Patient reports she has been putting a pimple patch on the site. Since she has done this the site has open up and started draining. Patient endorses mild jaw pain and right cheek pain. She denies a history of diabetes. Related Data Home Medications Medication Instructions Recorded Confirmed cetirizine 10 mg tablet (Zyrtec) 10 mg PO DAILY PRN Allergy Symptoms 05/04/21 04/30/24 Allergies Allergy/AdvReac Type Severity Reaction Status Date / Time No Known Allergies Allergy Verified 04/30/24 16:38 Review of Systems Review of Systems: All systems reviewed & are unremarkable except as noted in HPI and below PMFSH Past Medical History Medical History Acid reflux Allergic rhinitis Chronic kidney disease, stage III (moderate) Compressed vertebrae Oct 19 from fall COVID-19 vaccine series completed (~07/2020) Gout History of vaginal delivery x 2 Hy kid NOS w cr kid I-IV Hypertension IFG (impaired fasting glucose) Lupus Surgical History Surgical History History of bunionectomy of both great toes History of cholecystectomy History of repair of right rotator cuff History of surgical removal of meniscus of knee History of total hysterectomy (~1995) due to fibroids and dysfunctional uterine bleeding History of tubal ligation Family History Family History Father , at age 82 Diabetes mellitus, Onset Age: 82 Hypertension Dementia Mother , at age 70 Hypertension Lung cancer Sibling Family history of blood dyscrasia Lung cancer her youngest sister of lung cancer. Social History Social History Social History: she lives in [place] with her of 40 years. They have 1 daughter and 1 son. She is employed as a [employer]. She is a lifelong nonsmoker. She very rarely drinks a small amount of alcohol. She denies any illicit substance use. Primary care physician: Dr. Pola Navarro Code status: Full code Surrogate decision maker: Smoking status: Never smoker Second hand tobacco smoke exposure: No Alcohol intake: former Substance use: never Substance use type: does not use Do You Feel Safe in your Home?: Yes Lack of Transportation: No Lack of Food: Never True Current Housing: I Have Housing Concerned About Future Housing: No Difficulty Paying Gas/Electric Bills: No Difficulty Paying for Meds: No Currently Unemployed: No Education: High School Diploma/GED Difficulty w/ Childcare or Family Care: No Living arrangements: with family Occupation/Education: occupation Gender identity (if verbalized by the patient): Female Sexual Orientation (if Verbalized by the Patient): Straight or Heterosexual Spiritual care concerns: No Exam Narrative: GENERAL: Well appearing, well-nourished, non-toxic, in no acute distress. HEAD: Normocephalic, pencil eraser-sized open wound on R cheek with approximately 1 cm circular cellulitis surrounding the area. NECK: Supple. No adenopathy, no masses. Mild R cervical lymphadema below the open site. RESPIRATORY: Airway patent, respirations nonlabored. Clear to auscultation bilaterally, no rales, rhonchi, wheezing. CARDIOVASCULAR: Regular rate and rhythm without murmurs, rubs, or gallops. Peripheral pulses 2+ and equal bilaterally. ABDOMINAL: Soft, nontender, nondistended, no hepatosplenomegaly. Normoactive BS. MUSCULOSKELETAL: Moves all extremities. Strength/ROM intact without gross deformities. SKIN: Warm, dry, normal color. No rashes. Pencil eraser-sized open wound on R cheek with approximately 1 cm circular cellulitis surrounding the area. NEURO: A&O X3. Speech clear. Cranial nerves II-XII grossly intact. No ataxic movements. PSYCHIATRIC: Appropriate mood and affect. Normal interaction. Course Vital Signs Vital signs: Vital Signs Temperature 36.3 C L 08/09/24 15:31 Pulse Rate 72 08/09/24 15:31 Respiratory Rate 18 08/09/24 15:31 Blood Pressure 103/61 08/09/24 15:31 Pulse Oximetry 100 08/09/24 15:31 Temperature 36.3 C L 08/09/24 15:31 Pulse Rate 72 08/09/24 15:31 Respiratory Rate 18 08/09/24 15:31 Blood Pressure 103/61 08/09/24 15:31 Pulse Oximetry 100 08/09/24 15:31 MDM - Skin/Abscess/Foreign Bdy MDM Narrative Medical decision making narrative: Patient is a 68-year-old female who presents to the ER with a right open wound on her face. She reports she 1st noticed a spot a while ago but noticed swelling and redness around the area on Monday, 4 days ago. Patient reports she has been putting a pimple patch on the site. Since she has done this the site has open up and started draining. Patient endorses mild jaw pain and right cheek pain. She denies a history of diabetes. Labs Ordered: None necessary Imaging Ordered: None necessary Diagnosis: R cheek wound, cellulitis Patient Education/Shared MDM: Results shared with the patient. Extensive education was provided to patient as to when she should return to the ER, including shortness of breath, fever, extensive swelling. Patient's verbalizes understanding and is in agreement with plan to discharge. Differential Diagnosis Differential diagnosis: Likely abscess of skin or subcutaneous tissue, cellulitis, impetigo and contact dermatitis Discharge Plan Discharge Clinical Impression: Abscess or cellulitis of cheek Patient Disposition: Home, Self-Care Condition: Stable Instructions: Antibiotic Form, Cellulitis (ED), Abscess (ED) Additional Instructions: Please return to the ER with any worsening symptoms including a fever, new onset of pus, excessive redness, excessive swelling, chest pain, or shortness of breath. Follow-up with your primary care provider as soon as possible. Please take all medications as prescribed. Prescriptions: New doxycycline monohydrate 100 mg capsule 100 mg PO BID Qty: 14 0RF No Action fluticasone propionate [Flonase Allergy Relief] 50 mcg/actuation spray,suspension 2 spray intranasal DAILY Qty: 16 0RF Rx Instructions: administer into each nostril cetirizine [Zyrtec] 10 mg tablet 10 mg PO DAILY PRN (Reason: Allergy Symptoms) calcitriol 0.25 mcg capsule 0.25 mcg PO 3XW Qty: 12 6RF Rx Instructions: Take on Mondays, Wednesdays, and Fridays hydrocodone-acetaminophen 5-325 mg tablet 1 tablet PO Q8H PRN (Reason: pain) Qty: 21 0RF tramadol 50 mg tablet 50 mg PO Q12H PRN (Reason: SEVERE PAIN) Qty: 10 0RF hydrocodone-acetaminophen 5-325 mg tablet 1 tablet PO Q12H PRN (Reason: pain) Qty: 14 0RF (DME) walker Misc See Rx Instructions .Route Qty: 1 0RF Rx Instructions: As directed hydrocodone-acetaminophen 5-325 mg tablet 1 tablet PO Q6H PRN (Reason: pain) Qty: 12 0RF pantoprazole 40 mg tablet,delayed release (DR/EC) 40 mg PO QAM Qty: 90 3RF ggrpktelfd-fopwdiaqs-owlhlohgg 20-5-12.5 mg tablet 1 tablet PO DAILY Qty: 90 3RF venlafaxine 150 mg capsule,extended release 24hr 150 mg PO DAILY Qty: 90 3RF nebivolol 5 mg tablet 5 mg PO DAILY Qty: 90 3RF febuxostat [Uloric] 40 mg tablet 40 mg PO DAILY Qty: 30 5RF colchicine 0.6 mg tablet 0.6 mg PO .COMPLEX Qty: 30 0RF Rx Instructions: 2 po once, then 1 po one hr later, then 1 po qd Follow-up/Referrals: Pola Navarro MD [Primary Care Provider] - Time of Disposition: 17:54
[2024-08-09] MEDS: HYDROcodone/acetaminophen (*CRX) 5-325 MG TABLET 1 TAB PO (18:02)
[2024-08-09] MEDS: DOXYCYCLINE HYCLATE 100 MG TABLET PO (18:02)
== END 2024-08-09 18:18 | disposition home or self-care (01) ==
LOC: ANHED 18:11
PROVIDERS: Emergency Provider Registered Nurse; PCP Family Medicine
DX: L02.01 Cutaneous abscess of face (principal); L03.211 Cellulitis of face; I12.9 Hypertensive chronic kidney disease with stage 1 through stage 4 chronic kidney disease, or unspecified chronic kidney disease; N18.30 Chronic kidney disease, stage 3 unspecified; M32.9 Systemic lupus erythematosus, unspecified; M10.9 Gout, unspecified; K21.9 Gastro-esophageal reflux disease without esophagitis; Z90.49 Acquired absence of other specified parts of digestive tract; Z90.710 Acquired absence of both cervix and uterus; Z79.899 Other long term (current) drug therapy
CPT/HCPCS: 99283; A9270

== ENCOUNTER 2024-08-14 08:24 | Outpatient (CLI) | payer MEDICARE, SELFPAY ==
--- NOTE | ~2024-08-14 | MMUS_ITS ---
MM post biopsy diagnostic RT, US breast biopsy RT w image EXAMINATION: US GUIDED NEEDLE BIOPSY WITH VACUUM ASSISTANCE DATE: 08/14/2024 09:46 WET POUR MIXER INDICATION: Right breast mass seen on prior examination. Ultrasound-guided core biopsy is requested to evaluate for malignancy. BREAST PARENCHYMAL COMPOSITION: Not dense: There are scattered areas of fibroglandular density. TECHNIQUE AND FINDINGS: The risks and potential benefits of the procedure were discussed with the patient, and written inform ed consent was obtained. After sterile preparation of the right breast, 1% lidocaine was utilized fo r local anesthesia. 1% lidocaine with epinephrine was used for deep anesthesia. A 10G vacuum-assisted biopsy gun needle was advanced through to the outer edge of the region of inter est from a superior approach utilizing sonographic guidance. A total of 4 tissue core samples were o btained through the lesion. An Inrad tissue marker clip was then placed at the biopsy site. Hemostas is was achieved. The patient tolerated procedure well and there was no evidence of immediate complication. The patien t was given verbal instructions partly is from the department. Right breast mammograms to document t issue marker clip placement. The tissue samples were submitted to surgical pathology for histologic a nalysis. IMPRESSION: 1. Successful ultrasound-guided vacuum-assisted biopsy of right breast mass with post procedure mamm ogram for marker placement. Please refer to pathology report for histologic analysis. Reviewed, dictated and finalized at location B. POUR MIXER IMPRESSION: 1. Successful ultrasound-guided vacuum-assisted biopsy of right breast mass wi th post procedure mammogram for marker placement. Please refer to pathology rep ort for histologic analysis.
== END 2024-08-14 08:25 | disposition home or self-care (01) ==
PROVIDERS: PCP Family Medicine; Visit Provider Physician Assistant
DX: R92.8 Other abnormal and inconclusive findings on diagnostic imaging of breast (principal); C50.411 Malignant neoplasm of upper-outer quadrant of right female breast
CPT/HCPCS: 19083; 77065; 88305; 88342; 88360; A4648

== ENCOUNTER 2024-08-29 14:03 | Outpatient (CLI) | payer MEDICARE, SELFPAY ==
[2024-08-29 14:51] LABS: Albumin Level 4.1 g/dL (3.5-5.1); Anion Gap 6 mmol/L (4-12); Blood Urea Nitrogen 21 mg/dL (7-17); Calcium 8.9 mg/dL (8.4-10.2); Carbon Dioxide 28 mmol/L (22-30); Chloride 105 mmol/L (98-107); Estimated Glomerular Filt Rate 30; Glucose 117 mg/dL (65-110); Phosphorus 3.2 mg/dL (2.5-4.5); Potassium 3.5 mmol/L (3.4-5.0); Sodium 139 mmol/L (137-145)
[2024-08-29 15:37] LABS: Total Protein Urine Random 80 mg/dL; Ur Ttl Prot Creatinine Ratio 0.57 mg/mg (0-0.20)
[2024-08-29 15:42] LABS: Parathyroid Intact 43.6 pg/mL (14.5-75.2)
== END 2024-08-29 14:04 | disposition home or self-care (01) ==
LOC: ANHLAB 14:04
PROVIDERS: PCP Family Medicine; Visit Provider Internal Medicine Nephrology
DX: I12.9 Hypertensive chronic kidney disease with stage 1 through stage 4 chronic kidney disease, or unspecified chronic kidney disease (principal); N18.4 Chronic kidney disease, stage 4 (severe); N25.81 Secondary hyperparathyroidism of renal origin
CPT/HCPCS: 36415; 80069; 82570; 83970; 84156

== ENCOUNTER 2024-10-13 11:19 | Emergency (ER) | payer MEDICARE, SELFPAY ==
--- OUTSIDE RECORDS SUMMARY | 2024-10-13 11:22 | XMS_ITS | Referral Summary ---
Author Organization [address] Address [address] [place] [address] Care Team Providers Care Hooker On Name Role Phone Pola Navarro MD Primary Care Provider Rishi Daryb Unavailable [phone] Vivek Barrow MD PhD Unavailable Teresa Lima MD Unavailable [phone] Encounters Date Type Department Care Team Description 10/11/2024 11:15 AM BROACHING MACHINE REPAIRER Lab [facility] Building [address] [place] [address] Arrived 10/11/2024 10:00 AM BROACHING MACHINE REPAIRER - 10/11/2024 11:59 PM BROACHING MACHINE REPAIRER [facility] B[facility] [address] [place] [address] [address] [place] [address] Primary cancer of right female breast (HCC) Discharge Disposition: Discharge to home or self care 10/09/2024 11:45 AM BROACHING MACHINE REPAIRER Lab [facility] Building [address] [place] [address] 10/04/2024 1:00 PM BROACHING MACHINE REPAIRER Office Visit [facility] Oncology [address] [place] [address] [address] [place] [id number] Vivek Barrow MD PhD Malignant neoplasm of upper-outer quadrant of right breast in female, estrogen receptor positive (HCC) (Primary Dx); Malignant neoplasm of right female breast, unspecified estrogen receptor status, unspecified site of breast (HCC) 09/09/2024 Orders Only [facility] [address] [place] [address] Vivek Barrow MD PhD Malignant neoplasm of right female breast, unspecified estrogen receptor status, unspecified site of breast (HCC) 09/06/2024 Orders Only [facility] [address] [facility] [address] [place] [address] Vivek Barrow MD PhD Malignant neoplasm of right female breast, unspecified estrogen receptor status, unspecified site of breast (HCC) (Primary Dx) 09/06/2024 9:15 AM BROACHING MACHINE REPAIRER Office Visit [facility] [address] [facility] [address] [place] [address] Linda Ortiz NP Status post total left knee replacement (Primary Dx); Risk for falls; Left knee pain, unspecified chronicity; Orthopedic aftercare; Altered gait 09/02/2024 Orders Only [facility] Surgery [address] [facility] Floor 8 [place] [address] Aft, Senia Tierney MD PhD Abnormal mammogram (Primary Dx) 08/14/2024 12:05 AM BROACHING MACHINE REPAIRER - 08/14/2024 11:59 PM BROACHING MACHINE REPAIRER [facility] [address] [place] [address] Discharge Disposition: Discharge to home or self care 08/14/2024 - 08/14/2024 11:59 PM BROACHING MACHINE REPAIRER Hospital [facility] [address] [place] [address] Discharge Disposition: Discharge to home or self care from Last 3 Months Allergies Active Allergy Reactions Criticality Noted Date Comments Shellfish Derived Anaphylaxis High 01/21/2019 Medications colchicine (COLCRYS) 0.6 mg tabletIndicati ons:acute gouty arthritis Take 1 tablet (0.6 mg total) by mouth as needed Active fluticasone propionate (FLONASE) 50 mcg/actuation nasal sprayIndicatio ns:Allergic Rhinitis 1 spray each nostril daily as needed congestion 4 Active venlafaxine XR (EFFEXOR-XR) 150 mg 24 hr capsuleIndicat ions:major depressive disorder Take 1 capsule (150 mg total) by mouth every morning Active olmesartan-amL ODIPin-hcthiaz id 20-5-12.5 mg tabletIndicati ons:hypertensi on Take 1 tablet/capsule by mouth every morning 4 Active nebivoloL (BYSTOLIC) 5 mg tabletIndicati ons:hypertensi on Take 1 tablet (5 mg total) by mouth every morning Active febuxostat (ULORIC) 40 mg tablet Take 1 tablet (40 mg total) by mouth daily 4 Active dexlansoprazol e (Dexilant) 60 mg capsule DEXILANT 60 MG ORAL CAPSULE DELAYED RELEASE Active letrozole (FEMARA) 2.5 mg tablet Take 1 tablet (2.5 mg total) by mouth daily 30 tablet 3 5 04/02/20 25 Active letrozole (FEMARA) 2.5 mg tablet Take 1 tablet (2.5 mg total) by mouth daily 30 tablet 5 5 10/04/19 25 Discontinu ed(Reorder ) Active Problems Problem Noted Date Diagnosed Date Malignant neoplasm of upper- outer quadrant of right breast in female, estrogen receptor positive 10/02/2024 Status post total left knee replacement 07/04/20 24 Primary osteoarthritis of right knee 04/10/2024 Resolved Problems Problem Noted Date Diagnosed Date Resolved Date Primary osteoarthritis of left knee 06/12/2024 07/04/2024 Arthritis of knee, left 04/10/202406/18 Social History Tobacco Use Types Packs/Day Years Used Date Smoking Tobacco: Never Tobacco Cessation:Counseling Given: Not Answered OASIS D0700: Social Isolation Answer Da te Recorded Frequency of experiencing loneliness or isolatio n Never 06/24/2024 OASIS A1250: Transportation Answer Date Recorded Lack of Transportation (Medical) No 06/24/2024 Lack of Transportation (Non-Medical) No 06/24/2024 Patient Unable or Declines to Respond No 06/24/2024 OASIS B1300: Health Literacy Answer Nando e Recorded Frequency of needing help to read materials from doctor or pharmacy Never 06/24/2024 AUDIT-C Answer Date Recorded Q1: How often do you have a drink containing alcohol? Never 06/12/2024 Q2: How many drinks containi ng alcohol do you have on a typical day when you are drinking? Patient does not drink Q3: How often do you have si x or more drinks on one occasion? Never 06/12/2024 Personal Safety Answer Date Recorded Have you ever been in or are you currently in a harmful physical or emotional relationship or is someone making you feel afraid or unsafe? Denies 06/12/2024 Comments No Sex and Gender Information Value Date Recorded Sex Assigned at Not on file Legal Sex Female 5:04 AM BROACHING MACHINE REPAIRER Gender Identity Not on file Sexual Orientation Not on file Last Filed Vital Signs Vital Sign Reading Time Taken Comments Blood Pressure 158/82 10/04/2024 1:43 PM BROACHING MACHINE REPAIRER Pulse 82 10/04/2024 1:43 PM BROACHING MACHINE REPAIRER Temperature 36.6 ??C (97.8 ??F) 10/04/2024 1:43 PM CS T Respiratory Rate 20 10/04/2024 1:43 PM BROACHING MACHINE REPAIRER Oxygen Saturation 98% 10/04/2024 1:43 PM BROACHING MACHINE REPAIRER Inhaled Oxygen Concentration - - Weight 91.6 kg (202 lb) 10/04/2024 1:43 PM BROACHING MACHINE REPAIRER n o shoes Height 157.5 cm (5' 2 ) 10/04/2024 1:43 PM BROACHING MACHINE REPAIRER n o shoes Body Mass Index 36.95 10/04/2024 1:43 PM BROACHING MACHINE REPAIRER Plan of Treatment Not on file Medical Devices Implanted Type Area Roping Tender Device Identifier Shelf Expiration Date Model / Serial / Lot [employer] Simplex P Radiopaque Full Dose Cement Bone Sterile 6191-1-010 - [id number] Implanted:Qty: 1 on 06/12/2024 by Doni Sharma MD at [facility] Left: Knee [employer] [id number] 04/17/2026 6191-1-010 / / [id number] [employer] Simplex P Radiopaque Full Dose Cement Bone Sterile 6191-1-010 - [id number] Implanted:Qty: 1 on 06/12/2024 by Doni Sharma MD at [facility] Left: Knee [employer] [id number] 04/17/2026 6191-1-010 / / [id number] [employer]/Or tho Nereida Ii [id number] Knee Oval Component Patellar Uhmwpe [id number] - [id number] Implanted:Qty: 1 on 06/12/2024 by Doni Sharma MD at [facility] Left: Knee [employer]/O rtho [id number] 02/11/2034 [id number] / / [id number] [employer]/Or tho Journey Bicruciate Stabilize Knee Left 4 Baseplate Tibial [id number] - [id number] Implanted:Qty: 1 on 06/12/2024 by Doni Sharma MD at [facility] Left: Knee [employer]O rtho [id number] 02/24/2034 [id number] / / [id number] [employer]Or tho Journey Ii Cruciate Retain Knee Left 5 Component Femoral Oxinium [id number] - [id number] Implanted:Qty: 1 on 06/12/2024 by Doni Sharma MD at [facility] Left: Knee [employer]O rtho [id number] 02/23/2034 [id number] / / [id number] [employer]/Or tho Insert Tibial Knee Fixed Lm Articular Journey Ii 11mm Size 3-4 Xlpe [id number] - [id number] Implanted:Qty: 1 on 06/12/2024 by Doni Sharma MD at [facility] Left: Knee [employer] [id number] 08/12/2033 [id number] / / [id number] Procedures Procedure Name Priority Date/Time Associated Diagnosis Comments US AXILLARY RIGHT Schedule Routine, Read Routine (OP Routine) 10/11/2024 11:11 AM BROACHING MACHINE REPAIRER Primary cancer of right female breast (HCC) URINE CULTURE Routine 10/11/2024 10:30 AM BROACHING MACHINE REPAIRER URINALYSIS AND REFLEX TO MICROSCOPIC AND CULTURE Routine 10/11/2024 10:30 AM BROACHING MACHINE REPAIRER EGFR Routine 10/09/2024 11:52 AM BROACHING MACHINE REPAIRER DIFFERENTIAL AUTO Routine 10/09/2024 11: 52 AM BROACHING MACHINE REPAIRER COMPREHENSIVE METABOLIC PANEL Routine 10/09/2024 11:52 AM BROACHING MACHINE REPAIRER CBC WITH AUTO DIFFERENTIAL Routine 10/09/2024 11:52 AM BROACHING MACHINE REPAIRER SURGICAL PATHOLOGY Routine 09/09/2024 10 :21 AM BROACHING MACHINE REPAIRER Malignant neoplasm of right female breast, unspecified estrogen receptor status, unspecified site of breast (HCC) BREAST IMAGING US OUTSIDE REFERENCE Routine 08/14/2024 12:05 AM BROACHING MACHINE REPAIRER BREAST IMAGING MG DIAGNOSTIC OUTSIDE REFERENCE Routine 08/14/2024 12:00 AM BROACHING MACHINE REPAIRER from Last 3 Months Results * US Axillary Breast Right (10/11/2024 11:11 AM BROACHING MACHINE REPAIRER) Anatomical Region Laterality Modality Upper Extremities Right Ultrasound 10/11/2024 5:00 PM BROACHING MACHINE REPAIRER Impressions 10/11/2024 5:00 PM BROACHING MACHINE REPAIRER No evidence to suggest malignancy in the right axilla is seen. Known invasive primary in the right breast. OVERALL FINAL ASSESSMENT: BI-RADS 6-[id number]-uguxya malignancy. Electronically signed by: Kathryn Valles M.D. Narrative 10/11/2024 5:00 PM BROACHING MACHINE REPAIRER PROCEDURE: ULTRASOUND AXILLARY BREAST RIGHT HISTORY: Known invasive primary in the right breast COMPARISON(S): Outside images from August 14, 2024 TECHNIQUE: Orr scale and color Doppler FINDINGS: Sonography through the right axilla demonstrates only normal-appearing lymph nodes with thin cortices. Procedure Note Kathryn Valles MD - 10/11/2024 PROCEDURE: ULTRASOUND AXILLARY BREAST RIGHT HISTORY: Known invasive primary in the right breast COMPARISON(S): Outside images from August 14, 2024 TECHNIQUE: Orr scale and color Doppler FINDINGS: Sonography through the right axilla demonstrates only normal-appearing lymph nodes with thin cortices. IMPRESSION: No evidence to suggest malignancy in the right axilla is seen. Known invasive primary in the right breast. OVERALL FINAL ASSESSMENT: BI-RADS 3-gjwdco-vbrfgg malignancy. Electronically signed by: Kathryn Valles M.D. Claudio Lara MD [facility] PROCEDURES Final Result * Urinalysis reflex to microscopic and culture Urine (10/11/2024 10:30 AM BROACHING MACHINE REPAIRER) Color, ur Yellow Yellow Comment:Testing performed by : [address] [address] Clarity, ur Clear Clear MIRELLA Comment:Testing performed by : [address] [address] Specific gravity, ur 1.012 1.003 - 1.030 MIRELLA Comment:Testing performed by : [address] [address] pH, urine 5.5 MIRELLA Comment: Interpretive Data ? Urine pH is affected by diet, medications, systemic acid-base disturbances, and renal tubular function. ??pH may affect urinary stone formation. ??For example, urine pH below 6.0 may help reduce the tendency for calcium phosphate stones and pH greater than 6.0 may reduce the tendency for uric acid stone formation. Source: Perry Revalesio Current Interpretive Data was last revised on 2017 Testing performed by: [address] [address] Protein, ur ql Negative Negative MIRELLA Comment:Testing performed by : [address] [address] Glucose, ur ql Negative Negative MIRELLA Comment:Testing performed by : [address] [address] Ketones, ur Negative Negative MIRELLA Comment:Testing performed by : [address] [address] Bilirubin, ur Negative Negative MIRELLA Comment:Testing performed by : [facility], [address] [place] [address]., [address] Blood, ur Negative Negative MIRELLA MARK Comment:Testing performed by : [address] [address] Urobilinogen, ur <2.0 <2.0 mg/dL MIRELLA MARK Comment:Testing performed by : [address] [address] Nitrite, ur Negative Negative MIRELLA MARK Comment:Testing performed by : [address] [address] Leukocyte esterase, ur Negative Negative MIRELLA Comment:Testing performed by : [address] [address] Urine 10/11/2024 10:3 0 AM BROACHING MACHINE REPAIRER 10/11/2024 12:46 PM BROACHING MACHINE REPAIRER Claudio Lara MD LAB MICROBIOLOGY - GENERAL ORD ERABLES Final Result Performing Organization Address [facility] [[email or web address]] Co de Phone Number [address] [employer] [place] [address] * Urine culture Urine (10/11/2024 10:30 AM BROACHING MACHINE REPAIRER) Report Final Report: Less than 100,000 colonies/mL (clinically insignificant growth based on current clinical standards) Comment:Testing performed by : [facility], [address] [place]., [address] Organism (CLINICALLY INSIGNIFICANT GROWTH MIRELLA Urine 10/11/2024 10:3 0 AM BROACHING MACHINE REPAIRER 10/11/2024 4:44 PM BROACHING MACHINE REPAIRER Narrative MIRELLA - 10/13/2024 7:30 AM BROACHING MACHINE REPAIRER Testing performed by [facility] Microbiology Laboratory ([phone]) Claudio Lara MD LAB MICROBIOLOGY - GENERAL ORD ERABLES Final Result Performing Organization Address [facility]/ZIP Co de Phone Number [address] [employer] [place] [address] * (ABNORMAL) eGFR (10/09/2024 11:52 AM BROACHING MACHINE REPAIRER) eGFR 12(L) >=60 mL/min/1. 73 m2 Comment: Interpretive Data Reference Interval Normal ?>/= 90 mL/min/1.73m2 Mildly decreased* ? 60 - 89 mL/min/1.73m2 Mildly to moderately decreased ?45 - 59 mL/min/1.73m2 Moderately to severely decreased ??30 - 44 mL/min/1.73m2 Severely decreased ?15 - 29 mL/min/1.73m2 Kidney Failure ?< 15 ??mL/min/1.73m2 *Relative to young adult level Estimated glomerular filtration rate is determined by the 2020 CKD-EPI equation recommended by the National Kidney Foundation (A Unifying Approach to GFR Estimation: Recommendations of the NKF-ASK Task Force on Reassessing the Inclusion of Race in Diagnosing Kidney Disease, JASN 2020). The CKD-EPI equation should not be used for patients with unstable renal function and has not been validated in children and those over 70. Current interpretive data was last reviewed 2021. Testing performed by: [facility], [address] [place] [address]., [address] Blood 10/09/2024 11:5 2 AM BROACHING MACHINE REPAIRER 10/09/2024 12:39 PM BROACHING MACHINE REPAIRER us Claudio Lara MD LAB BLOOD ORDERABLES Final Res ult [facility] [address] [facility] Department [place] [address] * (ABNORMAL) Differential, auto (10/09/2024 11:52 AM BROACHING MACHINE REPAIRER) Neutrophil abs 12.8(H) 1.5 - 6.5 K/cumm Comment:Testing performed by : [address] [address] Imm gran abs 0.3(H) 0.0 - 0.1 K/cumm CERNER Comment:Testing performed by : [address] [address] Lymphocyte abs 3.1 0.8 - 3.3 K/cumm CERNER Comment:Testing performed by : [address] [address] Monocyte abs 1.8(H) 0.2 - 0.8 K/cumm [facility] Comment:Testing performed by : [address], [place]., [address] Eosinophil abs 0.0 0.0 - 0.5 K/cumm [facility] Comment:Testing performed by : [address] [address] Basophil abs 0.0 0.0 - 0.1 K/cumm [facility] Comment:Testing performed by : [address] [address] Neutrophil pct 71.1 % [facility] Comment: Interpretive Data Percent cell count reference ranges are not reported, since discordance with absolute values may lead to misinterpretation of CBC data. Current Interpretive Data was last revised on 2017. Testing performed by: [address] [address] Imm gran pct 1.6 % [facility] Comment: Interpretive Data Percent cell count reference ranges are not reported, since discordance with absolute values may lead to misinterpretation of CBC data. Current Interpretive Data was last revised on 2017. Testing performed by: [address] [address] Lymphocyte pct 17.1 % [facility] Comment: Interpretive Data Percent cell count reference ranges are not reported, since discordance with absolute values may lead to misinterpretation of CBC data. Current Interpretive Data was last revised on 2017. Testing performed by: [address] [address] Monocyte pct 10.0 % C[facility] Comment: Interpretive Data Percent cell count reference ranges are not reported, since discordance with absolute values may lead to misinterpretation of CBC data. Current Interpretive Data was last revised on 2017. Testing performed by: [address] [address] Eosinophil pct 0.0 % MIRELLA Comment: Interpretive Data Percent cell count reference ranges are not reported, since discordance with absolute values may lead to misinterpretation of CBC data. Current Interpretive Data was last revised on 2017. Testing performed by: [address] [address] Basophil pct 0.2 % MIRELLA Comment: Interpretive Data Percent cell count reference ranges are not reported, since discordance with absolute values may lead to misinterpretation of CBC data. Current Interpretive Data was last revised on 2017. Testing performed by: [address] [address] Blood 10/09/2024 11:5 2 AM BROACHING MACHINE REPAIRER 10/09/2024 12:40 PM BROACHING MACHINE REPAIRER Claudio Lara MD LAB BLOOD ORDERABLES Final Res ult [facility] [address] [facility] Department [place] [address] * (ABNORMAL) CBC with auto differential (10/09/2024 11:52 AM BROACHING MACHINE REPAIRER) WBC 18.1(H) 3.8 - 9.9 K/cumm Comment:Testing performed by : [address] [address] Hgb 11.9 11.9 - 15.5 g/dL MIRELLA MARK Comment:Testing performed by : [address] [address] Hct 37.8 35.6 - 45.5 % MIRELLA MARK Comment:Testing performed by : [address] [address] Plt 348 150 - 400 K/cumm MIRELLA MARK Comment:Testing performed by : [address] [address] MPV 10.0 9.1 - 12.3 fL MIRELLA MARK Comment:Testing performed by : [address] [address] RBC 4.17 3.90 - 5.20 M/cumm MIRELLA MARK Comment:Testing performed by : [address] [address] MCV 90.6 81.3 - 96.4 fL MIRELLA MARK Comment:Testing performed by : [address] [address] MCH 28.5 27.1 - 33.3 pg MIRELLA MARK Comment:Testing performed by : [address] [address] MCHC 31.5(L) 32.3 - 35.7 g/dL MIRELLA MARK Comment:Testing performed by : [address] [address] RDW CV 15.9(H) 11.1 - 14.9 % MIRELLA MARK Comment:Testing performed by : [address] [address] RDW SD 52.8(H) 35.7 - 48.1 fL MIRELLA MARK Comment:Testing performed by : [address] [address] NRBC abs 0.00 0.00 - 0.01 K/cumm MIRELLA MARK Comment:Testing performed by : [address] [address] Blood 10/09/2024 11:5 2 AM BROACHING MACHINE REPAIRER 10/09/2024 12:40 PM BROACHING MACHINE REPAIRER us Claudio Lara MD LAB BLOOD ORDERABLES Final Res ult [facility] [address] [facility] Department [place] [address] * (ABNORMAL) Comprehensive metabolic panel (10/09/2024 11:52 AM BROACHING MACHINE REPAIRER) Sodium 139 135 - 145 mmol/L Comment:Testing performed by : [address] [address] Potassium, pl 4.2 3.3 - 4.9 mmol/L MIRELLA Comment:Testing performed by : [address], [place]., [address] Chloride 100 97 - 110 mmol/L MIRELLA Comment:Testing performed by : [address], [place]., [address] CO2 25 22 - 32 mmol/L MIRELLA Comment:Testing performed by : [address] [address] Anion gap 14 2 - 15 mmol/L MIRELLA Comment:Testing performed by : [address], [place]., [address] BUN 53(H) 6 - 25 mg/dL [facility] Comment:Testing performed by : [address] [address] Creatinine 3.94(H) 0.60 - 1.10 mg/dL MIRELLA Comment:Testing performed by : [address] [address] Glucose 81 70 - 199 mg/dL [facility] Comment: Interpretive Data Fasting glucose >/= 126 mg/dl is diagnostic for diabetes. ?? Fasting is defined as no caloric intake for at least 8 hours. Fasting glucose between 100 mg/dl to 125 mg/dl is diagnostic of prediabetes. In a patient with classic symptoms of hyperglycemia or hyperglycemic crisis, a random glucose >/= 200 mg/dl is diagnostic for diabetes. In the absence of unequivocal hyperglycemia, results should be confirmed by repeat testing. The classification and Diagnosis of Diabetes Diabetes Care 202; 46: S19-S40. Current interpretive data was last revised 2022. Testing performed by: [address] [address] Calcium 9.8 8.5 - 10.3 mg/dL [facility] Comment:Testing performed by : [address] [address] Bilirubin, total 0.3 0.1 - 1.2 mg/dL MIRELLA Comment:Testing performed by : [address] [address] Protein, pl 7.7 6.5 - 8.5 g/dL MIRELLA Comment:Testing performed by : [address] [address] Albumin 4.0 3.5 - 5.0 g/dL MIRELLA MARK Comment:Testing performed by : [address] [address] Alk phos 65 40 - 130 Units/L MIRELLA MARK Comment:Testing performed by : [address] [address] ALT 7 7 - 45 Units/L MIRELLA Comment:Testing performed by : [address] [address] AST 21 10 - 45 Units/L MIRELLA Comment:Testing performed by : [address] [address] Blood 10/09/2024 11:5 2 AM BROACHING MACHINE REPAIRER 10/09/2024 12:39 PM BROACHING MACHINE REPAIRER Claudio Lara MD LAB BLOOD ORDERABLES Final Res ult [facility] [address] [facility] Department [place] [address] * Surgical pathology (09/09/2024 10:21 AM BROACHING MACHINE REPAIRER) Tissue (Miscellaneous) 09/09/2024 10:21 AM BROACHING MACHINE REPAIRER 09/09/2024 10:21 AM BROACHING MACHINE REPAIRER Narrative [facility] PATHOLOGY LAB - 09/27/2024 10:55 AM BROACHING MACHINE REPAIRER EPIC results best viewed via link to PDF [facility] Pathology Consult Service Malvin Srinivasan [address], [address], [place] [address] Note to Patients: This report may contain a detailed description of human tissue sent by a health care provider to the laboratory for pathologic evaluation. The content of this report is essential for diagnosis and may provide important critical findings. This information may be unfamiliar to patients to review without a medical professional present. It is advised that the patient review this report in the presence of a health care provider who can answer questions and explain the details. SURGICAL PATHOLOGY REPORT * Consult Report * [facility] is providing an additional review of previously collected tissue. FINAL Patient Name: ??CHANELL GARCIA Address: ??[address] [facility], ?[place], [place] ??[address] Gender: ??F : ??1955 (Age: 68) Hospital #: ??[id number] Patient Type: ??WU Location: ??UNKNOWN Taken: ??09/09/2024 Received: ??09/09/2024 Accessioned: ??09/09/2024 Reported: ??09/27/2024 Physician(s): Vivek Barrow M.D. [facility] Department of Pathology [address] [place] [address] P: [phone] F: [phone] Histology: [phone] Diagnosis: Consult material received from [place], [place] (OSC: [id number]; 08/14/2024). ?? Right breast mass at 10:00, 10 cm from nipple, needle core biopsy ? - Invasive mammary carcinoma with lobular features, histologic grade 1/3 by ESBR criteria ? - Lobular carcinoma in situ fib/09/27/2024 10:55 By this signature, I attest that the above diagnosis is based upon my personal examination of the slides(and/or other material indicated in the diagnosis). Willem Harp M.D. Report Electronically Reviewed and Signed Out By Willem Harp M.D. 09/27/2024 10:55:44 Microscopic Description and Comment: Microscopic examination substantiates the above cited diagnosis. Biomarkers are submitted for review and show the following: ER positive (Feliberto score 7/8), ND positive (Feliberto score 7/8), HER2 negative (score 0), and Ki67 < 10%. History: The patient is a 68-year-old woman with history of malignant neoplasm of right breast. Materials Received: Received for review are seven slides labeled [id number], accompanied by a corresponding pathology report. The material originates from [place], [place]. Selected slide(s) may be digitally scanned for our files, and all materials are returned to the referring institution, along with a copy of our final report. Any testing required for diagnostic purposes was performed in the Department of Pathology and Immunology at [facility], [address] [place] [address] CLIA # [id number] The performance characteristics of the testing cited in this report (if any) were determined by the ??[facility] Department of Pathology and Immunology [facility], as part of an ongoing quality measurement specialist program and in compliance with federally mandated regulations drawn from the Clinical Laboratory Improvement Act of 1988 (CLIA '88). ??Some of these tests rely on the use of analyte specific reagents (ASR) and are subject to specific labeling requirements by the US Food and Drug Administration. ??Such diagnostic tests may only be performed in a facility that is certified by the Department of Health and Human Services as a high complexity laboratory under CLIA '88. ??The FDA has determined that such clearance or approval is not necessary. ??ASRs should not be regarded as investigational or for research. ??ASRs were developed and the performance characteristics determined by the [facility], [facility] Department of Pathology and Immunology. ??It has not been cleared or approved by the U.S. Food and Drug Administration. ??Any test designated as LDT was developed and its performance characteristics determined by [facility]. It has not been cleared or approved by the FDA. This test is used for clinical purposes and should not be regarded as investigational or for research. Report images and/or scanned reports, if included, only viewable in PDF version of report. 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 us Provider Transcribed Order IMG MAMMO PROCEDURES Final Result [email or web address] * Breast Imaging Diagnostic Outside Reference (08/14/2024 12:00 AM BROACHING MACHINE REPAIRER) Narrative GAIL - 10/10/2024 9:39 AM BROACHING MACHINE REPAIRER This order has been auto-finalized and does not contain a result. us Provider Transcribed Order IMG MAMMO PROCEDURES Final Result Performing Organization Address City/State/[facility] [[email or web address]] Co de Phone Number KANDI_[email or web address]_MHE from Last 3 Months Insurance [facility] MEDICARE [facility] MEDICARE [employer] MEDICARE AETNA MEDICARE Advance Directives For more information, please contact: [phone] * Full Code (Latest Code Status on File) Date Activated Date Inactivated Comments 06/12/2024 3:06 PM 06/13/2024 7:05 PM Care Teams Hooker On Relationship Specialty Start Date End Date Pola Navarro MD [address] [address] PCP - General Family Medicine 04/03/24 Rishi Darby PA [address] [place] [address] [address] [place] [address] Referring Physician Physician Change Consultant 09/02/24 Vivek Barrow MD PhD [address] [facility] [address] [place] [address] Medical Oncologist/Physical Anthropologist Medical Oncology 10/02/24 Teresa Lima MD [facility] [address] [place] [address] Referring Physician Nephrology 10/04/24
--- OUTSIDE RECORDS SUMMARY | 2024-10-13 11:22 | XMS_ITS | CONTINUITY OF CARE DOCUMENT ---
Author Name unique calhoun Address Unknown Organization [facility] Address [address] [facility] [address] [place] [address] Phone [phone] Care Team Providers Care City Magistrate Name Role Phone Ed WHITTINGTON, Paul Unavailable LESLI WHITTINGTON, DONNIE Unavailable Unavailable LESLI WHITTINGTON, NASER Unavailable Unavailable PROBLEMS Condition Status Date Provider Notes Other symptoms involving cardiovascular system completed - Krystina Thompson Hypertension active ? Paul Ward MD Chest pain-type to be determined active Paul Ward MD GERD active Paul Ward MD Gout active Paul Ward MD Family History of Hypertension: completed - Cohen Palpitations active Paul Ward MD Renal failure, chronic active Paul gayle MD Obesity active Krystinarodney Thompson ENCOUNTERS Date Type Provider Location Encounter Diag nosis - In-person encounter Office Visit Paul Ward MD [facility] Other symptoms involving cardiovascular systemFamily History of Hypertension:Obesity - In-person encounter Office Visit Paul Ward MD [facility] HypertensionChest pain-type to be determinedGERDGoutPalpitationsRenal failure, chronic VITAL SIGNS Date Observation Value Provider blood pressure, diastolic 80 mm[Hg] As fallon Grider blood pressure, systolic 128 mm[Hg] Paulo monique Grider pulse rate 66 /min Donna Grider oxygen saturation, oximetry 96 % Odnnamonique Grider respiratory rate E&M 16 /min Donna Grider Body Mass Index (Ratio) 44.33 kg/m2 [facility] 227 [lb_av] Donnagilberto Grider blood pressure, diastolic, right arm 86 m m[Hg] Donnagilberto Grider blood pressure, systolic, right arm 130 m m[Hg] Donnamonique Grider blood pressure, diastolic 90 mm[Hg] [facility]marvin blood pressure, systolic 140 mm[Hg] [facility] Marni pulse rate 88 /min Donnagilberto Grider oxygen saturation, oximetry 96 % Donnamonique Grider respiratory rate E&M 16 /min Donnagilberto Grider Body Mass Index (Ratio) 43.16 kg/m2 [facility] weight E&M 221 [lb_av] Donnamonique Grider height E&M 60 [in_i] Donna Grider ALLERGIES No Known Drug Allergies HISTORY OF MEDICATION USE Medication Status Instructions Dates Provider Indications Com ments FLONASE 50 MCG/ACT NASAL SUSPENSION active 1 spray each nostril every day Donna Grider BYSTOLIC TABLET active 1 daily Donna Grider DEXILANT 60 MG ORAL CAPSULE DELAYED RELEASE active 1 daily Donna Grider TRIBENZOR 20-5-12.5 MG ORAL TABLET active 1 daily Donna Grider ZEGERID OTC CAPSULE active 1 daily Donna Grider ZITHROMAX Z-BRANDEN TABLET completed as directed - Donna Grider ULORIC TABS active 1 daily Donna Grider SOCIAL HISTORY Date Observation Value Provider social history reviewed E&M revi ewed - no changes required Paul Ward MD smoking status Never smoker Donna Grider social history E&M S moking History: Abdon wilson has never smoked. Paul Ward MD social history reviewed E&M tere ewed - no changes required Paul Ward MD smoking status Never smoker Donna Grider FAMILY HISTORY Family Member Condition Mother Family History of Hy pertension: Father Family History of Di abetes: Father Negative FH of Coron stacie Artery Disease INSURANCE PROVIDERS Payer name Policy type / Coverage type [employer] party ID [facility] [id number] 1 TREATMENT PLAN Date Name Performer f/u: H er updated medication list for this problem includes: Bystolic Tabs (Nebivolol hcl tabs) ..... 1 daily Paul Ward MD f/u Paul Kelley f/u Paul Kelley f/u: H er updated medication list for this problem includes: Bystolic Tabs (Nebivolol hcl tabs) ..... 1 daily Tribenzor 20-5-12.5 Mg Tabs (Koczicdxlm-wuicroufjg-jtuu) ..... 1 daily Orders: E KG ([id number]) Paul Ward MD f/u: H er updated medication list for this problem includes: Dexilant 60 Mg Cpdr (Dexlansoprazole) ..... 1 daily Zegerid Otc Caps (Omeprazole-sodium bicarbonate caps) ..... 1 daily Orders: S TR - Nuclear (06706) R enal Artery Duplex (CPT-[id number]) Paul Ward MD f/u: O rders: S TR - Nuclear (17060) R enal Artery Duplex (CPT-24525) Paul Ward MD Date Name Renal Artery Duplex Kidney Ultrasound Mobile Cardiac Tele STR - Nuclear HISTORY OF PROCEDURES Procedure Date Procedure Name Provider Procedure Notes S tatus EKG Paul Ward MD complet ed EKG Paul Ward MD complet ed
--- OUTSIDE RECORDS SUMMARY | 2024-10-13 11:22 | XMS_ITS | Clinical Summary ---
Author Organization [address] Address [address] [place] [address] Care Team Providers Care Sales Donor Recruitment Representative Name Role Phone Pola Navarro MD Primary Care Provider Rishi Darby Unavailable [phone] Vivek Barrow MD PhD Unavailable Teresa Lima MD Unavailable [phone] Allergies Active Allergy Reactions Criticality Noted Date Comments Shellfish Derived Anaphylaxis High 01/21/2019 Medications colchicine (COLCRYS) 0.6 mg tabletIndicati ons:acute gouty arthritis Take 1 tablet (0.6 mg total) by mouth as needed 4 Active fluticasone propionate (FLONASE) 50 mcg/actuation nasal [...] mouth daily 30 tablet 3 5 04/02/20 Active letrozole (FEMARA) 2.5 mg tablet Take 1 tablet (2.5 mg total) by mouth daily 30 tablet 5 5 10/04/19 Discontinu ed(Reorder ) Active Problems Problem Noted Date Diagnosed Date Malignant neoplasm of upper- outer quadrant of right breast in female, estrogen receptor positive 10/02/2024 Status post total left knee replacement 07/04/20 Primary osteoarthritis of right knee 04/10/2024 Resolved Problems Problem Noted Date Diagnosed Date Resolved Date Primary osteoarthritis of left knee 06/12/2024 07/04/2024 Arthritis of knee, left 04/10/202406/18 Encounters Date Type Department Care Team Description 10/11/2024 11:15 AM EDGE DYER Lab [facility] Office Building [address] [place] [address] Arrived 10/11/2024 10:00 AM [facility] - 10/11/2024 11:59 PM [facility] 1 Breast [facility] [address] [place] [address] Primary cancer of right female breast (HCC) Discharge Disposition: Discharge to home or self care 10/09/2024 11:45 AM EDGE DYER Lab [facility] Office Building [address] [place] [address] 10/04/2024 1:00 PM EDGE DYER Office Visit [facility] Oncology [address] [place] [address] [address] [place] [id number] Vivek Barrow MD PhD Malignant neoplasm of upper-outer quadrant of right breast in female, estrogen receptor positive (HCC) (Primary Dx); Malignant neoplasm of right female breast, unspecified estrogen receptor status, unspecified site of breast (HCC) 09/09/2024 Orders Only [facility] [address] [place] [address] Vivek Barrow MD PhD Malignant neoplasm of right female breast, unspecified estrogen receptor status, unspecified site of breast (HCC) 09/06/2024 9:15 AM EDGE DYER Office Visit [facility] [address] [place] [address] Linda Ortiz NP Status post total left knee replacement (Primary Dx); Risk for falls; Left knee pain, unspecified chronicity; Orthopedic aftercare; Altered gait 09/06/2024 Orders Only [facility] Oncology [address] [place] [address] Vivek Barrow MD PhD Malignant neoplasm of right female breast, unspecified estrogen receptor status, unspecified site of breast (HCC) (Primary Dx) 09/02/2024 Orders Only [facility] Surgery [address] [facility] Floor 8 [place] [id number] Aft, Senia Tierney MD PhD Abnormal mammogram (Primary Dx) 08/14/2024 12:05 AM EDGE DYER - 08/14/2024 11:59 PM EDGE DYER [facility] [address] [place] [address] Discharge Disposition: Discharge to home or self care 08/14/2024 - 08/14/2024 11:59 PM EDGE DYER [facility] [address] [place] [address] Discharge Disposition: Discharge to home or self care from Last 3 Months Surgical History Surgery Date Site/Laterality Comments US GUIDED ASPIRATION ABSCESS HEMATOMA CYST SOFT TISSUE 02/25/2019 N/A HYSTERECTOMY 09/18/1994 - 09/17/1995 CHOLECYSTECTOMY 09/18/1996 - 09/17/1997 BUNIONECTOMY TOTAL KNEE ARTHROPLASTY 06/12/2024 Left Medical History Medical History Date Comments Primary osteoarthritis of right knee Morbid obesity with BMI of 40.0-44.9, adult ([facility] ) BMI 40 Hypertension CKD (chronic kidney disease) stage 3, GFR 30-59 ml/min ([facility]) Secondary hyperparathyroidism of renal origin ([facility]) Osteoarthritis of knees, bilateral Arthritis Family History Medical History Relation Name Comments Lung cancer Mother Relation Name Status Comments Mother Social History Tobacco Use Types Packs/Day Years [...] on file Legal Sex Female 5:04 AM EDGE DYER Gender Identity Not on file Sexual Orientation Not on file Obstetrics History Last Filed Vital Signs Vital Sign Reading Time Taken Comments Blood Pressure 158/82 10/04/2024 1:43 PM EDGE DYER Pulse 82 10/04/2024 1:43 PM EDGE DYER Temperature 36.6 ??C (97.8 ??F) 10/04/2024 1:43 PM CS T Respiratory Rate 20 10/04/2024 1:43 PM EDGE DYER Oxygen Saturation 98% 10/04/2024 1:43 PM EDGE DYER Inhaled Oxygen Concentration - - Weight 91.6 kg (202 lb) 10/04/2024 1:43 PM EDGE DYER n o shoes Height 157.5 cm (5' 2 ) 10/04/2024 1:43 PM EDGE DYER n o shoes Body Mass Index 36.95 10/04/2024 1:43 PM EDGE DYER Plan of Treatment Health Maintenance Due Date Last Done Comments Breast Cancer Screening-Mammogram 1955 Colon Cancer Screening-Colonoscopy 1955 Depression Screening 1955 Hepatitis C Screening 1955 Osteoporosis Screening-Bone Density Scan 1955 DTaP/Tdap/Td Vaccine (1 - Tdap) 1964 Hepatitis B Screening 1971 Well Visit 65+ 2018 Pneumococcal vaccine 65+ (2 of 2 - PPSV23 or PCV20) 09/02/2021 07/08/2021 Covid-19 Vaccine (7 - 2023-2 5 season) 2024 09/20/2023, 07/12/2022, 07/08/2021, Additional history exists Influenza Vaccine (#1) 2024 09/20/2023, 2019 Fall Risk Assessment 06/13/2025 06/13/2024 Zoster Vaccine Completed 04/29/2022, 07/08/2021 Medical Devices Implanted Type Area [employer] Device Identifier Shelf Expiration Date Model / Serial / Lot [employer] Simplex P Radiopaque Full Dose Cement Bone Sterile 6191-1-010 - [id number] Implanted:Qty: 1 on 06/12/2024 by Doni Sharma MD at [facility] Left: Knee [employer] [id number] 04/17/2026 6191-1-010 / / [id number] [employer] Simplex P Radiopaque Full Dose Cement Bone Sterile 6191-1-010 - [id number] Implanted:Qty: 1 on 06/12/2024 by Doni Sharma MD at [facility] Left: Knee [employer] [id number] 04/17/2026 6191-1-010 / / [id number] [employer]/Or tho Nereida Ii [id number] Knee Oval Component Patellar Uhmwpe [id number] - [id number] Implanted:Qty: 1 on 06/12/2024 by Doni Sharma MD at [facility] Left: Knee [employer]/O rtho [id number] 02/11/2034 [id number] / / [id number] [employer]/Or tho Journey Bicruciate Stabilize Knee Left 4 Baseplate Tibial [id number] - [id number] Implanted:Qty: 1 on 06/12/2024 by Doni Sharma MD at [facility] Left: Knee [employer] rtho [id number] 02/24/2034 [id number] / / [id number] [employer]Or tho Journey Ii Cruciate Retain Knee Left 5 Component Femoral Oxinium [id number] - [id number] Implanted:Qty: 1 on 06/12/2024 by Doni Sharma MD at [facility] Left: Knee [employer]O rtho [id number] 02/23/2034 [id number] / / [id number] [employer]/Or tho Insert Tibial Knee Fixed Lm Articular Journey Ii 11mm Size 3-4 Xlpe [id number] - [id number] Implanted:Qty: 1 on 06/12/2024 by Doni Sharma MD at [facility] Left: Knee [employer]o [id number] 08/12/2033 [id number] / / [id number] Procedures Procedure Name Priority Date/Time Associated Diagnosis Comments US AXILLARY RIGHT Schedule Routine, Read Routine (OP Routine) 10/11/2024 11:11 AM EDGE DYER Primary cancer of right female breast (HCC) URINE CULTURE Routine 10/11/2024 10:30 AM EDGE DYER URINALYSIS AND REFLEX TO MICROSCOPIC AND CULTURE Routine 10/11/2024 10:30 AM EDGE DYER EGFR Routine 10/09/2024 11:52 AM EDGE DYER DIFFERENTIAL AUTO Routine 10/09/2024 11: 52 AM EDGE DYER COMPREHENSIVE METABOLIC PANEL Routine 10/09/2024 11:52 AM EDGE DYER CBC WITH AUTO DIFFERENTIAL Routine 10/09/2024 11:52 AM EDGE DYER SURGICAL PATHOLOGY Routine 09/09/2024 10 :21 AM EDGE DYER Malignant neoplasm of right female breast, unspecified estrogen receptor status, unspecified site of breast (HCC) BREAST IMAGING US OUTSIDE REFERENCE Routine 08/14/2024 12:05 AM EDGE DYER BREAST IMAGING MG DIAGNOSTIC OUTSIDE REFERENCE Routine 08/14/2024 12:00 AM EDGE DYER from Last 3 Months Results * US Axillary Breast Right (10/11/2024 11:11 AM EDGE DYER) Anatomical Region Laterality Modality Upper Extremities Right Ultrasound 10/11/2024 5:00 PM EDGE DYER Impressions 10/11/2024 5:00 PM EDGE DYER No evidence to suggest malignancy in the right axilla is seen. Known invasive primary in the right breast. OVERALL FINAL ASSESSMENT: BI-RADS 2-ujkbny-awkrwo malignancy. Electronically signed by: Kathryn Valles M.D. Narrative 10/11/2024 5:00 PM EDGE DYER PROCEDURE: ULTRASOUND AXILLARY BREAST RIGHT HISTORY: Known [...] the right breast. OVERALL FINAL ASSESSMENT: BI-RADS 2-beyqyz-hdaibc malignancy. Electronically signed by: Kathryn Valles M.D. Claudio Lara MD [facility] US PROCEDURES Final Result * Urinalysis reflex to microscopic and culture Urine (10/11/2024 10:30 AM EDGE DYER) Color, ur Yellow Yellow Comment:Testing performed by : [address] [address] Clarity, ur Clear Clear MIRELLA Comment:Testing performed by : [address], [place]., [address] Specific gravity, ur 1.012 1.003 - 1.030 MIRELLA Comment:Testing performed by : [address] [address] pH, urine 5.5 MIRELLA Comment: Interpretive Data ? Urine pH is affected by diet, medications, systemic acid-base disturbances, and renal tubular function. ??pH may affect urinary stone formation. ??For example, urine pH below 6.0 may help reduce the tendency for calcium phosphate stones and pH greater than 6.0 may reduce the tendency for uric acid stone formation. Source: [facility] 5minutes Current Interpretive Data was last revised on 2017 Testing performed by: [address] [address] Protein, ur ql Negative Negative MIRELLA Comment:Testing performed by : [address] [address] Glucose, ur ql Negative Negative MIRELLA Comment:Testing performed by : [address] [address] Ketones, ur Negative Negative MIRELLA Comment:Testing performed by : [address] [address] Bilirubin, ur Negative Negative MIRELLA Comment:Testing performed by : [address] [address] Blood, ur Negative Negative MIRELLA Comment:Testing performed by : [address] [address] Urobilinogen, ur <2.0 <2.0 mg/dL MIRELLA Comment:Testing performed by : [address] [address] Nitrite, ur Negative Negative MIRELLA Comment:Testing performed by : [address] [address] Leukocyte esterase, ur Negative Negative MIRELLA Comment:Testing performed by : [facility], [address] [place] [address]., [address] Urine 10/11/2024 10:3 0 AM EDGE DYER 10/11/2024 12:46 PM EDGE DYER Claudio Lara MD LAB MICROBIOLOGY - GENERAL ORD ERABLES Final Result Performing Organization Address [facility] de Phone Number [address] Department [place] [address] * Urine culture Urine (10/11/2024 10:30 AM EDGE DYER) Report Final Report: Less than 100,000 colonies/mL (clinically insignificant growth based on current clinical standards) Comment:Testing performed by : [facility], [address] [place]., [address] Organism (CLINICALLY INSIGNIFICANT GROWTH MIRELLA Urine 10/11/2024 10:3 0 AM EDGE DYER 10/11/2024 4:44 PM EDGE DYER Narrative [facility] - 10/13/2024 7:30 AM EDGE DYER Testing performed by [facility] Microbiology Laboratory ([phone]) Claudio Lara MD LAB MICROBIOLOGY - GENERAL ORD ERABLES Final Result Performing Organization Address [facility] de Phone Number [facility] [address] Department [place] [address] * (ABNORMAL) eGFR (10/09/2024 11:52 AM EDGE DYER) eGFR 12(L) >=60 mL/min/1. 73 m2 Comment: [...] was last reviewed 2021. Testing performed by: [address] [address] Blood 10/09/2024 11:5 2 AM EDGE DYER 10/09/2024 12:39 PM EDGE DYER us Claudio Lara MD LAB BLOOD ORDERABLES Final Res ult [facility] [address] Department [place] [address] * (ABNORMAL) Differential, auto (10/09/2024 11:52 AM EDGE DYER) Neutrophil abs 12.8(H) 1.5 - 6.5 K/cumm Comment:Testing performed by : [address] [address] Imm gran abs 0.3(H) 0.0 - 0.1 K/cumm MIRELLA Comment:Testing performed by : [address] [address] Lymphocyte abs 3.1 0.8 - 3.3 K/cumm MIRELLA Comment:Testing performed by : [address] [address] Monocyte abs 1.8(H) 0.2 - 0.8 K/cumm MIRELLA Comment:Testing performed by : [address] [address] Eosinophil abs 0.0 0.0 - 0.5 K/cumm [facility] Comment:Testing performed by : [address] [address] Basophil abs 0.0 0.0 - 0.1 K/cumm MIRELLA Comment:Testing performed by : [address] [address] Neutrophil pct 71.1 % [facility] Comment: Interpretive Data Percent cell count reference ranges are not reported, since discordance with absolute values may lead to misinterpretation of CBC data. Current Interpretive Data was last revised on 2017. Testing performed by: [address] [address] Imm gran pct 1.6 % [facility] Comment: Interpretive Data Percent cell count reference ranges are not reported, since discordance with absolute values may lead to misinterpretation of CBC data. Current Interpretive Data was last revised on 2017. Testing performed by: [address] [address] Lymphocyte pct 17.1 % [facility] Comment: Interpretive Data Percent cell count reference ranges are not reported, since discordance with absolute values may lead to misinterpretation of CBC data. Current Interpretive Data was last revised on 2017. Testing performed by: [address] [address] Monocyte pct 10.0 % [facility] Comment: Interpretive Data Percent cell count reference ranges are not reported, since discordance with absolute values may lead to misinterpretation of CBC data. Current Interpretive Data was last revised on 2017. Testing performed by: [address] [address] Eosinophil pct 0.0 % [facility] Comment: Interpretive Data Percent cell count reference ranges are not reported, since discordance with absolute values may lead to misinterpretation of CBC data. Current Interpretive Data was last revised on 2017. Testing performed by: [address] [address] Basophil pct 0.2 % [facility] Comment: Interpretive Data Percent cell count reference ranges are not reported, since discordance with absolute values may lead to misinterpretation of CBC data. Current Interpretive Data was last revised on 2017. Testing performed by: [address] [address] Blood 10/09/2024 11:5 2 AM EDGE DYER 10/09/2024 12:40 PM EDGE DYER us Claudio Lara MD LAB BLOOD ORDERABLES Final Res ult [facility] [address] Department [place] [address] * (ABNORMAL) CBC with auto differential (10/09/2024 11:52 AM EDGE DYER) WBC 18.1(H) 3.8 - 9.9 K/cumm Comment:Testing performed by : [address] [address] Hgb 11.9 11.9 - 15.5 g/dL MIRELLA Comment:Testing performed by : [address] [address] Hct 37.8 35.6 - 45.5 % MIRELLA Comment:Testing performed by : [address] [address] Plt 348 150 - 400 K/cumm MIRELLA Comment:Testing performed by : [address] [address] MPV 10.0 9.1 - 12.3 fL MIRELLA Comment:Testing performed by : [address] [address] RBC 4.17 3.90 - 5.20 M/cumm MIRELLA Comment:Testing performed by : [address] [address] MCV 90.6 81.3 - 96.4 fL MIRELLA Comment:Testing performed by : [address] [address] MCH 28.5 27.1 - 33.3 pg MIRELLA MARK Comment:Testing performed by : [address] [address] MCHC 31.5(L) 32.3 - 35.7 g/dL MIRELLA MARK Comment:Testing performed by : [address] [address] RDW CV 15.9(H) 11.1 - 14.9 % MIRELLA MARK Comment:Testing performed by : [address] [address] RDW SD 52.8(H) 35.7 - 48.1 fL MIRELLA MARK Comment:Testing performed by : [address] [address] NRBC abs 0.00 0.00 - 0.01 K/cumm MIRELLA MARK Comment:Testing performed by : [address] [address] Blood 10/09/2024 11:5 2 AM EDGE DYER 10/09/2024 12:40 PM EDGE DYER Claudio Lara MD LAB BLOOD ORDERABLES Final Res ult MIRELLA [facility] Department [place] [address] * (ABNORMAL) Comprehensive metabolic panel (10/09/2024 11:52 AM EDGE DYER) Sodium 139 135 - 145 mmol/L Comment:Testing performed by : [address] [address] Potassium, pl 4.2 3.3 - 4.9 mmol/L MIRELLA MARK Comment:Testing performed by : [address] [address] Chloride 100 97 - 110 mmol/L MIRELLA MARK Comment:Testing performed by : [address] [address] CO2 25 22 - 32 mmol/L MIRELLA MARK Comment:Testing performed by : [address] [address] Anion gap 14 2 - 15 mmol/L MIRELLA MARK Comment:Testing performed by : [address] [address] BUN 53(H) 6 - 25 mg/dL [facility] Comment:Testing performed by : [address] [address] Creatinine 3.94(H) 0.60 - 1.10 mg/dL MIRELLA Comment:Testing performed by : [address] [address] Glucose 81 70 - 199 mg/dL MIRELLA Comment: Interpretive Data Fasting glucose >/= 126 [...] classification and Diagnosis of Diabetes Diabetes Care 2021; 46: S19-S40. Current interpretive data was last revised 2022. Testing performed by: [address] [address] Calcium 9.8 8.5 - 10.3 mg/dL [facility] Comment:Testing performed by : [address] [address] Bilirubin, total 0.3 0.1 - 1.2 mg/dL [facility] Comment:Testing performed by : [address] [address] Protein, pl 7.7 6.5 - 8.5 g/dL [facility] Comment:Testing performed by : [address] [address] Albumin 4.0 3.5 - 5.0 g/dL [facility] Comment:Testing performed by : [address] [address] Alk phos 65 40 - 130 Units/L MIRELLA Comment:Testing performed by : [address] [address] ALT 7 7 - 45 Units/L MIRELLA Comment:Testing performed by : [address] [address] AST 21 10 - 45 Units/L MIRELLA MARK Comment:Testing performed by : [facility], [address] [place] [address], [place]., [address] Blood 10/09/2024 11:5 2 AM EDGE DYER 10/09/2024 12:39 PM EDGE DYER us Claudio Lara MD LAB BLOOD ORDERABLES Final Res ult MIRELLA [address] Department [place] [address] * Surgical pathology (09/09/2024 10:21 AM EDGE DYER) Tissue (Miscellaneous) 09/09/2024 10:21 AM EDGE DYER 09/09/2024 10:21 AM EDGE DYER Narrative [facility] PATH[facility] - 09/27/2024 10:55 AM EDGE DYER EPIC results best viewed via link to PDF [facility] Pathology Consult Service [facility] [address], [place] [address] Note to Patients: This report [...] SURGICAL PATHOLOGY REPORT * Consult Report * [facility] is providing an additional review of previously collected tissue. FINAL Patient Name: ??CHANELL GARCIA Address: ??[address] [place] [address], ?[place], [place] ??[address] Gender: ??F : ??1955 (Age: 68) Hospital #: ??[id number] Patient Type: ??WU Location: ??UNKNOWN Taken: ??09/09/2024 Received: ??09/09/2024 Accessioned: ??09/09/2024 Reported: ??09/27/2024 Physician(s): Vivek Barrow M.D. [facility] Department of Pathology [address] [place] [address] P: [phone] F: [phone] Histology: [phone] Diagnosis: Consult material received from [place], [place] (OSC: [id number]; 08/14/2024). ?? Right breast mass at 10:00, [...] the following: ER positive (Feliberto score 7/8), IN positive (Feliberto score 7/8), HER2 negative (score 0), and Ki67 < 10%. History: The patient is a 68-year-old woman with history of malignant neoplasm of right breast. Materials Received: Received for review are seven slides labeled [id number], accompanied by a corresponding pathology report. The material originates from [place], [place]. Selected slide(s) may be digitally scanned for our files, and all materials are returned to the referring institution, along with a copy of our final report. Any testing required for diagnostic purposes was performed in the Department of Pathology and Immunology at [facility], [address] [place] [address]. [place] [address] CLIA # [id number] The performance characteristics of the testing cited in this report (if any) were determined by the ??[facility] Department of Pathology and Immunology [facility], as part of an ongoing software quality engineer program and in compliance with federally mandated [...] and the performance characteristics determined by the [facility], [facility] Department of Pathology and Immunology. ??It has not been cleared or approved by the U.S. Food and Drug Administration. ??Any test designated as LDT was developed and its performance characteristics determined by [facility]. It has not been cleared or approved by the FDA. This test is used for clinical purposes and should not be regarded as investigational or for research. Report images and/or scanned reports, if included, only viewable in PDF version of report. Vivek Barrow MD PhD LAB PATHOLOGY ORDERABLES Final R esult Performing Organization Address [facility] Co de Phone Number [facility] [address] [address] * Breast Imaging US Outside Reference (08/14/2024 12:05 AM EDGE DYER) Narrative [facility] - 10/10/2024 9:39 AM EDGE DYER This order has been auto-finalized and does not contain a result. us Provider Transcribed Order IMG MAMMO PROCEDURES Final Result Performing Organization Address [facility] de Phone Number [email or web address] * Breast Imaging Diagnostic Outside Reference (08/14/2024 12:00 AM EDGE DYER) Narrative [facility] - 10/10/2024 9:39 AM EDGE DYER This order has been auto-finalized and does not contain a result. us Provider Transcribed Order IMG MAMMO PROCEDURES Final Result Performing Organization Address [facility] de Phone Number RAD_CLARIO_MHB_MHE from Last 3 Months Insurance [employer] MEDICARE [facility] [place] [id number] [facility] MEDICARE [facility] MEDIC[facility] Advance Directives For more information, please contact: [phone] * Full Code (Latest Code Status on File) Date Activated Date Inactivated Comments 06/12/2024 3:06 PM 06/13/2024 7:05 PM Care Teams Sales Donor Recruitment Representative Relationship Specialty Start Date End Date Pola Navarro MD [address] [employer] [address] [facility] [address] [place] [address] PCP - General Family Medicine 04/03/24 Rishi Darby PA [address] [place] [address] [address] [facility] [address] [place] [address] Referring Physician Physician Motor Vehicle Salesperson 09/02/24 [place] [address] [place] [address] [address] [address] Medical Oncologist/Storage Battery Inspector Medical Oncology 10/02/24 Teresa Lima MD [address] [facility] [address] [place] [address] Referring Physician Nephrology 10/04/24
--- OUTSIDE RECORDS SUMMARY | 2024-10-13 11:22 | XMS_ITS | Clinical Summary ---
Author Organization [facility] [employer] Address [address] [place] [address] Care Team Providers Care Brim Stitcher Name Role Phone Tre Troy MD Primary Care Provider [phone] Source Comments [facility],non-[facility] Affiliates and Associated Physician Practices is amultiple site organization consisting of ambulatory clinics and hospital sitesin [place], [place], [place] and [place]. This disclosure is being madepursuant to the Care Everywhere program and may not contain all information available regarding this patient. Last updated 18.[facility] [employer] Allergies Active Allergy Reactions Criticality Noted Date Comments Shellfish-Derived Products Anaphylaxis High Medications * Be aware that medications may not be up to date on this document. Alwaysverify current medications with the patient. Medication Sig Dispensed Refills Start Date End Date Status olmesartan-amLODIPin e-HCTZ (TRIBENZOR) 40-10-25 MG tablet olmesartan 40 mg-amlodipine 10 mg-hydrochlorothiazi de 25 mg tablet Active venlafaxine XR 24hr (EFFEXOR XR) 150 MG capsule venlafaxine ER 150 mg capsule,extended release 24 hr Active febuxostat (ULORIC) 40 MG tablet 02/25/2015 Active nebivolol (BYSTOLIC) 5 MG tablet Take 5 mg by mouth once daily Active Active Problems No known active problems Family History Medical History Relation Name Comments Hypertension Brother Hypertension Mother Hypertension Sister Relation Name Status Comments Brother Mother Sister Social History Tobacco Use Types Packs/Day Years Used Date Smoking Tobacco: Never Smokeless Tobacco: Never Alcohol Use Standard Drinks/Week Comments Yes 0 (1 standard drink = 0.6 oz pur e alcohol) occasional Sex and Gender Information Value Date Recorded Sex Assigned at Not on file Gender Identity Not on file Sexual Orientation Not on file Last Filed Vital Signs Vital Sign Reading Time Taken Comments Blood Pressure 132/80 02/26/2019 8:46 AM CDT Pulse - - Temperature - - Respiratory Rate - - Oxygen Saturation - - Inhaled Oxygen Concentration - - Weight 104.3 kg (230 lb) 02/26/2019 8:46 AM CDT Height 154.9 cm (5' 1 ) 02/26/2019 8:46 AM CDT Body Mass Index 43.46 02/26/2019 8:46 AM CDT Plan of Treatment Health Maintenance Due Date Last Done Comments BONE DENSITY TESTING 1955 COLOGUARD (AGES 45-75) - COL ON CA SCREENING 1955 COLON MONITORING 1953 COLONOSCOPY - COLON CA SCREENING 1953 CT COLONOGRAPHY - COLON CA SCREENING 1953 Colorectal Cancer Screening 1953 FIT - COLON CA SCREENING 1953 FLEX SIG - COLON CA SCREENING 1953 LIPID TESTING 1953 MAMMOGRAM 1953 HEPATITIS C SCREENING 09/20/1971 DTAP/TDAP/TD VACCINES (1 - Tdap) 1972 PNEUMOCOCCAL VACCINE 50+ (1 of 1 - PCV) 2003 ZOSTER VACCINE (1 of 2) 2003 Respiratory Syncytial Virus (RSV) Vaccine Pt: or over 60 yrs (1 - Risk 60-74 years 1-dose series) 2013 SCREENING FOR DIABETES 09/06/2018 COVID-19 VACCINE ( - 2023-2 5 season) 2024 INFLUENZA VACCINE (#1) 2024 DEPRESSION SCREENING 09/18/2024 MEDICARE AWV ? CALENDAR YEAR 2024 HEPATITIS B VACCINE Aged Out No longe r eligible based on patient's age to complete this topic HIB VACCINE Aged Out No longer eligi ble based on patient's age to complete this topic HPV VACCINE Aged Out No longer eligi ble based on patient's age to complete this topic MENINGOCOCCAL (Group B) VACCINE Aged Out No longer eligible based on patient's age to complete this topic MENINGOCOCCAL VACCINE Aged Out No bakari sapna eligible based on patient's age to complete this topic Care Teams Brim Stitcher Relationship Specialty Start Date End Date Tre Troy MD [address] [place] [address] PCP - General 09/04/18
--- OUTSIDE RECORDS SUMMARY | 2024-10-13 11:22 | XMS_ITS | Encounter Summary ---
Author Organization [facility] Address [address] [place] [address] Care Team Providers Care Plumbing Assembler Name Role Phone Pola Navarro MD Primary Care Provider Rishi Darby PA Unavailable [phone] Vivek Barrow MD PhD Unavailable Teresa Lima MD Unavailable Reason for Referral * Diagnostic Imaging (Routine) - Closed Specialty Diagnoses / Procedures Referred By Aminah wu Referred To Contact Diagnoses Primary cancer of right female breast (HCC) Procedures US Axillary Breast Right Claudio Lara MD [address] [place] [address] Phone: tel: fax: [address] [address] Referral ID Status Reason Start Date Expiration Date Visits Re quested Visits Authorized [id number] Closed 10/09/2024 11/08/2025 1 1 TER MACHINE OPERATOR Reason for Visit * Diagnostic Imaging (Routine) - Closed Specialty Diagnoses / Procedures Referred By Aminah wu Referred To Contact Diagnoses Primary cancer of right female breast (HCC) Procedures US Axillary Breast Right Claudio Lara MD [address] [place] [address] Phone: tel: fax: [facility] [address] [place] [address] Referral ID Status Reason Start Date Expiration Date Visits Re quested Visits Authorized [id number] Closed 10/09/2024 11/08/2025 1 1 Encounter Details Date Type Department Care Team (Latest Contact Info) Description 10/11/2024 10:00 AM PLASTER MACHINE OPERATOR - 10/11/2024 11:59 PM PLASTER MACHINE OPERATOR Hospital Encounter [facility] Medical Office Bldg 1 [facility] [address] [facility] [facility] [address] [place] [address] Primary cancer of right female breast (HCC) Discharge Disposition: Discharge to home or self care Social History Tobacco Use Types Packs/Day Years Used Date Smoking Tobacco: Never OASIS D0700: Social Isolation Answer Da te [...] on file Legal Sex Female 5:04 AM PLASTER MACHINE OPERATOR Gender Identity Not on file Sexual Orientation Not on file documented as of this encounter Medications at Time of Discharge colchicine (COLCRYS) 0.6 mg tabletIndication s:acute gouty arthritis Take 1 tablet (0.6 mg total) by mouth as needed 01/11/2024 dexlansoprazole (Dexilant) 60 mg capsule DEXILANT 60 MG ORAL CAPSULE DELAYED RELEASE febuxostat (ULORIC) 40 mg tablet Take 1 tablet (40 mg total) by mouth daily 09/03/2024 fluticasone propionate (FLONASE) 50 mcg/actuation nasal sprayIndications :Allergic Rhinitis 1 spray each nostril daily as needed congestion 06/16/2024 letrozole (FEMARA) 2.5 mg tablet Take 1 tablet (2.5 mg total) by mouth daily 30 tablet 3 10/04/2024 nebivoloL (BYSTOLIC) 5 mg tabletIndication s:hypertension Take 1 tablet (5 mg total) by mouth every morning olmesartan-amLOD IPin-hcthiazid 20-5-12.5 mg tabletIndication s:hypertension Take 1 tablet/capsule by mouth every morning 01/11/2024 venlafaxine XR (EFFEXOR-XR) 150 mg 24 hr capsuleIndicatio ns:major depressive disorder Take 1 capsule (150 mg total) by mouth every morning documented as of this encounter Discharge Disposition Disposition Code Departure Means Destination Discharge to home or self care documented in this encounter Plan of Treatment Not on file documented as of this encounter Procedures Procedure Name Priority Date/Time Associated Diagnosis Comments US AXILLARY RIGHT Schedule Routine, Read Routine (OP Routine) 10/11/2024 11:11 AM PLASTER MACHINE OPERATOR Primary cancer of right female breast (HCC) documented in this encounter Results * US Axillary Breast Right (10/11/2024 11:11 AM PLASTER MACHINE OPERATOR) Anatomical Region Laterality Modality Upper Extremities Right Ultrasound 10/11/2024 5:00 PM PLASTER MACHINE OPERATOR Impressions 10/11/2024 5:00 PM PLASTER MACHINE OPERATOR No evidence to suggest malignancy in the right axilla is seen. Known invasive primary in the right breast. OVERALL FINAL ASSESSMENT: BI-RADS 3-ughrui-ehpvjn malignancy. Electronically signed by: Benja Ramirez 10/11/2024 5:00 PM PLASTER MACHINE OPERATOR PROCEDURE: ULTRASOUND AXILLARY BREAST RIGHT HISTORY: Known [...] the right breast. OVERALL FINAL ASSESSMENT: BI-RADS 3-wlhiqa-wbnrcp malignancy. Electronically signed by: Kathryn Valles M.D. Claudio Lara MD IM US PROCEDURES Final Result documented in this encounter Visit Diagnoses Diagnosis Primary cancer of right female breast (HCC) documented in this encounter Care Teams Plumbing Assembler Relationship Specialty Start Date End Date Pola Navarro MD [address] [place] [address] PCP - General Family Medicine 04/03/24 Rishi Darby PA [address] [place] [address] Referring Physician Physician Service Coordinator Elderly Facility 09/02/24 Vivek Barrow [place] PhD [address] [place] [address] [address] [place] [address] Medical Oncologist/Instrument Technologist Medical Oncology 10/02/24 Teresa Lima MD [address] [facility] [address] [place] [address] Referring Physician Nephrology 10/04/24 documented as of this encounter
--- OUTSIDE RECORDS SUMMARY | 2024-10-13 11:22 | XMS_ITS | Patient Health Summary ---
Author Organization [facility] Address [address] [place] [address] Care Team Providers Care Construction Project Engineer Name Role Phone Tre Troy MD Primary Care Provider [phone] Note from [facility],non-owned Affiliates and Associated Physician Practices is amultiple site organization consisting of ambulatory clinics and hospital sitesin [place], [place], [place] and [place]. This disclosure is being madepursuant to the Care Everywhere program and may not contain all information available regarding this patient. Last updated 18.[facility] Allergies * Shellfish-Derived Products(Anaphylaxis) -High Criticality Medications * Be aware that medications may not be up to date on this document. Alwaysverify current medications with the patient. * yxgorzuvbx-ujMPKYGwju-SDFD (TRIBENZOR) 40-10-25 MG tablet olmesartan 40 mg-amlodipine 10 mg-hydrochlorothiazide 25 mg tablet * venlafaxine XR 24hr (EFFEXOR XR) 150 MG capsule venlafaxine ER 150 mg capsule,extended release 24 hr * febuxostat (ULORIC) 40 MG tablet(Started 02/25/2015) * nebivolol (BYSTOLIC) 5 MG tablet Take 5 mg by mouth once daily Active Problems No known active problems Social History Tobacco Use Types Packs/Day Years [...] Mass Index 43.46 02/26/2019 8:46 AM CDT Care Teams Construction Project Engineer Relationship Specialty Start Date End Date rTe Troy MD [address] [place] [address] PCP - General 09/04/18
--- OUTSIDE RECORDS SUMMARY | 2024-10-13 11:22 | XMS_ITS | Referral Summary ---
Author Organization [facility] [employer] Address [address] [place] [address] Care Team Providers Care Quality Officer Name Role Phone Tre Troy MD Primary Care Provider [phone] Source Comments [facility],non-[facility] Affiliates and Associated Physician Practices is amultiple site organization consisting of ambulatory clinics and hospital sitesin [place], [place], [place] and [place]. This disclosure is being madepursuant to the Care Everywhere program and may not contain all information available regarding this patient. Last updated 18.[facility] [employer] Allergies Active Allergy Reactions Criticality Noted Date [...] Active Active Problems No known active problems Social [...] 02/26/2019 8:46 AM CDT Plan of Treatment Not on file Care Teams Quality Officer Relationship Specialty Start Date End Date Tre Troy MD [address] [place] [address] PCP - General 09/04/18
--- OUTSIDE RECORDS SUMMARY | 2024-10-13 11:23 | XMS_ITS | Clinical Summary ---
Author Organization [facility] Address [address] [place] [address] Phone Care Team Providers Care Computer Art Instructor Name Role Phone Pola Navarro MD Primary Care Provider [phone] Allergies Active Allergy Reactions Criticality Noted Date Comments Shellfish-Derived Products Anaphylaxis High Medications Medication Sig Dispensed Refills Start Date End Date Status betamethasone valerate (VALISONE) 0.1 % cream betamethasone valerate 0.1 % topical cream Active cetirizine (ZyrTEC ALLERGY) 10 MG tablet daily Active fluocinolone (VANOS) 0.01 % cream Synalar 0.01 % topical cream APPLY A THIN LAYER TO THE AFFECTED AREA(S) BY TOPICAL ROUTE 2-4 TIMESDAILY Active Olmesartan-amLODIPi ne-HCTZ 40-10-25 MG tablet olmesartan 40 mg-amlodipine 10 mg-hydrochlorothiazid e 25 mg tablet Active phentermine 37.5 MG capsule phentermine 37.5 mg capsule Active traMADol (ULTRAM) 50 MG tablet tramadol 50 mg tablet A ctive venlafaxine XR (EFFEXOR-XR) 150 MG 24 hr capsule venlafaxine ER 150 mg capsule,extended release 24 hr Active Febuxostat (ULORIC) 40 MG tablet Uloric 40 mg tablet Take 1 tablet(s) every day by oral route. 06/24/2018 Active fluticasone (FLONASE) 50 MCG/ACT nasal spray fluticasone propionate 50 mcg/actuation nasal spray,suspension Active nebivolol (BYSTOLIC) 10 MG tablet Bystolic 10 mg tablet Act clemente predniSONE (DELTASONE) 20 MG tablet prednisone 20 mg tablet Active mupirocin (BACTROBAN) 2 % ointment APPLY TO THE AFFECTED AREA(S) TWICE DAILY 11/10/2020 Active pantoprazole (PROTONIX) 40 MG EC tablet Take 40 mg by mouth 1 (one) time each day in the morning 05/04/2021 Active HYDROcodone-acetami nophen (NORCO) 5-325 MG per tablet Take 1 tablet by mouth every 8 (eight) hours if needed 10/22/2021 Active cyclobenzaprine (FLEXERIL) 10 MG tablet TAKE 1 TABLET BY MOUTH AT BEDTIME NEEDED FOR MUSCLE SPASM 12/13/2021 Active Active Problems Problem Noted Date Diagnosed Date FH: Hypertension 06/14/2021 Hyperlipidemia 01/04/2017 Prediabetes 01/04/2017 Chronic kidney disease, stage 3 (moderate) 07/27 Obesity 07/13/2016 Vitamin D deficiency 03/08/2016 Impaired glucose tolerance 09/15/2015 Hypertensive chronic kidney disease with stage 1 through stage 4 chronic kidney disease, or unspecified chronic kidney disease 07/01/2015 Palpitations 09/18/2014 Chronic kidney disease, stage 2 (mild) 4 Gout 06/01/2014 Essential hypertension 06/01/2014 Gastroesophageal reflux disease 06/01/2014 Osteoarthritis 06/01/2014 Overview (04/28/2019): Converted unresolved ICD9, potential mismatch. Immunizations Name Administration Dates Next Due Influenza, Injectable, Quadrivalent 07/20/2020 Sars-cov-2, Unspecified 03/26/2021 Family History Medical History Relation Comments Diabetes mellitus Father Hypertensive disorder Mother Malignant neoplastic disease Mother Hypertensive disorder Sibling Kidney disease Sibling Malignant neoplastic disease Sibling Kidney stone Neg Hx Relation Status Comments Father Mother Sibling Social History Tobacco Use Types Packs/Day Years Used Date Smoking Tobacco: Never Smokeless Tobacco: Never Tobacco Cessation:Counseling Given: Not Answered Alcohol Use Standard Drinks/Week Comments No 0 (1 standard drink = 0.6 oz pur e alcohol) Sex and Gender Information Value Date Recorded Sex Assigned at Not on file Gender Identity Not on file Sexual Orientation Not on file Last Filed Vital Signs Vital Sign Reading Time Taken Comments Blood Pressure 136/80 07/25/2022 1:49 PM SCRAP MATERIALS BUYER Pulse - - Temperature 36.3 ??C (97.4 ??F) 07/25/2022 1:49 PM CS T Respiratory Rate 18 07/25/2022 1:49 PM SCRAP MATERIALS BUYER Oxygen Saturation - - Inhaled Oxygen Concentration - - Weight 94.8 kg (209 lb) 07/25/2022 1:49 PM SCRAP MATERIALS BUYER Height 157.5 cm (5' 2 ) 07/25/2022 1:49 PM SCRAP MATERIALS BUYER Body Mass Index 38.23 07/25/2022 1:49 PM SCRAP MATERIALS BUYER Plan of Treatment Health Maintenance Due Date Last Done Comments Pneumococcal PPSV23/PCV13 65 + Years / High and Highest Risk (1 of 4 - PCV) 1961 Influenza Vaccine (#1) 2024 Care Teams Computer Art Instructor Relationship Specialty Start Date End Date Pola Navarro MD [address] [place] [address] PCP - General Internal Medicine 10/16/19
[2024-10-13 11:44] VITALS: BP 105/58; PULSE 102; RESP 16; TEMP 36.2; O2SAT 99
--- OUTSIDE RECORDS SUMMARY | 2024-10-13 12:56 | XMS_ITS | Encounter Summary ---
Author Organization [facility] Healthcare Address [address] [place] [address] Care Team Providers Care Administrative Manager Name Role Phone Pola Navarro MD Primary Care Provider Rishi Darby PA Unavailable Vivek Barrow MD PhD Unavailable Teresa Lima MD Unavailable [phone] Reason for Referral * Diagnostic Imaging (Routine) - Closed Specialty Diagnoses / Procedures Referred By Aminah wu Referred To Contact Diagnoses Primary cancer of right female breast (HCC) Procedures US Axillary Breast Right Claudio Lara MD [address] [place] [address] Phone: tel: fax: [address] [address] Referral ID Status Reason Start Date Expiration Date Visits Re quested Visits Authorized [id number] Closed 10/09/2024 11/08/2025 1 1 ATRIC AIDE Reason for Visit * Diagnostic Imaging (Routine) - Closed Specialty Diagnoses / Procedures Referred By Aminah wu Referred To Contact Diagnoses Primary cancer of right female breast (HCC) Procedures US Axillary Breast Right Claudio Lara MD [address] [place] [address] Phone: tel: fax: [facility] [address] [place] [address] Referral ID Status Reason Start Date Expiration Date Visits Re quested Visits Authorized [id number] Closed 10/09/2024 11/08/2025 1 1 Encounter Details Date Type Department Care Team (Latest Contact Info) Description 10/11/2024 10:00 AM PODIATRIC AIDE - 10/11/2024 11:59 PM PODIATRIC AIDE Hospital Encounter [facility] Medical Office Bldg 1 [facility] [address] [facility] [address] [place] [address] Primary cancer of right female breast [...] on file Legal Sex Female 5:04 AM PODIATRIC AIDE Gender Identity Not on file Sexual Orientation [...] Read Routine (OP Routine) 10/11/2024 11:11 AM PODIATRIC AIDE Primary cancer of right female breast (HCC) documented in this encounter Results * US Axillary Breast Right (10/11/2024 11:11 AM PODIATRIC AIDE) Anatomical Region Laterality Modality Upper Extremities Right Ultrasound 10/11/2024 5:00 PM PODIATRIC AIDE Impressions 10/11/2024 5:00 PM PODIATRIC AIDE No evidence to suggest malignancy in the right axilla is seen. Known invasive primary in the right breast. OVERALL FINAL ASSESSMENT: BI-RADS 3-[id number]-ljcxgt malignancy. Electronically signed by: Benja Ramirez 10/11/2024 5:00 PM PODIATRIC AIDE PROCEDURE: ULTRASOUND AXILLARY BREAST RIGHT HISTORY: Known [...] the right breast. OVERALL FINAL ASSESSMENT: BI-RADS 2-gfvwom-oyoauc malignancy. Electronically signed by: Kathryn Valles M.D. Claudio Lara MD IM US PROCEDURES Final Result documented in this encounter Visit Diagnoses Diagnosis Primary cancer of right female breast (HCC) documented in this encounter Care Teams Administrative Manager Relationship Specialty Start Date End Date Pola Navarro MD [address] [place] [address] PCP - General Family Medicine 04/03/24 Rishi Darby PA [address] [place] [address] Referring Physician Physician Customer Relations Specialist 09/02/24 [place] [address] [place] [address] [address] [place] [address] Medical Oncologist/House Piping Inspector Medical Oncology 10/02/24 Teresa Lima MD [address] [facility] [address] [place] [address] Referring Physician Nephrology 10/04/24 documented as of this encounter
--- OUTSIDE RECORDS SUMMARY | 2024-10-13 12:56 | XMS_ITS | Clinical Summary ---
Author Organization [address] Address 5 [place] [address] Care Team Providers Care Sports Medicine Trainer Name Role Phone Pola Navarro MD Primary Care Provider Rishi Darby Unavailable [phone] Vivek Barrow MD PhD Unavailable Teresa Lima MD Unavailable [phone] Allergies Active Allergy Reactions Criticality Noted [...] Department Care Team Description 10/11/2024 11:15 AM BREAD PACKER Lab [facility] Office Building [address] [place] [address] Arrived 10/11/2024 10:00 AM [facility] - 10/11/2024 11:59 PM [facility] Hospital Encounter [facility] Medical Office Bldg 1 Breast [facility] [address] [facility] [address] [place] [address] Primary cancer of right female breast (HCC) Discharge Disposition: Discharge to home or self care 10/09/2024 11:45 AM BREAD PACKER Lab [facility] Office Building [address] [place] [address] 10/04/2024 1:00 PM BREAD PACKER Office Visit [facility] Physicians [facility] Oncology [address] [place] [address] [address] [place] [id number] Vivek Barrow MD PhD Malignant neoplasm of upper-outer quadrant of right breast in female, estrogen receptor positive (HCC) (Primary Dx); Malignant neoplasm of right female breast, unspecified estrogen receptor status, unspecified site of breast (HCC) 09/09/2024 Orders Only [facility] [address] [place] [address] Vivek Barrow MD PhD Malignant neoplasm of right female breast, unspecified estrogen receptor status, unspecified site of breast (HCC) 09/06/2024 9:15 AM BREAD PACKER Office Visit [facility] [address] [facility] [address] [place] [address] Linda Ortiz NP Status post total left knee replacement (Primary Dx); Risk for falls; Left knee pain, unspecified chronicity; Orthopedic aftercare; Altered gait 09/06/2024 Orders Only [facility] Oncology [address] [facility] [address] [place] [address] Vivek Barrow MD PhD Malignant neoplasm of right female breast, unspecified estrogen receptor status, unspecified site of breast (HCC) (Primary Dx) 09/02/2024 Orders Only [facility] Surgery [address] [facility] Floor 8 [place] [phone] Aft, Senia Tierney MD PhD Abnormal mammogram (Primary Dx) 08/14/2024 12:05 AM BREAD PACKER - 08/14/2024 11:59 PM BREAD PACKER Hospital Encounter [facility] Outside Images [address] [place] [address] Discharge Disposition: Discharge to home or self care 08/14/2024 - 08/14/2024 11:59 PM BREAD PACKER Hospital Encounter [facility] Outside Images [address] [place] [address] Discharge Disposition: Discharge to home or self care from Last 3 Months Surgical History Surgery Date Site/Laterality Comments US GUIDED ASPIRATION ABSCESS HEMATOMA CYST SOFT TISSUE 02/25/2019 N/A HYSTERECTOMY 09/18/1994 - 09/17/1995 CHOLECYSTECTOMY 09/18/1996 - 09/17/1997 BUNIONECTOMY TOTAL KNEE ARTHROPLASTY 06/12/2024 Left Medical History Medical History Date Comments Primary osteoarthritis of right knee Morbid obesity with BMI of 40.0-44.9, adult ([facility] ) BMI 40 Hypertension CKD (chronic kidney disease) stage 3, GFR 30-59 ml/min ([facility]) Secondary hyperparathyroidism of renal origin ([facility]) [...] on file Legal Sex Female 5:04 AM BREAD PACKER Gender Identity Not on file Sexual Orientation Not on file Obstetrics History Last Filed Vital Signs Vital Sign Reading Time Taken Comments Blood Pressure 158/82 10/04/2024 1:43 PM BREAD PACKER Pulse 82 10/04/2024 1:43 PM BREAD PACKER Temperature 36.6 ??C (97.8 ??F) 10/04/2024 1:43 PM CS T Respiratory Rate 20 10/04/2024 1:43 PM BREAD PACKER Oxygen Saturation 98% 10/04/2024 1:43 PM BREAD PACKER Inhaled Oxygen Concentration - - Weight 91.6 kg (202 lb) 10/04/2024 1:43 PM BREAD PACKER n o shoes Height 157.5 cm (5' 2 ) 10/04/2024 1:43 PM BREAD PACKER n o shoes Body Mass Index 36.95 10/04/2024 1:43 PM BREAD PACKER Plan of Treatment Health Maintenance Due Date [...] 04/29/2022, 07/08/2021 Medical Devices Implanted Type Area Cassandra Architect Device Identifier Shelf Expiration Date Model / Serial / Lot [employer] Simplex P Radiopaque Full Dose Cement Bone Sterile 6191-1-010 - [id number] Implanted:Qty: 1 on 06/12/2024 by Doni Sharma MD at [facility] Left: Knee [employer] [id number] 04/17/2026 6191-1-010 / / [id number] [employer] Simplex P Radiopaque Full Dose Cement Bone Sterile 6191-1-010 - [id number] Implanted:Qty: 1 on 06/12/2024 by Doni Sahrma MD at [facility] Left: Knee [employer] [id number] 04/17/2026 6191-1-010 / / [id number] [employer]/Or tho Nereida Ii [id number] Knee Oval Component Patellar Uhmwpe [id number] - [id number] Implanted:Qty: 1 on 06/12/2024 by Doni Sharma MD at [facility] Left: Knee [employer]/O rtho [id number] 02/11/2034 [id number] / / [id number] [employer]/Or tho Journey Bicruciate Stabilize Knee Left 4 Baseplate Tibial [id number] - [id number] Implanted:Qty: 1 on 06/12/2024 by Doni Sharma MD at [facility] Left: Knee [employer]/O rtho [id number] 02/24/2034 [id number] / / [id number] [employer]/Or tho Journey Ii Cruciate Retain Knee Left 5 Component Femoral Oxinium [id number] - [id number] Implanted:Qty: 1 on 06/12/2024 by Doni Sharma MD at [facility] Left: Knee [employer] rtho [id number] 02/23/2034 [id number] / / [id number] [employer]/Or tho Insert Tibial Knee Fixed Lm Articular Journey Ii 11mm Size 3-4 Xlpe [id number] - [id number] Implanted:Qty: 1 on 06/12/2024 by Doni Sharma MD at [facility] Left: Knee [employer]o [id number] 08/12/2033 [id number] / / [id number] Procedures Procedure Name Priority Date/Time Associated Diagnosis Comments US AXILLARY RIGHT Schedule Routine, Read Routine (OP Routine) 10/11/2024 11:11 AM BREAD PACKER Primary cancer of right female breast (HCC) URINE CULTURE Routine 10/11/2024 10:30 AM BREAD PACKER URINALYSIS AND REFLEX TO MICROSCOPIC AND CULTURE Routine 10/11/2024 10:30 AM BREAD PACKER EGFR Routine 10/09/2024 11:52 AM BREAD PACKER DIFFERENTIAL AUTO Routine 10/09/2024 11: 52 AM BREAD PACKER COMPREHENSIVE METABOLIC PANEL Routine 10/09/2024 11:52 AM BREAD PACKER CBC WITH AUTO DIFFERENTIAL Routine 10/09/2024 11:52 AM BREAD PACKER SURGICAL PATHOLOGY Routine 09/09/2024 10 :21 AM BREAD PACKER Malignant neoplasm of right female breast, unspecified estrogen receptor status, unspecified site of breast (HCC) BREAST IMAGING US OUTSIDE REFERENCE Routine 08/14/2024 12:05 AM BREAD PACKER BREAST IMAGING MG DIAGNOSTIC OUTSIDE REFERENCE Routine 08/14/2024 12:00 AM BREAD PACKER from Last 3 Months Results * US Axillary Breast Right (10/11/2024 11:11 AM BREAD PACKER) Anatomical Region Laterality Modality Upper Extremities Right Ultrasound 10/11/2024 5:00 PM BREAD PACKER Impressions 10/11/2024 5:00 PM BREAD PACKER No evidence to suggest malignancy in the right axilla is seen. Known invasive primary in the right breast. OVERALL FINAL ASSESSMENT: BI-RADS 1-athtez-zwhrqw malignancy. Electronically signed by: Kathryn Valles M.D. Narrative 10/11/2024 5:00 PM BREAD PACKER PROCEDURE: ULTRASOUND AXILLARY BREAST RIGHT HISTORY: Known [...] the right breast. OVERALL FINAL ASSESSMENT: BI-RADS 6-ujrsxe-rdywil malignancy. Electronically signed by: Kathryn Valles M.D. Claudio Lara MD [facility]EDURES Final Result * Urinalysis reflex to microscopic and culture Urine (10/11/2024 10:30 AM BREAD PACKER) Color, ur Yellow Yellow Comment:Testing performed by : [address] [address] Clarity, ur Clear Clear MIRELLA Comment:Testing performed by : [address], [place]., [address] Specific gravity, ur 1.012 1.003 - 1.030 MIRELLA Comment:Testing performed by : [address] [address] pH, urine 5.5 MIRELLA Comment: Interpretive Data ? Urine pH is affected by diet, medications, systemic acid-base disturbances, and renal tubular function. ??pH may affect urinary stone formation. ??For example, urine pH below 6.0 may help reduce the tendency for calcium phosphate stones and pH greater than 6.0 may reduce the tendency for uric acid stone formation. Source: [facility] [employer] Current Interpretive Data was last revised on 2017 Testing performed by: [address] [address] Protein, ur ql Negative Negative MIRELLA Comment:Testing performed by : [address] [address] Glucose, ur ql Negative Negative MIRELLA Comment:Testing performed by : [address] [address] Ketones, ur Negative Negative MIRELLA Comment:Testing performed by : [address] [address] Bilirubin, ur Negative Negative MIRELLA Comment:Testing performed by : [address] [address] Blood, ur Negative Negative MIRELLA Comment:Testing performed by : [address] [address] Urobilinogen, ur <2.0 <2.0 mg/dL MIRELLA Comment:Testing performed by : [address] [address] Nitrite, ur Negative Negative MIRELLA Comment:Testing performed by : [address] [address] Leukocyte esterase, ur Negative Negative MIRELLA Comment:Testing performed by : [facility], [address] [place] [address]., [address] Urine 10/11/2024 10:3 0 AM BREAD PACKER 10/11/2024 12:46 PM BREAD PACKER Claudio Lara MD LAB MICROBIOLOGY - GENERAL ORD ERABLES Final Result Performing Organization Address [facility] [address]/[facility] de Phone Number [address] Department [place] [address] * Urine culture Urine (10/11/2024 10:30 AM BREAD PACKER) Report Final Report: Less than 100,000 colonies/mL (clinically insignificant growth based on current clinical standards) Comment:Testing performed by : [facility], [address] [place]., [address] Organism (CLINICALLY INSIGNIFICANT GROWTH MIRELLA Urine 10/11/2024 10:3 0 AM BREAD PACKER 10/11/2024 4:44 PM BREAD PACKER Narrative [facility] - 10/13/2024 7:30 AM BREAD PACKER Testing performed by [facility] Microbiology Laboratory ([phone]) Claudio Lara MD LAB MICROBIOLOGY - GENERAL ORD ERABLES Final Result Performing Organization Address [facility] [address]/[facility] de Phone Number [facility] [address] [facility] Department [place] [address] * (ABNORMAL) eGFR (10/09/2024 11:52 AM BREAD PACKER) eGFR 12(L) >=60 mL/min/1. 73 m2 Comment: [...] was last reviewed 2021. Testing performed by: [address] [address] Blood 10/09/2024 11:5 2 AM BREAD PACKER 10/09/2024 12:39 PM BREAD PACKER us Claudio Lara MD LAB BLOOD ORDERABLES Final Res ult [facility] [address] [facility] Department [place] [address] * (ABNORMAL) Differential, auto (10/09/2024 11:52 AM BREAD PACKER) Neutrophil abs 12.8(H) 1.5 - 6.5 K/cumm Comment:Testing performed by : [address] [address] Imm gran abs 0.3(H) 0.0 - 0.1 K/cumm MIRELLA Comment:Testing performed by : [address] [address] Lymphocyte abs 3.1 0.8 - 3.3 K/cumm MIRELLA Comment:Testing performed by : [address] [address] Monocyte abs 1.8(H) 0.2 - 0.8 K/cumm MIRELLA Comment:Testing performed by : [address] [address] Eosinophil abs 0.0 0.0 - 0.5 K/cumm [facility] Comment:Testing performed by : [address] [address] Basophil abs 0.0 0.0 - 0.1 K/cumm MIRELLA Comment:Testing performed by : [address] [address] Neutrophil pct 71.1 % [facility] Comment: Interpretive Data Percent cell count reference ranges are not reported, since discordance with absolute values may lead to misinterpretation of CBC data. Current Interpretive Data was last revised on 2017. Testing performed by: [address] [address] Imm gran pct 1.6 % [facility] Comment: Interpretive Data Percent cell count reference ranges are not reported, since discordance with absolute values may lead to misinterpretation of CBC data. Current Interpretive Data was last revised on 2017. Testing performed by: [address] [address] Lymphocyte pct 17.1 % [facility] Comment: Interpretive Data Percent cell count reference ranges are not reported, since discordance with absolute values may lead to misinterpretation of CBC data. Current Interpretive Data was last revised on 2017. Testing performed by: [address] [address] Monocyte pct 10.0 % [facility] Comment: Interpretive Data Percent cell count reference ranges are not reported, since discordance with absolute values may lead to misinterpretation of CBC data. Current Interpretive Data was last revised on 2017. Testing performed by: [address] [address] Eosinophil pct 0.0 % [facility] Comment: Interpretive Data Percent cell count reference ranges are not reported, since discordance with absolute values may lead to misinterpretation of CBC data. Current Interpretive Data was last revised on 2017. Testing performed by: [address] [address] Basophil pct 0.2 % [facility] Comment: Interpretive Data Percent cell count reference ranges are not reported, since discordance with absolute values may lead to misinterpretation of CBC data. Current Interpretive Data was last revised on 2017. Testing performed by: [address] [address] Blood 10/09/2024 11:5 2 AM BREAD PACKER 10/09/2024 12:40 PM BREAD PACKER us Claudio Lara MD LAB BLOOD ORDERABLES Final Res ult [facility] 3[address] [facility] Department [place] [address] * (ABNORMAL) CBC with auto differential (10/09/2024 11:52 AM BREAD PACKER) WBC 18.1(H) 3.8 - 9.9 K/cumm Comment:Testing performed by : [address] [address] Hgb 11.9 11.9 - 15.5 g/dL MIRELLA Comment:Testing performed by : [address] [address] Hct 37.8 35.6 - 45.5 % MIRELLA Comment:Testing performed by : [address] [address] Plt 348 150 - 400 K/cumm MIRELLA Comment:Testing performed by : [address] [address] MPV 10.0 9.1 - 12.3 fL MIRELLA Comment:Testing performed by : [address] [address] RBC 4.17 3.90 - 5.20 M/cumm MIRELLA Comment:Testing performed by : [address] [address] MCV 90.6 81.3 - 96.4 fL MIRELLA Comment:Testing performed by : [address] [address] MCH 28.5 27.1 - 33.3 pg MIRELLA MARK Comment:Testing performed by : [address] [address] MCHC 31.5(L) 32.3 - 35.7 g/dL MIRELLA MARK Comment:Testing performed by : [address] [address] RDW CV 15.9(H) 11.1 - 14.9 % MIRELLA MARK Comment:Testing performed by : [address] [address] RDW SD 52.8(H) 35.7 - 48.1 fL MIRELLA MARK Comment:Testing performed by : [address] [address] NRBC abs 0.00 0.00 - 0.01 K/cumm MIRELLA MARK Comment:Testing performed by : [address] [address] Blood 10/09/2024 11:5 2 AM BREAD PACKER 10/09/2024 12:40 PM BREAD PACKER Claudio Lara MD LAB BLOOD ORDERABLES Final Res ult MIRELLA [facility] Department [place] [address] * (ABNORMAL) Comprehensive metabolic panel (10/09/2024 11:52 AM BREAD PACKER) Sodium 139 135 - 145 mmol/L Comment:Testing performed by : [address] [address] Potassium, pl 4.2 3.3 - 4.9 mmol/L MIRELLA MARK Comment:Testing performed by : [address] [address] Chloride 100 97 - 110 mmol/L MIRELLA MARK Comment:Testing performed by : [address] [address] CO2 25 22 - 32 mmol/L MIRELLA MARK Comment:Testing performed by : [address] [address] Anion gap 14 2 - 15 mmol/L MIRELLA MARK Comment:Testing performed by : [address] [address] BUN 53(H) 6 - 25 mg/dL [facility] Comment:Testing performed by : [address] [address] Creatinine 3.94(H) 0.60 - 1.10 mg/dL MIRELLA Comment:Testing performed by : [address] [address] Glucose 81 70 - 199 mg/dL MIRELLA [...] was last revised 2022. Testing performed by: [address] [address] Calcium 9.8 8.5 - 10.3 mg/dL [facility] Comment:Testing performed by : [address] [address] Bilirubin, total 0.3 0.1 - 1.2 mg/dL [facility] Comment:Testing performed by : [address] [address] Protein, pl 7.7 6.5 - 8.5 g/dL [facility] Comment:Testing performed by : [address] [address] Albumin 4.0 3.5 - 5.0 g/dL [facility] Comment:Testing performed by : [address] [address] Alk phos 65 40 - 130 Units/L MIRELLA Comment:Testing performed by : [address] [address] ALT 7 7 - 45 Units/L MIRELLA Comment:Testing performed by : [address] [address] AST 21 10 - 45 Units/L MIRELLA MARK Comment:Testing performed by : [facility], [address] [place] [address], [place]., [address] Blood 10/09/2024 11:5 2 AM BREAD PACKER 10/09/2024 12:39 PM BREAD PACKER us Claudio Lara MD LAB BLOOD ORDERABLES Final Res ult MIRELLA [address] [facility] Department [place] [address] * Surgical pathology (09/09/2024 10:21 AM BREAD PACKER) Tissue (Miscellaneous) 09/09/2024 10:21 AM BREAD PACKER 09/09/2024 10:21 AM BREAD PACKER Narrative [facility] - 09/27/2024 10:55 AM BREAD PACKER EPIC results best viewed via link to PDF [facility] Pathology Consult Service [facility] [address], [place] [address] Note to Patients: This report [...] SURGICAL PATHOLOGY REPORT * Consult Report * [facility] is providing an additional review of previously collected tissue. FINAL Patient Name: ??CHANELL GARCIA Address: ??[address] [place] [address], ?[place], [place] ??[address] Gender: ??F : ??1955 (Age: 68) Hospital #: ??[id number] Patient Type: ??WU Location: ??UNKNOWN Taken: ??09/09/2024 Received: ??09/09/2024 Accessioned: ??09/09/2024 Reported: ??09/27/2024 Physician(s): Vivek Barrow M.D. [facility] Department of Pathology [address] [place] [address] P: [phone] F: [phone] Histology: [phone] Diagnosis: Consult material received from [place], [place] (OSC: [id number]; 08/14/2024). ?? Right breast mass at 10:00, [...] the following: ER positive (Feliberto score 7/8), LA positive (Feliberto score 7/8), HER2 negative (score 0), and Ki67 < 10%. History: The patient is a 68-year-old woman with history of malignant neoplasm of right breast. Materials Received: Received for review are seven slides labeled [id number], accompanied by a corresponding pathology report. The material originates from [place], [place]. Selected slide(s) may be digitally scanned for our files, and all materials are returned to the referring institution, along with a copy of our final report. Any testing required for diagnostic purposes was performed in the Department of Pathology and Immunology at [facility], [address] [place] [address]. [place] [address] CLIA # [id number] The performance characteristics of the testing cited in this report (if any) were determined by the ??[facility] Department of Pathology and Immunology [facility], as part of an ongoing manager quality program and in compliance with federally mandated [...] and the performance characteristics determined by the [facility], [facility] Department of Pathology and Immunology. ??It has not been cleared or approved by the U.S. Food and Drug Administration. ??Any test designated as LDT was developed and its performance characteristics determined by [facility]. It has not been cleared or approved by the FDA. This test is used for clinical purposes and should not be regarded as investigational or for research. Report images and/or scanned reports, if included, only viewable in PDF version of report. Vivek Barrow MD PhD LAB PATHOLOGY ORDERABLES Final R esult Performing Organization Address [facility] Co de Phone Number [facility] [address] [address] * Breast Imaging US Outside Reference (08/14/2024 12:05 AM BREAD PACKER) Narrative [facility] - 10/10/2024 9:39 AM BREAD PACKER This order has been auto-finalized and does not contain a result. us Provider Transcribed Order IMG MAMMO PROCEDURES Final Result Performing Organization Address [facility] de Phone Number [facility]_[email or web address] * Breast Imaging Diagnostic Outside Reference (08/14/2024 12:00 AM BREAD PACKER) Narrative [facility] - 10/10/2024 9:39 AM BREAD PACKER This order has been auto-finalized and does not contain a result. us Provider Transcribed Order IMG MAMMO PROCEDURES Final Result Performing Organization Address [facility] de Phone Number [facility]_CL[facility]IO_[facility]_MHE from Last 3 Months Insurance [employer] MEDICARE [facility] [place] [id number] [facility] MEDICARE [facility] MEDICARE Advance Directives For more information, please contact: [phone] * Full Code (Latest Code Status on File) Date Activated Date Inactivated Comments 06/12/2024 3:06 PM 06/13/2024 7:05 PM Care Teams Sports Medicine Trainer Relationship Specialty Start Date End Date Pola Navarro MD [address] [facility] [address] [facility] [address] [place] [address] PCP - General Family Medicine 04/03/24 Rishi Darby PA [address] [place] [address] [address] [facility] [address] [place] [address] Referring Physician Physician Principal Programmer 09/02/24 [place] [address] [place] [address] 7A/7B/7C [place] [address] Medical Oncologist/Wrapper Off Medical Oncology 10/02/24 Teresa Lima MD [address] [facility] [address] [place] [address] Referring Physician Nephrology 10/04/24
--- OUTSIDE RECORDS SUMMARY | 2024-10-13 12:56 | XMS_ITS | Clinical Summary ---
Author Organization Stefan Physician Ana Luisa darnell Address [address] [place] [address] Phone Care Team Providers Care Braddisher Name Role Phone Pola Navarro MD Primary Care Provider [phone] Allergies Active Allergy Reactions Criticality Noted Date [...] Comments Blood Pressure 136/80 07/25/2022 1:49 PM GUARD RANGE Pulse - - Temperature 36.3 ??C (97.4 ??F) 07/25/2022 1:49 PM CS T Respiratory Rate 18 07/25/2022 1:49 PM GUARD RANGE Oxygen Saturation - - Inhaled Oxygen Concentration - - Weight 94.8 kg (209 lb) 07/25/2022 1:49 PM GUARD RANGE Height 157.5 cm (5' 2 ) 07/25/2022 1:49 PM GUARD RANGE Body Mass Index 38.23 07/25/2022 1:49 PM GUARD RANGE Plan of Treatment Health Maintenance Due Date Last Done Comments Pneumococcal PPSV23/PCV13 65 + Years / High and Highest Risk (1 of 4 - PCV) 1961 Influenza Vaccine (#1) 2024 Care Teams Braddisher Relationship Specialty Start Date End Date Pola Navarro MD [address] [facility] [address] [place] [address] PCP - General Internal Medicine 10/16/19
--- OUTSIDE RECORDS SUMMARY | 2024-10-13 12:56 | XMS_ITS | Referral Summary ---
Author Organization [address] Address [address] [place] [address] Care Team Providers Care Manager Document Name Role Phone Pola Navarro MD Primary Care Provider Rishi Darby Unavailable [phone] Vivek Barrow MD PhD Unavailable Teresa Lima MD Unavailable [phone] Encounters Date Type Department Care Team Description 10/11/2024 11:15 AM NEGOTIATOR SALES Lab [facility] Building [address] [place] [address] Arrived 10/11/2024 10:00 AM NEGOTIATOR SALES - 10/11/2024 11:59 PM NEGOTIATOR SALES Hospital Encounter [facility] Medical Office Bldg 1 [facility] [address] [place] [address] [address] [place] [address] Primary cancer of right female breast (HCC) Discharge Disposition: Discharge to home or self care 10/09/2024 11:45 AM NEGOTIATOR SALES Lab [facility] Building [address] [place] [address] 10/04/2024 1:00 PM NEGOTIATOR SALES Office Visit [facility] [address] [place] [address] [address] [place] [id number] Vivek Barrow MD PhD Malignant neoplasm of upper-outer quadrant of right breast in female, estrogen receptor positive (HCC) (Primary Dx); Malignant neoplasm of right female breast, unspecified estrogen receptor status, unspecified site of breast (HCC) 09/09/2024 Orders Only [facility] [address] [place] [address] Vivek Barrow MD PhD Malignant neoplasm of right female breast, unspecified estrogen receptor status, unspecified site of breast (HCC) 09/06/2024 Orders Only [facility] [address] [facility] [address] [place] [address] Vivek Barrow MD PhD Malignant neoplasm of right female breast, unspecified estrogen receptor status, unspecified site of breast (HCC) (Primary Dx) 09/06/2024 9:15 AM NEGOTIATOR SALES Office Visit [facility] [address] [facility] [address] [place] [address] Linda Ortiz NP Status post total left knee replacement (Primary Dx); Risk for falls; Left knee pain, unspecified chronicity; Orthopedic aftercare; Altered gait 09/02/2024 Orders Only [facility] [address] [facility] Floor 8 [place] [address] Aft, Senia Tierney MD PhD Abnormal mammogram (Primary Dx) 08/14/2024 12:05 AM NEGOTIATOR SALES - 08/14/2024 11:59 PM NEGOTIATOR SALES Hospital Encounter [facility] Outside Images [address] [place] [address] Discharge Disposition: Discharge to home or self care 08/14/2024 - 08/14/2024 11:59 PM NEGOTIATOR SALES Hospital Encounter [facility] Outside Images [address] [place] [address] Discharge Disposition: Discharge to home or self [...] on file Legal Sex Female 5:04 AM NEGOTIATOR SALES Gender Identity Not on file Sexual Orientation Not on file Last Filed Vital Signs Vital Sign Reading Time Taken Comments Blood Pressure 158/82 10/04/2024 1:43 PM NEGOTIATOR SALES Pulse 82 10/04/2024 1:43 PM NEGOTIATOR SALES Temperature 36.6 ??C (97.8 ??F) 10/04/2024 1:43 PM CS T Respiratory Rate 20 10/04/2024 1:43 PM NEGOTIATOR SALES Oxygen Saturation 98% 10/04/2024 1:43 PM NEGOTIATOR SALES Inhaled Oxygen Concentration - - Weight 91.6 kg (202 lb) 10/04/2024 1:43 PM NEGOTIATOR SALES n o shoes Height 157.5 cm (5' 2 ) 10/04/2024 1:43 PM NEGOTIATOR SALES n o shoes Body Mass Index 36.95 10/04/2024 1:43 PM NEGOTIATOR SALES Plan of Treatment Not on file Medical Devices Implanted Type Area Brick Setter Device Identifier Shelf Expiration Date Model / Serial / Lot [employer] Simplex P Radiopaque Full Dose Cement Bone Sterile 6191-1-010 - [id number] Implanted:Qty: 1 on 06/12/2024 by Doni Sharma MD at [facility] Left: Knee [employer] [id number] 04/17/2026 6191-1-010 / / [id number] [employer] Simplex P Radiopaque Full Dose Cement Bone Sterile 6191-1-010 - [id number] Implanted:Qty: 1 on 06/12/2024 by Doni Sharma MD at [facility] Left: Knee [employer] [id number] 04/17/2026 6191-1-010 / / [id number] [employer]/Or tho Nereida Ii [id number] Knee Oval Component Patellar Uhmwpe [id number] - [id number] Implanted:Qty: 1 on 06/12/2024 by Doni Sharma MD at [facility] Left: Knee [employer]/O rtho [id number] 02/11/2034 [id number] / / [id number] [employer]/Or tho Journey Bicruciate Stabilize Knee Left 4 Baseplate Tibial [id number] - [id number] Implanted:Qty: 1 on 06/12/2024 by Doni Sharma MD at [facility] Left: Knee [employer]/O rtho [id number] 02/24/2034 [id number] / / [id number] [employer]/Or tho Journey Ii Cruciate Retain Knee Left 5 Component Femoral Oxinium [id number] - [id number] Implanted:Qty: 1 on 06/12/2024 by Doni Sharma MD at [facility] Left: Knee [employer]/O rtho [id number] 02/23/2034 [id number] / / [id number] [employer]/Or tho Insert Tibial Knee Fixed Lm Articular Journey Ii 11mm Size 3-4 Xlpe [id number] - [id number] Implanted:Qty: 1 on 06/12/2024 by Doni Sharma MD at [facility] Left: Knee [employer]O rtho [id number] 08/12/2033 [id number] / / [id number] Procedures Procedure Name Priority Date/Time Associated Diagnosis Comments US AXILLARY RIGHT Schedule Routine, Read Routine (OP Routine) 10/11/2024 11:11 AM NEGOTIATOR SALES Primary cancer of right female breast (HCC) URINE CULTURE Routine 10/11/2024 10:30 AM NEGOTIATOR SALES URINALYSIS AND REFLEX TO MICROSCOPIC AND CULTURE Routine 10/11/2024 10:30 AM NEGOTIATOR SALES EGFR Routine 10/09/2024 11:52 AM NEGOTIATOR SALES DIFFERENTIAL AUTO Routine 10/09/2024 11: 52 AM NEGOTIATOR SALES COMPREHENSIVE METABOLIC PANEL Routine 10/09/2024 11:52 AM NEGOTIATOR SALES CBC WITH AUTO DIFFERENTIAL Routine 10/09/2024 11:52 AM NEGOTIATOR SALES SURGICAL PATHOLOGY Routine 09/09/2024 10 :21 AM NEGOTIATOR SALES Malignant neoplasm of right female breast, unspecified estrogen receptor status, unspecified site of breast (HCC) BREAST IMAGING US OUTSIDE REFERENCE Routine 08/14/2024 12:05 AM NEGOTIATOR SALES BREAST IMAGING MG DIAGNOSTIC OUTSIDE REFERENCE Routine 08/14/2024 12:00 AM NEGOTIATOR SALES from Last 3 Months Results * US Axillary Breast Right (10/11/2024 11:11 AM NEGOTIATOR SALES) Anatomical Region Laterality Modality Upper Extremities Right Ultrasound 10/11/2024 5:00 PM NEGOTIATOR SALES Impressions 10/11/2024 5:00 PM NEGOTIATOR SALES No evidence to suggest malignancy in the right axilla is seen. Known invasive primary in the right breast. OVERALL FINAL ASSESSMENT: BI-RADS 0-ceulaa-ocpgmu malignancy. Electronically signed by: Kathryn Valles M.D. Narrative 10/11/2024 5:00 PM NEGOTIATOR SALES PROCEDURE: ULTRASOUND AXILLARY BREAST RIGHT HISTORY: Known [...] the right breast. OVERALL FINAL ASSESSMENT: BI-RADS 1-psonae-vvivii malignancy. Electronically signed by: Kathryn Valles M.D. Claudio Lara MD [facility] PROCEDURES Final Result * Urinalysis reflex to microscopic and culture Urine (10/11/2024 10:30 AM NEGOTIATOR SALES) Color, ur Yellow Yellow Comment:Testing performed by : [address] [address] Clarity, ur Clear Clear MIRELLA Comment:Testing performed by : [address] [address] Specific gravity, ur 1.012 1.003 - 1.030 MIRELLA Comment:Testing performed by : [address] [address] pH, urine 5.5 MIRELLA Comment: Interpretive Data ? Urine pH is affected by diet, medications, systemic acid-base disturbances, and renal tubular function. ??pH may affect urinary stone formation. ??For example, urine pH below 6.0 may help reduce the tendency for calcium phosphate stones and pH greater than 6.0 may reduce the tendency for uric acid stone formation. Source: [employer] Current Interpretive Data was last revised on 2017 Testing performed by: [address] [address] Protein, ur ql Negative Negative MIRELLA Comment:Testing performed by : [address] [address] Glucose, ur ql Negative Negative MIRELLA Comment:Testing performed by : [address] [address] Ketones, ur Negative Negative MIRELLA Comment:Testing performed by : [address] [address] Bilirubin, ur Negative Negative MIRELLA Comment:Testing performed by : [facility], [address] [place] [address]., [address] Blood, ur Negative Negative MIRELLA MARK Comment:Testing performed by : [address] [address] Urobilinogen, ur <2.0 <2.0 mg/dL MIRELLA MARK Comment:Testing performed by : [address] [address] Nitrite, ur Negative Negative MIRELLA MARK Comment:Testing performed by : [address] [address] Leukocyte esterase, ur Negative Negative MIRELLA Comment:Testing performed by : [address] [address] Urine 10/11/2024 10:3 0 AM NEGOTIATOR SALES 10/11/2024 12:46 PM NEGOTIATOR SALES Claudio Lara MD LAB MICROBIOLOGY - GENERAL ORD ERABLES Final Result Performing Organization Address City/[facility] Co de Phone Number [address] [place] [place] [address] * Urine culture Urine (10/11/2024 10:30 AM NEGOTIATOR SALES) Report Final Report: Less than 100,000 colonies/mL (clinically insignificant growth based on current clinical standards) Comment:Testing performed by : [facility], [address] [facility] [place]., [address] Organism (CLINICALLY INSIGNIFICANT GROWTH MIRELLA Urine 10/11/2024 10:3 0 AM NEGOTIATOR SALES 10/11/2024 4:44 PM NEGOTIATOR SALES Narrative MIRELLA - 10/13/2024 7:30 AM NEGOTIATOR SALES Testing performed by [facility] Microbiology Laboratory ([phone]) Claudio Lara MD LAB MICROBIOLOGY - GENERAL ORD ERABLES Final Result Performing Organization Address City/[facility]/ZIP Co de Phone Number [address] [place] [address] * (ABNORMAL) eGFR (10/09/2024 11:52 AM NEGOTIATOR SALES) eGFR 12(L) >=60 mL/min/1. 73 m2 Comment: [...] was last reviewed 2021. Testing performed by: [facility], [address] [place] [address]., [address] Blood 10/09/2024 11:5 2 AM NEGOTIATOR SALES 10/09/2024 12:39 PM NEGOTIATOR SALES us Claudio Lara MD LAB BLOOD ORDERABLES Final Res ult [facility] [address] [facility] [place] [address] * (ABNORMAL) Differential, auto (10/09/2024 11:52 AM NEGOTIATOR SALES) Neutrophil abs 12.8(H) 1.5 - 6.5 K/cumm Comment:Testing performed by : [address] [address] Imm gran abs 0.3(H) 0.0 - 0.1 K/cumm CERNER Comment:Testing performed by : [address] [address] Lymphocyte abs 3.1 0.8 - 3.3 K/cumm CERNER Comment:Testing performed by : [address] [address] Monocyte abs 1.8(H) 0.2 - 0.8 K/cumm [facility] Comment:Testing performed by : [address], [place]., [address] Eosinophil abs 0.0 0.0 - 0.5 K/cumm [facility] Comment:Testing performed by : [address] [address] Basophil abs 0.0 0.0 - 0.1 K/cumm [facility] Comment:Testing performed by : [address] [address] Neutrophil pct 71.1 % [facility] Comment: Interpretive Data Percent cell count reference ranges are not reported, since discordance with absolute values may lead to misinterpretation of CBC data. Current Interpretive Data was last revised on 2017. Testing performed by: [address] [address] Imm gran pct 1.6 % [facility] Comment: Interpretive Data Percent cell count reference ranges are not reported, since discordance with absolute values may lead to misinterpretation of CBC data. Current Interpretive Data was last revised on 2017. Testing performed by: [address] [address] Lymphocyte pct 17.1 % [facility] Comment: Interpretive Data Percent cell count reference ranges are not reported, since discordance with absolute values may lead to misinterpretation of CBC data. Current Interpretive Data was last revised on 2017. Testing performed by: [address] [address] Monocyte pct 10.0 % C[facility] Comment: Interpretive Data Percent cell count reference ranges are not reported, since discordance with absolute values may lead to misinterpretation of CBC data. Current Interpretive Data was last revised on 2017. Testing performed by: [address] [address] Eosinophil pct 0.0 % MIRELLA Comment: Interpretive Data Percent cell count reference ranges are not reported, since discordance with absolute values may lead to misinterpretation of CBC data. Current Interpretive Data was last revised on 2017. Testing performed by: [address] [address] Basophil pct 0.2 % MIRELLA Comment: Interpretive Data Percent cell count reference ranges are not reported, since discordance with absolute values may lead to misinterpretation of CBC data. Current Interpretive Data was last revised on 2017. Testing performed by: [address] [address] Blood 10/09/2024 11:5 2 AM NEGOTIATOR SALES 10/09/2024 12:40 PM NEGOTIATOR SALES Claudio Lara MD LAB BLOOD ORDERABLES Final Res ult [facility] [address] [facility] [place] [address] * (ABNORMAL) CBC with auto differential (10/09/2024 11:52 AM NEGOTIATOR SALES) WBC 18.1(H) 3.8 - 9.9 K/cumm Comment:Testing performed by : [address] [address] Hgb 11.9 11.9 - 15.5 g/dL MIRELLA MARK Comment:Testing performed by : [address] [address] Hct 37.8 35.6 - 45.5 % MIRELLA MARK Comment:Testing performed by : [address] [address] Plt 348 150 - 400 K/cumm MIRELLA MARK Comment:Testing performed by : [address] [address] MPV 10.0 9.1 - 12.3 fL MIRELLA MARK Comment:Testing performed by : [address] [address] RBC 4.17 3.90 - 5.20 M/cumm MIRELLA MARK Comment:Testing performed by : [address] [address] MCV 90.6 81.3 - 96.4 fL MIRELLA MARK Comment:Testing performed by : [address] [address] MCH 28.5 27.1 - 33.3 pg MIRELLA MARK Comment:Testing performed by : [address] [address] MCHC 31.5(L) 32.3 - 35.7 g/dL MIRELLA MARK Comment:Testing performed by : [address] [address] RDW CV 15.9(H) 11.1 - 14.9 % MIRELLA MARK Comment:Testing performed by : [address] [address] RDW SD 52.8(H) 35.7 - 48.1 fL MIRELLA MARK Comment:Testing performed by : [address] [address] NRBC abs 0.00 0.00 - 0.01 K/cumm MI[facility]A MARK Comment:Testing performed by : [address] [address] Blood 10/09/2024 11:5 2 AM NEGOTIATOR SALES 10/09/2024 12:40 PM NEGOTIATOR SALES us Claudio Lara MD LAB BLOOD ORDERABLES Final Res ult [facility] [address] [facility] [place] [address] * (ABNORMAL) Comprehensive metabolic panel (10/09/2024 11:52 AM NEGOTIATOR SALES) Sodium 139 135 - 145 mmol/L Comment:Testing performed by : [address] [address] Potassium, pl 4.2 3.3 - 4.9 mmol/L MIRELLA Comment:Testing performed by : [address], [place]., [address] Chloride 100 97 - 110 mmol/L MIRELLA Comment:Testing performed by : [address], [place]., [address] CO2 25 22 - 32 mmol/L MIRELLA Comment:Testing performed by : [address] [address] Anion gap 14 2 - 15 mmol/L MIRELLA Comment:Testing performed by : [address], [place]., [address] BUN 53(H) 6 - 25 mg/dL [facility] Comment:Testing performed by : [address] [address] Creatinine 3.94(H) 0.60 - 1.10 mg/dL MIRELLA Comment:Testing performed by : [address] [address] Glucose 81 70 - 199 mg/dL [facility] Comment: Interpretive Data Fasting glucose >/= 126 [...] was last revised 2022. Testing performed by: [address] [address] Calcium 9.8 8.5 - 10.3 mg/dL [facility] Comment:Testing performed by : [address] [address] Bilirubin, total 0.3 0.1 - 1.2 mg/dL MIRELLA Comment:Testing performed by : [address] [address] Protein, pl 7.7 6.5 - 8.5 g/dL MIRELLA Comment:Testing performed by : [address] [address] Albumin 4.0 3.5 - 5.0 g/dL MIRELLA MARK Comment:Testing performed by : [address] [address] Alk phos 65 40 - 130 Units/L MIRELLA MARK Comment:Testing performed by : [address] [address] ALT 7 7 - 45 Units/L MIRELLA Comment:Testing performed by : [address] [address] AST 21 10 - 45 Units/L MIRELLA Comment:Testing performed by : [address] [address] Blood 10/09/2024 11:5 2 AM NEGOTIATOR SALES 10/09/2024 12:39 PM NEGOTIATOR SALES Claudio Lara MD LAB BLOOD ORDERABLES Final Res ult [facility] [address] [facility] [place] [address] * Surgical pathology (09/09/2024 10:21 AM NEGOTIATOR SALES) Tissue (Miscellaneous) 09/09/2024 10:21 AM NEGOTIATOR SALES 09/09/2024 10:21 AM NEGOTIATOR SALES Narrative [facility] PATHOLOGY LAB - 09/27/2024 10:55 AM NEGOTIATOR SALES EPIC results best viewed via link to PDF [facility] Pathology Consult Service Malvin Srinivasan [address], [address], [place] [address] Note to Patients: This report [...] SURGICAL PATHOLOGY REPORT * Consult Report * [facility] is providing an additional review of previously collected tissue. FINAL Patient Name: ??CHANELL GARCIA Address: ??[address] [facility], ?[place], [place] ??[address] Gender: ??F : ??1955 (Age: 68) Hospital #: ??[id number] Patient Type: ??WU Location: ??UNKNOWN Taken: ??09/09/2024 Received: ??09/09/2024 Accessioned: ??09/09/2024 Reported: ??09/27/2024 Physician(s): Vivek Barrow M.D. [facility] Department of Pathology [address] [place] [address] P: [phone] F: [phone] Histology: [phone] Diagnosis: Consult material received from [place], [place] (OSC: [id number]; 08/14/2024). ?? Right breast mass at 10:00, [...] the following: ER positive (Feliberto score 7/8), OK positive (Feliberto score 7/8), HER2 negative (score 0), and Ki67 < 10%. History: The patient is a 68-year-old woman with history of malignant neoplasm of right breast. Materials Received: Received for review are seven slides labeled [id number], accompanied by a corresponding pathology report. The material originates from [place], [place]. Selected slide(s) may be digitally scanned for our files, and all materials are returned to the referring institution, along with a copy of our final report. Any testing required for diagnostic purposes was performed in the Department of Pathology and Immunology at [facility], [address] [place] [address] CLIA # [id number] The performance characteristics of the testing cited in this report (if any) were determined by the ??[facility] Department of Pathology and Immunology [facility], as part of an ongoing cloth tester quality program and in compliance with federally [...] and the performance characteristics determined by the [facility], [facility] Department of Pathology and Immunology. ??It has not been cleared or approved by the U.S. Food and Drug Administration. ??Any test designated as LDT was developed and its performance characteristics determined by [facility]. It has not been cleared or approved by the FDA. This test is used for clinical purposes and should not be regarded as investigational or for research. Report images and/or scanned reports, if included, only viewable in PDF version of report. us Vivek Barrow MD PhD LAB PATHOLOGY ORDERABLES Final R esult [facility] LAB [address] [address] * Breast Imaging US Outside Reference (08/14/2024 12:05 AM NEGOTIATOR SALES) Narrative RAD_LEVAR_MHB_MHE - 10/10/2024 9:39 AM NEGOTIATOR SALES This order has been auto-finalized and does not contain a result. us Provider Transcribed Order IMG MAMMO PROCEDURES Final Result KANDI_[email or web address] * Breast Imaging Diagnostic Outside Reference (08/14/2024 12:00 AM NEGOTIATOR SALES) Narrative GAIL - 10/10/2024 9:39 AM NEGOTIATOR SALES This order has been auto-finalized and does not contain a result. us Provider Transcribed Order IMG MAMMO PROCEDURES Final Result Performing Organization Address City/State/[facility] Co de Phone Number KANDI_LEVAR_MHB_MHE from Last 3 Months Insurance [employer] [facility] MEDICARE [employer] [facility] MEDICARE [employer] MEDICARE AETNA MEDICARE Advance Directives For more information, please contact: [phone] * Full Code (Latest Code Status on File) Date Activated Date Inactivated Comments 06/12/2024 3:06 PM 06/13/2024 7:05 PM Care Teams Manager Document Relationship Specialty Start Date End Date Pola Navarro MD [address] [address] PCP - General Family Medicine 04/03/24 Rishi Darby PA [address] [place] [address] [address] [place] [address] Referring Physician Physician Statement Clerk 09/02/24 Vivek Barrow MD PhD [address] [facility] [address]7B[address] [address] Medical Oncologist/Diesel Mechanic Medical Oncology 10/02/24 Teresa Lima MD [facility] [address] [place] [address] Referring Physician Nephrology 10/04/24
--- OUTSIDE RECORDS SUMMARY | 2024-10-13 12:56 | XMS_ITS | Clinical Summary ---
Author Organization [facility] Address [address] [place] [address] Care Team Providers Care Weight Engineer Name Role Phone Tre Troy MD Primary Care Provider [phone] Source Comments [facility] Affiliates and Associated Physician Practices is amultiple site organization consisting of ambulatory clinics and hospital sitesin [place], [place], [place] and [place]. This disclosure is being madepursuant to the Care Everywhere program and may not contain all information available regarding this patient. Last updated 18.[facility] Allergies Active Allergy Reactions Criticality Noted Date [...] age to complete this topic Care Teams Weight Engineer Relationship Specialty Start Date End Date Tre Troy MD [address] [place] [address] PCP - General 09/04/18
--- OUTSIDE RECORDS SUMMARY | 2024-10-13 12:56 | XMS_ITS | CONTINUITY OF CARE DOCUMENT ---
Author Name unique calhoun Address Unknown Organization [facility] Address [address] [place] [address] Phone [phone] Care Team Providers Care Oncology Account Specialist Name Role Phone Ed WHITTINGTON, Paul Unavailable [phone] LESLI WHITTINGTON, DONNIE Unavailable Unavailable LESLI WHITTINGTON, [...] In-person encounter Office Visit Paul Ward MD [facility] Other symptoms involving cardiovascular systemFamily History of Hypertension:Obesity - In-person encounter Office Visit Paul Ward MD [facility] HypertensionChest pain-type to be determinedGERDGoutPalpitationsRenal failure, chronic VITAL SIGNS Date Observation Value Provider blood pressure, diastolic 80 mm[Hg] As fallon Grider blood pressure, systolic 128 mm[Hg] Paulo monique Grider pulse rate 66 /min Donna Grider oxygen saturation, oximetry 96 % Donnamonique Grider respiratory rate E&M 16 /min Donna Grider Body Mass Index (Ratio) 44.33 kg/m2 [facility] E&M 227 [lb_av] Donnagilberto Grider blood pressure, diastolic, right arm 86 m m[Hg] Donnagilberto Grider blood pressure, systolic, right arm 130 m m[Hg] Donnamonique Grider blood pressure, diastolic 90 mm[Hg] [facility], systolic 140 mm[Hg] [facility] Marni pulse rate 88 /min Donnagilberto Grider oxygen saturation, oximetry 96 % Donnamonique Grider respiratory rate E&M 16 /min Donnagilberto Grider Body Mass Index (Ratio) 43.16 kg/m2 [facility] weight E&M 221 [lb_av] Donnamonique [...] Payer name Policy type / Coverage type [place] red democr[employer] ID [facility] [id number] 1 TREATMENT PLAN Date Name Performer f/u: H er updated medication list for this problem includes: Bystolic Tabs (Nebivolol hcl tabs) ..... 1 daily Paul Ward MD f/u Paul Kelley f/u Paul Kelley f/u: H er updated medication list for this problem includes: Bystolic Tabs (Nebivolol hcl tabs) ..... 1 daily Tribenzor 20-5-12.5 Mg Tabs (Wsnsiqmfip-vtfmzqmziq-ynir) ..... 1 daily Orders: E KG (CPT-03763) Paul Ward MD f/u: H er updated medication list for this problem includes: Dexilant 60 Mg Cpdr (Dexlansoprazole) ..... 1 daily Zegerid Otc Caps (Omeprazole-sodium bicarbonate caps) ..... 1 daily Orders: S TR - Nuclear (54885) R enal Artery Duplex ([id number]) Paul Ward MD f/u: O rders: S TR - Nuclear (16497) R enal Artery Duplex (CPT-93597) Paul Ward MD Date Name Renal Artery Duplex Kidney Ultrasound Mobile Cardiac Tele STR - Nuclear HISTORY OF PROCEDURES Procedure Date Procedure Name Provider Procedure Notes S tatus EKG Paul Ward MD complet ed EKG Paul Ward MD complet ed
--- OUTSIDE RECORDS SUMMARY | 2024-10-13 12:56 | XMS_ITS | Patient Health Summary ---
Author Organization [facility] Address [address] [place] [address] Care Team Providers Care Engagement Quality Consultant Name Role Phone Tre Troy MD Primary Care Provider [phone] [facility],non-owned Affiliates and Associated Physician Practices is amultiple site organization consisting of ambulatory clinics and hospital sitesin [place], [place], [place] and [place]. This disclosure is being madepursuant to the Care Everywhere program and may not contain all information available regarding this patient. Last updated 18.[facility] Allergies * Shellfish-Derived Products(Anaphylaxis) -High Criticality Medications * Be aware that medications may not be up to date on this document. Alwaysverify current medications with the patient. * sydnpszqyd-doHZKBMrvr-QIDI (TRIBENZOR) 40-10-25 MG tablet olmesartan 40 mg-amlodipine [...] 43.46 02/26/2019 8:46 AM CDT Care Teams Engagement Quality Consultant Relationship Specialty Start Date End Date Tre Troy MD [address] [place] [address] PCP - General 09/04/18
--- OUTSIDE RECORDS SUMMARY | 2024-10-13 12:56 | XMS_ITS | Referral Summary ---
Author Organization [facility] Address [address] [place] [address] Care Team Providers Care Office Machines Teacher Name Role Phone Tre Troy MD Primary Care Provider [phone] Source Comments [facility],non-[facility] Affiliates and Associated Physician Practices is amultiple site organization consisting of ambulatory clinics and hospital sitesin [place], [place], [place] and [place]. This disclosure is being madepursuant to the Care Everywhere program and may not contain all information available regarding this patient. Last updated 18.[facility] Allergies Active Allergy Reactions Criticality Noted Date [...] of Treatment Not on file Care Teams Office Machines Teacher Relationship Specialty Start Date End Date Tre Troy MD [address] [place] [address] PCP - General 09/04/18
[2024-10-13] MEDS: HYDROcodone/acetaminophen (*CRX) 5-325 MG TABLET 2 TAB PO (13:11)
--- NOTE | 2024-10-13 13:26 | ED.GENADULT ---
HPI - General Adult General Chief complaint: Skin/Abscess/Foreign Body Stated complaint: cyst in L armpit pain to L leg Time Seen by Provider: 10/13/24 12:35 History of Present Illness HPI narrative: This is a 69-year-old female presenting for 2 complaints. First complaint is a abscess in her left armpit. He has been out for approximately 10 days. It started draining several days ago but is still very painful. No systemic signs of illness such as fevers chills nausea vomiting diarrhea. Second complaint is foot pain. Patient has been having chronic bilateral foot pain for the last year. She has had this worked up by a primary care physician. To not taking for pain control today. 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 Compressed vertebrae Oct 19 from fall Gout COVID-19 vaccine series completed (~07/2020) Chronic kidney disease, stage III (moderate) Allergic rhinitis Lupus IFG (impaired fasting glucose) Acid reflux Hypertension History of vaginal delivery x 2 Surgical History Surgical History History of repair of right rotator cuff History of bunionectomy of both great toes History of surgical removal of meniscus of knee History of tubal ligation History of cholecystectomy History of total hysterectomy (~1995) due to fibroids and dysfunctional uterine bleeding Family History Family History Father , at age 82 Diabetes mellitus, Onset Age: 82 Hypertension Dementia Mother , at age 70 Hypertension Lung cancer Sibling Family history of blood dyscrasia Lung cancer her youngest sister of lung cancer. Social History Social History Social History: she lives in [place] with her of 40 years. They have 1 daughter and 1 son. She is employed as a [employer]. She is a lifelong nonsmoker. She very rarely drinks a small amount of alcohol. She denies any illicit substance use. Primary care physician: Dr. Pola Navarro Code status: Full code Surrogate decision maker: Smoking status: Never smoker Second hand tobacco smoke exposure: No Alcohol intake: former Substance use: never Substance use type: does not use Do You Feel Safe in your Home?: Yes Lack of Transportation: No Lack of Food: Never True Current Housing: I Have Housing Concerned About Future Housing: No Difficulty Paying Gas/Electric Bills: No Difficulty Paying for Meds: No Currently Unemployed: No Education: High School Diploma/GED Difficulty w/ Childcare or Family Care: No Living arrangements: with family Occupation/Education: occupation Gender identity (if verbalized by the patient): Female Sexual Orientation (if Verbalized by the Patient): Straight or Heterosexual Spiritual care concerns: No Exam Narrative: APPEARANCE: No apparent distress. Head: atraumatic. EYES: EOMI, NOSE: Atraumatic NECK: Trachea midline RESPIRATORY: No increased rate of breathing CARDIOVASCULAR: RRR, ABDOMINAL: Non-distended MUSCULOSKELETAl: Focal exam of the feet revealed no obvious deformities or bruising. There is mild swelling of the ankles. No focal tenderness. Cap refill less than 2 seconds. NEURO: Alert. Moving 4/4 extremities SKIN:: Left axillary shows a area of erythema and fluctuance consistent with abscess PSYCHIATRIC: Normal affect Course Vital Signs Vital signs: Vital Signs Temperature 97.2 F L 10/13/24 11:44 Pulse Rate 102 H 10/13/24 11:44 Respiratory Rate 16 10/13/24 11:44 Blood Pressure 105/58 L 10/13/24 11:44 Pulse Oximetry 99 10/13/24 11:44 Oxygen Delivery Room Air 10/13/24 11:44 Temperature 97.2 F L 10/13/24 11:44 Pulse Rate 102 H 10/13/24 11:44 Respiratory Rate 16 10/13/24 11:44 Blood Pressure 105/58 L 10/13/24 11:44 Pulse Oximetry 99 10/13/24 11:44 Oxygen Delivery Room Air 10/13/24 11:44 Procedures Abscess I/D upper extremity: Date of Incision: 10/13/24 Side (if applicable): left Local Anesthetic: bupivacaine 0.25% Amount of anesthesia used (mL): 5 Technique: incised with #11 blade Amount of fluid expressed (mL): 10 Irrigation: Yes Packing used?: none I&D Results: Pus and Blood Medical Decision Making MDM Narrative Medical decision making narrative: -Course: 69-year-old female presenting with a axillary abscess. Abscess was incised and drained. She will be started on keflex. Patient complaining of foot pain although this is chronic and has had workup performed by primary care physician. Patient was treated with pain medication and can follow up with her PCP for further management. Given return precautions for ReaccumulationOf abscess or systemic signs of illness. -DDX includes but is not limited to: Abscess, cellulitis, phlegmon, neuropathy, gout, arthritis -Co-morbidities complicating care: Chronic pain -Interventions:C[place]ley 5 mg x 2 -Shared decision:discharged RX: Cephalexin Vital Signs Vital Signs: Vital Signs Temperature 97.2 F L 10/13/24 11:44 Pulse Rate 102 H 10/13/24 11:44 Respiratory Rate 16 10/13/24 11:44 Blood Pressure 105/58 L 10/13/24 11:44 Pulse Oximetry 99 10/13/24 11:44 Oxygen Delivery Room Air 10/13/24 11:44 Temperature 97.2 F L 10/13/24 11:44 Pulse Rate 102 H 10/13/24 11:44 Respiratory Rate 16 10/13/24 11:44 Blood Pressure 105/58 L 10/13/24 11:44 Pulse Oximetry 99 10/13/24 11:44 Oxygen Delivery Room Air 10/13/24 11:44 Discharge Plan Discharge Clinical Impression: Abscess, Chronic foot pain Patient Disposition: Home, Self-Care Condition: Stable Instructions: Antibiotic Form, Abscess (ED) Additional Instructions: Please complete a course of Bactrim for abscess. If it is becoming swollen painful or appears infected please return to ED for re-evaluation. Please follow-up for with your primary care physician for further management of your chronic foot pain. Patient Language: Latvian Prescriptions: New cephalexin 500 mg capsule 500 mg PO Q12H Qty: 10 0RF No Action fluticasone propionate [Flonase Allergy Relief] 50 mcg/actuation spray,suspension 2 spray intranasal DAILY Qty: 16 0RF Rx Instructions: administer into each nostril pantoprazole 40 mg tablet,delayed release (DR/EC) 40 mg PO .PRN cetirizine [Zyrtec] 10 mg tablet 10 mg PO DAILY PRN (Reason: Allergy Symptoms) calcitriol 0.25 mcg capsule 0.25 mcg PO 3XW Qty: 12 6RF Rx Instructions: Take on Mondays, Wednesdays, and Fridays hydrocodone-acetaminophen 5-325 mg tablet 1 tablet PO Q8H PRN (Reason: pain) Qty: 21 0RF (DME) praveena Hayward See Rx Instructions .Route Qty: 1 0RF Rx Instructions: As directed mlkgjecobk-yrverfnyv-gbiquolqw 20-5-12.5 mg tablet 1 tablet PO DAILY Qty: 90 3RF venlafaxine 150 mg capsule,extended release 24hr 150 mg PO DAILY Qty: 90 3RF nebivolol 5 mg tablet 5 mg PO DAILY Qty: 90 3RF febuxostat [Uloric] 40 mg tablet 40 mg PO DAILY Qty: 30 5RF colchicine 0.6 mg tablet 0.6 mg PO .COMPLEX Qty: 30 0RF Rx Instructions: 2 po once, then 1 po one hr later, then 1 po qd Follow-up/Referrals: Pola Navarro MD [Primary Care Provider] -
== END 2024-10-13 13:48 | disposition home or self-care (01) ==
PROVIDERS: Emergency Provider Emergency Medicine; PCP Family Medicine
DX: L02.412 Cutaneous abscess of left axilla (principal); M79.672 Pain in left foot; M79.671 Pain in right foot; G89.29 Other chronic pain; I12.9 Hypertensive chronic kidney disease with stage 1 through stage 4 chronic kidney disease, or unspecified chronic kidney disease; N18.30 Chronic kidney disease, stage 3 unspecified; M32.9 Systemic lupus erythematosus, unspecified; K21.9 Gastro-esophageal reflux disease without esophagitis; Z90.49 Acquired absence of other specified parts of digestive tract; Z90.710 Acquired absence of both cervix and uterus
CPT/HCPCS: 10060; 99283; A9270

== ENCOUNTER 2024-10-14 17:11 | Outpatient (CLI) | payer MEDICARE, SELFPAY ==
--- OUTSIDE RECORDS SUMMARY | 2024-10-14 17:14 | XMS_ITS | Referral Summary ---
Author Organization [address] Address [address] [place] [address] Care Team Providers Care Still Cleaner Tube Name Role Phone Pola Navarro MD Primary Care Provider Rishi Darby Unavailable [phone] Vivek Barrow MD PhD Unavailable Teresa Lima MD Unavailable [phone] Encounters Date Type Department Care Team Description 10/11/2024 11:15 AM FOUNDATION DRILL OPERATOR HELPER Lab [facility] Building [address] [place] [address] Arrived 10/11/2024 10:00 AM FOUNDATION DRILL OPERATOR HELPER - 10/11/2024 11:59 PM FOUNDATION DRILL OPERATOR HELPER Hospital Encounter [facility] Medical Office Bldg 1 [facility] [address] [place] [address] [address] [place] [address] Primary cancer of right female breast (HCC) Discharge Disposition: Discharge to home or self care 10/09/2024 11:45 AM FOUNDATION DRILL OPERATOR HELPER Lab [facility] Building [address] [place] [address] 10/04/2024 1:00 PM FOUNDATION DRILL OPERATOR HELPER Office Visit [facility] Oncology [address] [place] [address] [address] [place] [id number] Vivek Barrow MD PhD Malignant neoplasm of upper-outer quadrant of right breast in female, estrogen receptor positive (HCC) (Primary Dx); Malignant neoplasm of right female breast, unspecified estrogen receptor status, unspecified site of breast (HCC) 09/09/2024 Orders Only [facility] [address] [place] [address] Vivek Barrow MD PhD Malignant neoplasm of right female breast, unspecified estrogen receptor status, unspecified site of breast (HCC) 09/06/2024 Orders Only [facility] Oncology [address] [facility] [address] [place] [address] Vivek Barrow MD PhD Malignant neoplasm of right female breast, unspecified estrogen receptor status, unspecified site of breast (HCC) (Primary Dx) 09/06/2024 9:15 AM FOUNDATION DRILL OPERATOR HELPER Office Visit [facility] [address] [facility] [address] [place] [address] Linda Ortiz NP Status post total left knee replacement (Primary Dx); Risk for falls; Left knee pain, unspecified chronicity; Orthopedic aftercare; Altered gait 09/02/2024 Orders Only [facility] [address] [facility] Floor 8 [place] [address] Aft, Senia Tierney MD PhD Abnormal mammogram (Primary Dx) 08/14/2024 12:05 AM FOUNDATION DRILL OPERATOR HELPER - 08/14/2024 11:59 PM FOUNDATION DRILL OPERATOR HELPER Hospital Encounter [facility] Outside Images [address] [place] [address] Discharge Disposition: Discharge to home or self care 08/14/2024 - 08/14/2024 11:59 PM FOUNDATION DRILL OPERATOR HELPER Hospital Encounter [facility] Outside Images [address] [place] [address] Discharge Disposition: Discharge to home or self [...] on file Legal Sex Female 5:04 AM FOUNDATION DRILL OPERATOR HELPER Gender Identity Not on file Sexual Orientation Not on file Last Filed Vital Signs Vital Sign Reading Time Taken Comments Blood Pressure 158/82 10/04/2024 1:43 PM FOUNDATION DRILL OPERATOR HELPER Pulse 82 10/04/2024 1:43 PM FOUNDATION DRILL OPERATOR HELPER Temperature 36.6 ??C (97.8 ??F) 10/04/2024 1:43 PM CS T Respiratory Rate 20 10/04/2024 1:43 PM FOUNDATION DRILL OPERATOR HELPER Oxygen Saturation 98% 10/04/2024 1:43 PM FOUNDATION DRILL OPERATOR HELPER Inhaled Oxygen Concentration - - Weight 91.6 kg (202 lb) 10/04/2024 1:43 PM FOUNDATION DRILL OPERATOR HELPER n o shoes Height 157.5 cm (5' 2 ) 10/04/2024 1:43 PM FOUNDATION DRILL OPERATOR HELPER n o shoes Body Mass Index 36.95 10/04/2024 1:43 PM FOUNDATION DRILL OPERATOR HELPER Plan of Treatment Not on file Medical Devices Implanted Type Area Mica Miner Device Identifier Shelf Expiration Date Model / Serial / Lot [employer] Simplex P Radiopaque Full Dose Cement Bone Sterile 6191-1-010 - [id number] Implanted:Qty: 1 on 06/12/2024 by Doni Sharma MD at [facility] Left: Knee [employer] [id number] 04/17/2026 6191-1-010 / / [id number] [employer] Simplex P Radiopaque Full Dose Cement Bone Sterile 6191-1-010 - [id number] Implanted:Qty: 1 on 06/12/2024 by Doni Sharma MD at [facility] Left: Knee [employer] [id number] 04/17/2026 6191-1-010 / / [id number] [employer]/Or tho Nereida Ii [id number] Knee Oval Component Patellar Uhmwpe [id number] - [id number] Implanted:Qty: 1 on 06/12/2024 by Doni Sharma MD at [facility] Left: Knee [employer]/O rtho [id number] 02/11/2034 [id number] / / [id number] [employer]/Or tho Journey Bicruciate Stabilize Knee Left 4 Baseplate Tibial [id number] - [id number] Implanted:Qty: 1 on 06/12/2024 by Doni Sharma MD at [facility] Left: Knee [employer]/O rtho [id number] 02/24/2034 [id number] / / [id number] [employer]/Or tho Journey Ii Cruciate Retain Knee Left 5 Component Femoral Oxinium [id number] - [id number] Implanted:Qty: 1 on 06/12/2024 by Doni Sharma MD at [facility] Left: Knee [employer]/O rtho [id number] 02/23/2034 [id number] / / [id number] [employer]/Or tho Insert Tibial Knee Fixed Lm Articular Journey Ii 11mm Size 3-4 Xlpe [id number] - [id number] Implanted:Qty: 1 on 06/12/2024 by Doni Sharma MD at [facility] Left: Knee [employer]O rtho [id number] 08/12/2033 [id number] / / [id number] Procedures Procedure Name Priority Date/Time Associated Diagnosis Comments US AXILLARY RIGHT Schedule Routine, Read Routine (OP Routine) 10/11/2024 11:11 AM FOUNDATION DRILL OPERATOR HELPER Primary cancer of right female breast (HCC) URINE CULTURE Routine 10/11/2024 10:30 AM FOUNDATION DRILL OPERATOR HELPER URINALYSIS AND REFLEX TO MICROSCOPIC AND CULTURE Routine 10/11/2024 10:30 AM FOUNDATION DRILL OPERATOR HELPER EGFR Routine 10/09/2024 11:52 AM FOUNDATION DRILL OPERATOR HELPER DIFFERENTIAL AUTO Routine 10/09/2024 11: 52 AM FOUNDATION DRILL OPERATOR HELPER COMPREHENSIVE METABOLIC PANEL Routine 10/09/2024 11:52 AM FOUNDATION DRILL OPERATOR HELPER CBC WITH AUTO DIFFERENTIAL Routine 10/09/2024 11:52 AM FOUNDATION DRILL OPERATOR HELPER SURGICAL PATHOLOGY Routine 09/09/2024 10 :21 AM FOUNDATION DRILL OPERATOR HELPER Malignant neoplasm of right female breast, unspecified estrogen receptor status, unspecified site of breast (HCC) BREAST IMAGING US OUTSIDE REFERENCE Routine 08/14/2024 12:05 AM FOUNDATION DRILL OPERATOR HELPER BREAST IMAGING MG DIAGNOSTIC OUTSIDE REFERENCE Routine 08/14/2024 12:00 AM FOUNDATION DRILL OPERATOR HELPER from Last 3 Months Results * (ABNORMAL) US Axillary Breast Right (10/11/2024 11:11 AM FOUNDATION DRILL OPERATOR HELPER) Anatomical Region Laterality Modality Upper Extremities Right Ultrasound 10/11/2024 5:00 PM FOUNDATION DRILL OPERATOR HELPER Impressions 10/11/2024 5:00 PM FOUNDATION DRILL OPERATOR HELPER No evidence to suggest malignancy in the right axilla is seen. Known invasive primary in the right breast. OVERALL FINAL ASSESSMENT: BI-RADS 9-chjioz-ktjuik malignancy. Electronically signed by: Kathryn Valles M.D. Narrative 10/11/2024 5:00 PM FOUNDATION DRILL OPERATOR HELPER PROCEDURE: ULTRASOUND AXILLARY BREAST RIGHT HISTORY: Known invasive primary in the right breast COMPARISON(S): Outside images from August 14, 2024 TECHNIQUE: Orr scale and color Doppler FINDINGS: Sonography through the right axilla demonstrates only normal-appearing lymph nodes with thin cortices. us Claudio Lara MD IMG US PROCEDURES Final Result * Urinalysis reflex to microscopic and culture Urine (10/11/2024 10:30 AM FOUNDATION DRILL OPERATOR HELPER) Color, ur Yellow Yellow Comment:Testing performed by : [address] [address] Clarity, ur Clear Clear MIRELLA Comment:Testing performed by : [address], [place]., [address] Specific gravity, ur 1.012 1.003 - 1.030 MIRELLA Comment:Testing performed by : [address] [address] pH, urine 5.5 MIRELLA Comment: Interpretive Data ? Urine pH is affected by diet, medications, systemic acid-base disturbances, and renal tubular function. ??pH may affect urinary stone formation. ??For example, urine pH below 6.0 may help reduce the tendency for calcium phosphate stones and pH greater than 6.0 may reduce the tendency for uric acid stone formation. Source: [facility] Current Interpretive Data was last revised on 2017 Testing performed by: [address] [address] Protein, ur ql Negative Negative MIRELLA Comment:Testing performed by : [address] [address] Glucose, ur ql Negative Negative MIRELLA Comment:Testing performed by : [address] [address] Ketones, ur Negative Negative MIRELLA Comment:Testing performed by : [address] [address] Bilirubin, ur Negative Negative MIRELLA Comment:Testing performed by : [address] [address] Blood, ur Negative Negative MIRELLA Comment:Testing performed by : [address] [address] Urobilinogen, ur <2.0 <2.0 mg/dL MIRELLA Comment:Testing performed by : [address] [address] Nitrite, ur Negative Negative MIRELLA Comment:Testing performed by : [address] [address] Leukocyte esterase, ur Negative Negative MIRELLA Comment:Testing performed by : [facility], [address] [place] [address]., [address] Urine 10/11/2024 10:3 0 AM FOUNDATION DRILL OPERATOR HELPER 10/11/2024 12:46 PM FOUNDATION DRILL OPERATOR HELPER Claudio Lara MD LAB MICROBIOLOGY - GENERAL ORD ERABLES Final Result Performing Organization Address [facility] de Phone Number [address] Department [place] [address] * Urine culture Urine (10/11/2024 10:30 AM FOUNDATION DRILL OPERATOR HELPER) Report Final Report: Less than 100,000 colonies/mL (clinically insignificant growth based on current clinical standards) Comment:Testing performed by : [facility], [address] [place]., [address] Organism (CLINICALLY INSIGNIFICANT GROWTH MIRELLA Urine 10/11/2024 10:3 0 AM FOUNDATION DRILL OPERATOR HELPER 10/11/2024 4:44 PM FOUNDATION DRILL OPERATOR HELPER Narrative MIRELLA - 10/13/2024 7:30 AM FOUNDATION DRILL OPERATOR HELPER Testing performed by [facility] Microbiology Laboratory ([phone]) Claudio Lara MD LAB MICROBIOLOGY - GENERAL ORD ERABLES Final Result Performing Organization Address [facility] de Phone Number [facility] [address] [facility] Department [place] [address] * (ABNORMAL) eGFR (10/09/2024 11:52 AM FOUNDATION DRILL OPERATOR HELPER) eGFR 12(L) >=60 mL/min/1. 73 m2 Comment: [...] was last reviewed 2021. Testing performed by: [address] [address] Blood 10/09/2024 11:5 2 AM FOUNDATION DRILL OPERATOR HELPER 10/09/2024 12:39 PM FOUNDATION DRILL OPERATOR HELPER us Claudio Lara MD LAB BLOOD ORDERABLES Final Res ult [facility] [address] [facility] Department [place] [address] * (ABNORMAL) Differential, auto (10/09/2024 11:52 AM FOUNDATION DRILL OPERATOR HELPER) Neutrophil abs 12.8(H) 1.5 - 6.5 K/cumm Comment:Testing performed by : [address] [address] Imm gran abs 0.3(H) 0.0 - 0.1 K/cumm MIRELLA Comment:Testing performed by : [address] [address] Lymphocyte abs 3.1 0.8 - 3.3 K/cumm MIRELLA Comment:Testing performed by : [address] [address] Monocyte abs 1.8(H) 0.2 - 0.8 K/cumm MIRELLA Comment:Testing performed by : [address] [place]., [address] Eosinophil abs 0.0 0.0 - 0.5 K/cumm [facility] Comment:Testing performed by : [address] [address] Basophil abs 0.0 0.0 - 0.1 K/cumm MIRELLA Comment:Testing performed by : [address] [address] Neutrophil pct 71.1 % [facility] Comment: Interpretive Data Percent cell count reference ranges are not reported, since discordance with absolute values may lead to misinterpretation of CBC data. Current Interpretive Data was last revised on 2017. Testing performed by: [address] [address] Imm gran pct 1.6 % [facility] Comment: Interpretive Data Percent cell count reference ranges are not reported, since discordance with absolute values may lead to misinterpretation of CBC data. Current Interpretive Data was last revised on 2017. Testing performed by: [address] [address] Lymphocyte pct 17.1 % [facility] Comment: Interpretive Data Percent cell count reference ranges are not reported, since discordance with absolute values may lead to misinterpretation of CBC data. Current Interpretive Data was last revised on 2017. Testing performed by: [address] [address] Monocyte pct 10.0 % [facility] Comment: Interpretive Data Percent cell count reference ranges are not reported, since discordance with absolute values may lead to misinterpretation of CBC data. Current Interpretive Data was last revised on 2017. Testing performed by: [address] [address] Eosinophil pct 0.0 % [facility] Comment: Interpretive Data Percent cell count reference ranges are not reported, since discordance with absolute values may lead to misinterpretation of CBC data. Current Interpretive Data was last revised on 2017. Testing performed by: [address] [address] Basophil pct 0.2 % [facility] Comment: Interpretive Data Percent cell count reference ranges are not reported, since discordance with absolute values may lead to misinterpretation of CBC data. Current Interpretive Data was last revised on 2017. Testing performed by: [address] [address] Blood 10/09/2024 11:5 2 AM FOUNDATION DRILL OPERATOR HELPER 10/09/2024 12:40 PM FOUNDATION DRILL OPERATOR HELPER us Claudio Lara MD LAB BLOOD ORDERABLES Final Res ult [facility] [address] [facility] Department [place] [address] * (ABNORMAL) CBC with auto differential (10/09/2024 11:52 AM FOUNDATION DRILL OPERATOR HELPER) WBC 18.1(H) 3.8 - 9.9 K/cumm Comment:Testing performed by : [address] [address] Hgb 11.9 11.9 - 15.5 g/dL MIRELLA Comment:Testing performed by : [address] [address] Hct 37.8 35.6 - 45.5 % MIRELLA Comment:Testing performed by : [address] [address] Plt 348 150 - 400 K/cumm MIRELLA Comment:Testing performed by : [address] [address] MPV 10.0 9.1 - 12.3 fL MIRELLA Comment:Testing performed by : [address] [address] RBC 4.17 3.90 - 5.20 M/cumm MIRELLA Comment:Testing performed by : [address] [address] MCV 90.6 81.3 - 96.4 fL MIRELLA Comment:Testing performed by : [address] [address] MCH 28.5 27.1 - 33.3 pg MIRELLA Comment:Testing performed by : [address] [address] MCHC 31.5(L) 32.3 - 35.7 g/dL MIRELLA MARK Comment:Testing performed by : [address] [address] RDW CV 15.9(H) 11.1 - 14.9 % MIRELLA MARK Comment:Testing performed by : [address] [address] RDW SD 52.8(H) 35.7 - 48.1 fL MIRELLA MARK Comment:Testing performed by : [address] [address] NRBC abs 0.00 0.00 - 0.01 K/cumm MIRELLA MARK Comment:Testing performed by : [address] [address] Blood 10/09/2024 11:5 2 AM FOUNDATION DRILL OPERATOR HELPER 10/09/2024 12:40 PM FOUNDATION DRILL OPERATOR HELPER Claudio Lara MD LAB BLOOD ORDERABLES Final Res ult MIRELLA [facility] [facility] Department [place] [address] * (ABNORMAL) Comprehensive metabolic panel (10/09/2024 11:52 AM FOUNDATION DRILL OPERATOR HELPER) Sodium 139 135 - 145 mmol/L Comment:Testing performed by : [address] [address] Potassium, pl 4.2 3.3 - 4.9 mmol/L MIRELLA MARK Comment:Testing performed by : [address] [address] Chloride 100 97 - 110 mmol/L MIRELLA MARK Comment:Testing performed by : [address] [address] CO2 25 22 - 32 mmol/L MIRELLA MARK Comment:Testing performed by : [address] [address] Anion gap 14 2 - 15 mmol/L MIRELLA MARK Comment:Testing performed by : [address] [address] BUN 53(H) 6 - 25 mg/dL MIRELLA Comment:Testing performed by : [address] [address] Creatinine 3.94(H) 0.60 - 1.10 mg/dL MIRELLA Comment:Testing performed by : [address] [address] Glucose 81 70 - 199 mg/dL MIRELLA [...] was last revised 2022. Testing performed by: [address] [address] Calcium 9.8 8.5 - 10.3 mg/dL [facility] Comment:Testing performed by : [address] [address] Bilirubin, total 0.3 0.1 - 1.2 mg/dL [facility] Comment:Testing performed by : [address] [address] Protein, pl 7.7 6.5 - 8.5 g/dL MIRELLA Comment:Testing performed by : [address] [address] Albumin 4.0 3.5 - 5.0 g/dL [facility] Comment:Testing performed by : [address] [address] Alk phos 65 40 - 130 Units/L MIRELLA Comment:Testing performed by : [address] [address] ALT 7 7 - 45 Units/L MIRELLA Comment:Testing performed by : [address] [address] AST 21 10 - 45 Units/L MIRELLA MARK Comment:Testing performed by : [facility], [address] [place] [address], [place]., [address] Blood 10/09/2024 11:5 2 AM FOUNDATION DRILL OPERATOR HELPER 10/09/2024 12:39 PM FOUNDATION DRILL OPERATOR HELPER us Claudio Lara MD LAB BLOOD ORDERABLES Final Res ult MIRELLA [address] [facility] Department [place] [address] * Surgical pathology (09/09/2024 10:21 AM FOUNDATION DRILL OPERATOR HELPER) Tissue (Miscellaneous) 09/09/2024 10:21 AM FOUNDATION DRILL OPERATOR HELPER 09/09/2024 10:21 AM FOUNDATION DRILL OPERATOR HELPER Narrative [facility] - 09/27/2024 10:55 AM FOUNDATION DRILL OPERATOR HELPER EPIC results best viewed via link to PDF [facility] Consult Service [facility] [address], [place] [address] Note to Patients: This report [...] SURGICAL PATHOLOGY REPORT * Consult Report * [facility] is providing an additional review of previously collected tissue. FINAL Patient Name: ??CHANELL GARCIAEstrella Address: ??[address] [place] [address], ?[place], [place] ??[address] Gender: ??F : ??1955 (Age: 68) Hospital #: ??[id number] Patient Type: ??WUIO Location: ??UNKNOWN Taken: ??09/09/2024 Received: ??09/09/2024 Accessioned: ??09/09/2024 Reported: ??09/27/2024 Physician(s): Vivek Barrow M.D. [facility] Department of Pathology [address] [place] [address] P: [phone] F: [phone] Histology: [phone] Diagnosis: Consult material received from [place], [place] (OSC: [id number]; 08/14/2024). ?? Right breast mass at 10:00, [...] the following: ER positive (Feliberto score 7/8), NE positive (Feliberto score 7/8), HER2 negative (score 0), and Ki67 < 10%. History: The patient is a 68-year-old woman with history of malignant neoplasm of right breast. Materials Received: Received for review are seven slides labeled [id number], accompanied by a corresponding pathology report. The material originates from [place], [place]. Selected slide(s) may be digitally scanned for our files, and all materials are returned to the referring institution, along with a copy of our final report. Any testing required for diagnostic purposes was performed in the Department of Pathology and Immunology at [facility], [address] [place] [address]. [place] [address] CLIA # [id number] The performance characteristics of the testing cited in this report (if any) were determined by the ??[facility] Department of Pathology and Immunology [facility], as part of an ongoing quality control chemist program and in compliance with federally mandated [...] and the performance characteristics determined by the [facility], [facility] of Pathology and Immunology. ??It has not been cleared or approved by the U.S. Food and Drug Administration. ??Any test designated as LDT was developed and its performance characteristics determined by [facility]. It has not been cleared or approved by the FDA. This test is used for clinical purposes and should not be regarded as investigational or for research. Report images and/or scanned reports, if included, only viewable in PDF version of report. Vivek Barrow MD PhD LAB PATHOLOGY ORDERABLES Final R esult Performing Organization Address [facility] de Phone Number [facility] [address] [address] * Breast Imaging US Outside Reference (08/14/2024 12:05 AM FOUNDATION DRILL OPERATOR HELPER) Narrative RAD_CLARIO_[facility]_MHE - 10/10/2024 9:39 AM FOUNDATION DRILL OPERATOR HELPER This order has been auto-finalized and does not contain a result. us Provider Transcribed Order IMG MAMMO PROCEDURES Final Result Performing Organization Address [facility] de Phone Number [email or web address] * Breast Imaging Diagnostic Outside Reference (08/14/2024 12:00 AM FOUNDATION DRILL OPERATOR HELPER) Narrative RAD_CLARIO_[facility]HB_MHE - 10/10/2024 9:39 AM FOUNDATION DRILL OPERATOR HELPER This order has been auto-finalized and does not contain a result. us Provider Transcribed Order IMG MAMMO PROCEDURES Final Result Performing Organization Address [facility] de Phone Number [email or web address] from Last 3 Months Insurance MEDICARE [facility] [place] [id number] [facility] MEDICARE [facility] MEDICARE Advance Directives For more information, please contact: [phone] * Full Code (Latest Code Status on File) Date Activated Date Inactivated Comments 06/12/2024 3:06 PM 06/13/2024 7:05 PM Care Teams Still Cleaner Tube Relationship Specialty Start Date End Date Pola Navarro MD [address] [facility] [address] [place] [address] PCP - General Family Medicine 04/03/24 Rishi Darby PA [address] [place] [address] [address] [facility] [address] [place] [address] Referring Physician Physician Waiter/[employer]ress [employer]avern 09/02/24 Vivek Barrow MD PhD [address] [place] [address] [address] [place] [address] Medical Oncologist/Local Company Hazmat Driver Medical Oncology 10/02/24 Teresa Lima MD [address] [facility] [address] [place] [address] Referring Physician Nephrology 10/04/24
--- OUTSIDE RECORDS SUMMARY | 2024-10-14 17:14 | XMS_ITS | Referral Summary ---
Author Organization [facility] Address [address] [place] [address] Care Team Providers Care Chainsaw Mechanic Name Role Phone Tre Troy MD Primary Care Provider [phone] Source Comments [facility],non[facility] Affiliates and Associated Physician Practices is amultiple site organization consisting of ambulatory clinics and hospital sitesin [place], [place], [place] and [place]. This disclosure is being madepursuant to the Care Everywhere program and may not contain all information available regarding this patient. Last updated 18.[facility] Allergies Active Allergy Reactions Criticality Noted Date [...] of Treatment Not on file Care Teams Chainsaw Mechanic Relationship Specialty Start Date End Date Tre Troy MD [address] [place] [address] PCP - General 09/04/18
--- OUTSIDE RECORDS SUMMARY | 2024-10-14 17:14 | XMS_ITS | CONTINUITY OF CARE DOCUMENT ---
Author Name nuique calhoun Address Unknown Organization [facility] Address [address] [place] [address] Phone [phone] Care Team Providers Care Sweet Dough Mixer Name Role Phone Ed WHITTINGTON, Paul Unavailable [...] In-person encounter Office Visit Paul Ward MD [facility] Other symptoms involving cardiovascular systemFamily History of Hypertension:Obesity - In-person encounter Office Visit Paul Ward MD [facility] HypertensionChest pain-type to be determinedGERDGoutPalpitationsRenal failure, chronic VITAL SIGNS Date Observation Value Provider blood pressure, diastolic 80 mm[Hg] As fallon Grider blood pressure, systolic 128 mm[Hg] Paulo monique Grider pulse rate 66 /min Donna Grider oxygen saturation, oximetry 96 % Donnamonique Grider respiratory rate E&M 16 /min Donna Grider Body Mass Index (Ratio) 44.33 kg/m2 [facility] 227 [lb_av] Donnagilberto Grider blood pressure, diastolic, right arm 86 m m[Hg] Donnagilberto Grider blood pressure, systolic, right arm 130 m m[Hg] Donnamonique Grider blood pressure, diastolic 90 mm[Hg] [facility], systolic 140 mm[Hg] [facility] Marni pulse rate 88 /min Donnagilberto Grider oxygen saturation, oximetry 96 % Donnamonique Grider respiratory rate E&M 16 /min Dnonagilberto Grider Body Mass Index (Ratio) 43.16 kg/m2 [facility] weight E&M 221 [lb_av] Donnamonique Grider height [...] Payer name Policy type / Coverage type [employer] republic[employer] ID [facility] [id number] 1 TREATMENT PLAN Date Name Performer f/u: H er updated medication list for this problem includes: Bystolic Tabs (Nebivolol hcl tabs) ..... 1 daily Paul Ward MD f/u Paul Kelley f/u Paul Kelley f/u: H er updated medication list for this problem includes: Bystolic Tabs (Nebivolol hcl tabs) ..... 1 daily Tribenzor 20-5-12.5 Mg Tabs (Ujuxilnfem-paslkpjrva-dpuc) ..... 1 daily Orders: E KG ([id number]) Paul Ward MD f/u: H er updated medication list for this problem includes: Dexilant 60 Mg Cpdr (Dexlansoprazole) ..... 1 daily Zegerid Otc Caps (Omeprazole-sodium bicarbonate caps) ..... 1 daily Orders: S TR - Nuclear (60031) R enal Artery Duplex ([id number]) Paul Ward MD f/u: O rders: S TR - Nuclear (65522) R enal Artery Duplex (CPT-32176) Paul Ward MD Date Name Renal Artery Duplex Kidney Ultrasound Mobile Cardiac Tele STR - Nuclear HISTORY OF PROCEDURES Procedure Date Procedure Name Provider Procedure Notes S tatus EKG Paul Ward MD complet ed EKG Paul Ward MD complet ed
--- OUTSIDE RECORDS SUMMARY | 2024-10-14 17:14 | XMS_ITS | Clinical Summary ---
Author Organization [facility] Address [address] [place] [address] Care Team Providers Care Stencil Maker Name Role Phone Tre Troy MD Primary Care Provider [phone] Source Comments [facility] Affiliates and Associated Physician Practices is amultiple site organization consisting of ambulatory clinics and hospital sitesin [place], [place], [place] and [place]. This disclosure is being madepursuant to the Care Everywhere program and may not contain all information available regarding this patient. Last updated 18.[facility] Allergies Active Allergy Reactions Criticality Noted Date [...] age to complete this topic Care Teams Stencil Maker Relationship Specialty Start Date End Date Tre Troy MD [address] [place] [address] PCP - General 09/04/18
--- OUTSIDE RECORDS SUMMARY | 2024-10-14 17:14 | XMS_ITS | Clinical Summary ---
Author Organization [facility] Address [address] [place] [id number] Phone Care Team Providers Care Astrophysics Professor Name Role Phone Pola Navarro MD Primary Care Provider [phone] Allergies Active Allergy Reactions Criticality Noted Date [...] Comments Blood Pressure 136/80 07/25/2022 1:49 PM MENTAL HEALTH ASSOCIATE Pulse - - Temperature 36.3 ??C (97.4 ??F) 07/25/2022 1:49 PM CS T Respiratory Rate 18 07/25/2022 1:49 PM MENTAL HEALTH ASSOCIATE Oxygen Saturation - - Inhaled Oxygen Concentration - - Weight 94.8 kg (209 lb) 07/25/2022 1:49 PM MENTAL HEALTH ASSOCIATE Height 157.5 cm (5' 2 ) 07/25/2022 1:49 PM MENTAL HEALTH ASSOCIATE Body Mass Index 38.23 07/25/2022 1:49 PM MENTAL HEALTH ASSOCIATE Plan of Treatment Health Maintenance Due Date Last Done Comments Pneumococcal PPSV23/PCV13 65 + Years / High and Highest Risk (1 of 4 - PCV) 1961 Influenza Vaccine (#1) 2024 Care Teams Astrophysics Professor Relationship Specialty Start Date End Date Pola Navarro MD [address] [place] [address] PCP - General Internal Medicine 10/16/19
--- OUTSIDE RECORDS SUMMARY | 2024-10-14 17:14 | XMS_ITS | Patient Health Summary ---
Author Organization [facility] Address [address] [place] [address] Care Team Providers Care Electric Motor Assembler And Tester Name Role Phone Tre Troy MD Primary Care Provider [phone] Note from [facility],non-owned Affiliates and Associated Physician Practices is amultiple site organization consisting of ambulatory clinics and hospital sitesin [place], [place], [place] and [place]. This disclosure is being madepursuant to the Care Everywhere program and may not contain all information available regarding this patient. Last updated 18.[facility] Allergies * Shellfish-Derived Products(Anaphylaxis) -High Criticality Medications * Be aware that medications may not be up to date on this document. Alwaysverify current medications with the patient. * nhytudywft-ueGEIERzsf-PLTL (TRIBENZOR) 40-10-25 MG tablet olmesartan 40 mg-amlodipine [...] 43.46 02/26/2019 8:46 AM CDT Care Teams Electric Motor Assembler And Tester Relationship Specialty Start Date End Date Tre Troy MD [address] [place] [address] PCP - General 09/04/18
--- OUTSIDE RECORDS SUMMARY | 2024-10-14 17:14 | XMS_ITS | Clinical Summary ---
Author Organization [address] Address [address] [place] [address] Care Team Providers Care Esl Instructional Assistant Name Role Phone Pola Navarro MD Primary Care Provider Rishi Darby Unavailable [phone] Vivek Barrow MD PhD Unavailable Teresa Lima MD Unavailable [phone] Allergies Active Allergy Reactions Criticality Noted [...] Department Care Team Description 10/11/2024 11:15 AM EQUIPMENT TESTER Lab [facility] Office Building [address] [place] [address] Arrived 10/11/2024 10:00 AM [facility] - 10/11/2024 11:59 PM [facility] Hospital Encounter [facility] Medical Office Bldg 1 Breast [facility] [address] [place] [address] Primary cancer of right female breast (HCC) Discharge Disposition: Discharge to home or self care 10/09/2024 11:45 AM EQUIPMENT TESTER Lab [facility] Office Building [address] [place] [address] 10/04/2024 1:00 PM EQUIPMENT TESTER Office Visit [facility] Oncology [address] [place] [address] [address] [place] [id number] Vivek Barrow MD PhD Malignant neoplasm of upper-outer quadrant of right breast in female, estrogen receptor positive (HCC) (Primary Dx); Malignant neoplasm of right female breast, unspecified estrogen receptor status, unspecified site of breast (HCC) 09/09/2024 Orders Only [facility] [address] [place] [address] Vivek Barrow MD PhD Malignant neoplasm of right female breast, unspecified estrogen receptor status, unspecified site of breast (HCC) 09/06/2024 9:15 AM EQUIPMENT TESTER Office Visit [facility] [address] [place] [address] Linda Ortiz NP Status post total left knee replacement (Primary Dx); Risk for falls; Left knee pain, unspecified chronicity; Orthopedic aftercare; Altered gait 09/06/2024 Orders Only [facility] Oncology [address] [place] [address] Vivek Barrow MD PhD Malignant neoplasm of right female breast, unspecified estrogen receptor status, unspecified site of breast (HCC) (Primary Dx) 09/02/2024 Orders Only [facility] Surgery [address] [facility] Floor 8 [place] [id number] Aft, Senia Tierney MD PhD Abnormal mammogram (Primary Dx) 08/14/2024 12:05 AM EQUIPMENT TESTER - 08/14/2024 11:59 PM EQUIPMENT TESTER Hospital Encounter [facility] Outside Images [address] [place] [address] Discharge Disposition: Discharge to home or self care 08/14/2024 - 08/14/2024 11:59 PM EQUIPMENT TESTER Hospital Encounter [facility] Outside Images [address] [place] [address] Discharge Disposition: Discharge to home or self care from Last 3 Months Surgical History Surgery Date Site/Laterality Comments US GUIDED ASPIRATION ABSCESS HEMATOMA CYST SOFT TISSUE 02/25/2019 N/A HYSTERECTOMY 09/18/1994 - 09/17/1995 CHOLECYSTECTOMY 09/18/1996 - 09/17/1997 BUNIONECTOMY TOTAL KNEE ARTHROPLASTY 06/12/2024 Left Medical History Medical History Date Comments Primary osteoarthritis of right knee Morbid obesity with BMI of 40.0-44.9, adult ([facility] ) BMI 40 Hypertension CKD (chronic kidney disease) stage 3, GFR 30-59 ml/min ([facility]) Secondary hyperparathyroidism of renal origin [...] on file Legal Sex Female 5:04 AM EQUIPMENT TESTER Gender Identity Not on file Sexual Orientation Not on file Obstetrics History Last Filed Vital Signs Vital Sign Reading Time Taken Comments Blood Pressure 158/82 10/04/2024 1:43 PM EQUIPMENT TESTER Pulse 82 10/04/2024 1:43 PM EQUIPMENT TESTER Temperature 36.6 ??C (97.8 ??F) 10/04/2024 1:43 PM CS T Respiratory Rate 20 10/04/2024 1:43 PM EQUIPMENT TESTER Oxygen Saturation 98% 10/04/2024 1:43 PM EQUIPMENT TESTER Inhaled Oxygen Concentration - - Weight 91.6 kg (202 lb) 10/04/2024 1:43 PM EQUIPMENT TESTER n o shoes Height 157.5 cm (5' 2 ) 10/04/2024 1:43 PM EQUIPMENT TESTER n o shoes Body Mass Index 36.95 10/04/2024 1:43 PM EQUIPMENT TESTER Plan of Treatment Health Maintenance Due Date [...] 04/29/2022, 07/08/2021 Medical Devices Implanted Type Area Sas Administrator Device Identifier Shelf Expiration Date Model / Serial / Lot [employer] Simplex P Radiopaque Full Dose Cement Bone Sterile 6191-1-010 - [id number] Implanted:Qty: 1 on 06/12/2024 by Doni Sharma MD at [facility] Left: Knee [employer] [id number] 04/17/2026 6191-1-010 / / [id number] [employer] Simplex P Radiopaque Full Dose Cement Bone Sterile 6191-1-010 - [id number] Implanted:Qty: 1 on 06/12/2024 by Doni Sharma MD at [facility] Left: Knee [employer] [id number] 04/17/2026 6191-1-010 / / [id number] [employer]/Or tho Nereida Ii [id number] Knee Oval Component Patellar Uhmwpe [id number] - [id number] Implanted:Qty: 1 on 06/12/2024 by Doni Sharma MD at [facility] Left: Knee [employer]/O rtho [id number] 02/11/2034 [id number] / / [id number] [employer]/Or tho Journey Bicruciate Stabilize Knee Left 4 Baseplate Tibial [id number] - [id number] Implanted:Qty: 1 on 06/12/2024 by Doni Sharma MD at [facility] Left: Knee [employer]/O rtho [id number] 02/24/2034 [id number] / / [id number] [employer]Or tho Journey Ii Cruciate Retain Knee Left 5 Component Femoral Oxinium [id number] - [id number] Implanted:Qty: 1 on 06/12/2024 by Doni Sharma MD at [facility] Left: Knee [employer]O rtho [id number] 02/23/2034 [id number] / / [id number] [employer]/Or tho Insert Tibial Knee Fixed Lm Articular Journey Ii 11mm Size 3-4 Xlpe [id number] - [id number] Implanted:Qty: 1 on 06/12/2024 by Doni Sharma MD at [facility] Left: Knee [employer]o [id number] 08/12/2033 [id number] / / [id number] Procedures Procedure Name Priority Date/Time Associated Diagnosis Comments US AXILLARY RIGHT Schedule Routine, Read Routine (OP Routine) 10/11/2024 11:11 AM EQUIPMENT TESTER Primary cancer of right female breast (HCC) URINE CULTURE Routine 10/11/2024 10:30 AM EQUIPMENT TESTER URINALYSIS AND REFLEX TO MICROSCOPIC AND CULTURE Routine 10/11/2024 10:30 AM EQUIPMENT TESTER EGFR Routine 10/09/2024 11:52 AM EQUIPMENT TESTER DIFFERENTIAL AUTO Routine 10/09/2024 11: 52 AM EQUIPMENT TESTER COMPREHENSIVE METABOLIC PANEL Routine 10/09/2024 11:52 AM EQUIPMENT TESTER CBC WITH AUTO DIFFERENTIAL Routine 10/09/2024 11:52 AM EQUIPMENT TESTER SURGICAL PATHOLOGY Routine 09/09/2024 10 :21 AM EQUIPMENT TESTER Malignant neoplasm of right female breast, unspecified estrogen receptor status, unspecified site of breast (HCC) BREAST IMAGING US OUTSIDE REFERENCE Routine 08/14/2024 12:05 AM EQUIPMENT TESTER BREAST IMAGING MG DIAGNOSTIC OUTSIDE REFERENCE Routine 08/14/2024 12:00 AM EQUIPMENT TESTER from Last 3 Months Results * (ABNORMAL) US Axillary Breast Right (10/11/2024 11:11 AM EQUIPMENT TESTER) Anatomical Region Laterality Modality Upper Extremities Right Ultrasound 10/11/2024 5:00 PM EQUIPMENT TESTER Impressions 10/11/2024 5:00 PM EQUIPMENT TESTER No evidence to suggest malignancy in the right axilla is seen. Known invasive primary in the right breast. OVERALL FINAL ASSESSMENT: BI-RADS 6-xqvmee-plmlda malignancy. Electronically signed by: Kathryn Valles M.D. Narrative 10/11/2024 5:00 PM EQUIPMENT TESTER PROCEDURE: ULTRASOUND AXILLARY BREAST RIGHT HISTORY: Known invasive primary in the right breast COMPARISON(S): Outside images from August 14, 2024 TECHNIQUE: Orr scale and color Doppler FINDINGS: Sonography through the right axilla demonstrates only normal-appearing lymph nodes with thin cortices. Claudio Lara MD [facility] [place]EDURES Final Result * Urinalysis reflex to microscopic and culture Urine (10/11/2024 10:30 AM EQUIPMENT TESTER) Color, ur Yellow Yellow Comment:Testing performed by : [address] [address] Clarity, ur Clear Clear MIRELLA Comment:Testing performed by : [address] [address] Specific gravity, ur 1.012 1.003 - 1.030 MIRELLA Comment:Testing performed by : [address] [address] pH, urine 5.5 MIRELLA Comment: Interpretive Data ? Urine pH is affected by diet, medications, systemic acid-base disturbances, and renal tubular function. ??pH may affect urinary stone formation. ??For example, urine pH below 6.0 may help reduce the tendency for calcium phosphate stones and pH greater than 6.0 may reduce the tendency for uric acid stone formation. Source: [facility] Current Interpretive Data was last revised on 2017 Testing performed by: [address] [address] Protein, ur ql Negative Negative MIRELLA Comment:Testing performed by : [address], [place]., [address] Glucose, ur ql Negative Negative MIRELLA Comment:Testing performed by : [address], [place]., [address] Ketones, ur Negative Negative MIRELLA Comment:Testing performed by : [address], [place]., [address] Bilirubin, ur Negative Negative MIRELLA Comment:Testing performed by : [address], [place]., [address] Blood, ur Negative Negative MIRELLA Comment:Testing performed by : [address], [place]., [address] Urobilinogen, ur <2.0 <2.0 mg/dL MIRELLA Comment:Testing performed by : [address], [place]., [address] Nitrite, ur Negative Negative MIRELLA Comment:Testing performed by : [address] [address] Leukocyte esterase, ur Negative Negative MIRELLA Comment:Testing performed by : [address], [place]., [address] Urine 10/11/2024 10:3 0 AM EQUIPMENT TESTER 10/11/2024 12:46 PM EQUIPMENT TESTER us Claudio Lara MD LAB MICROBIOLOGY - GENERAL ORD ERABLES Final Result MIRELLA [address] [facility] [place] [address] * Urine culture Urine (10/11/2024 10:30 AM EQUIPMENT TESTER) Report Final Report: Less than 100,000 colonies/mL (clinically insignificant growth based on current clinical standards) Comment:Testing performed by : [facility], [address] [place]., [address] Organism (CLINICALLY INSIGNIFICANT GROWTH [facility] Urine 10/11/2024 10:3 0 AM EQUIPMENT TESTER 10/11/2024 4:44 PM EQUIPMENT TESTER Narrative [facility] - 10/13/2024 7:30 AM EQUIPMENT TESTER Testing performed by [facility] Microbiology Laboratory ([phone]) us Claudio Lara MD LAB MICROBIOLOGY - GENERAL ORD ERABLES Final Result MIRELLA [address] [facility] [place] [address] * (ABNORMAL) eGFR (10/09/2024 11:52 AM EQUIPMENT TESTER) eGFR 12(L) >=60 mL/min/1. 73 m2 Comment: [...] was last reviewed 2021. Testing performed by: [address] [address] Blood 10/09/2024 11:5 2 AM EQUIPMENT TESTER 10/09/2024 12:39 PM EQUIPMENT TESTER us Claudio Lara MD LAB BLOOD ORDERABLES Final Res ult [facility] [address] [facility] Department of Laboratories [place], [place] [id number] * (ABNORMAL) Differential, auto (10/09/2024 11:52 AM EQUIPMENT TESTER) Neutrophil abs 12.8(H) 1.5 - 6.5 K/cumm Comment:Testing performed by : [address] [address] Imm gran abs 0.3(H) 0.0 - 0.1 K/cumm MIRELLA Comment:Testing performed by : [address] [address] Lymphocyte abs 3.1 0.8 - 3.3 K/cumm MIRELLA Comment:Testing performed by : [address] [address] Monocyte abs 1.8(H) 0.2 - 0.8 K/cumm MIRELLA Comment:Testing performed by : [address] [address] Eosinophil abs 0.0 0.0 - 0.5 K/cumm MIRELLA Comment:Testing performed by : [address] [address] Basophil abs 0.0 0.0 - 0.1 K/cumm MIRELLA Comment:Testing performed by : [address] [address] Neutrophil pct 71.1 % MIRELLA Comment: Interpretive Data Percent cell count reference ranges are not reported, since discordance with absolute values may lead to misinterpretation of CBC data. Current Interpretive Data was last revised on 2017. Testing performed by: [address] [address] Imm gran pct 1.6 % [facility] Comment: Interpretive Data Percent cell count reference ranges are not reported, since discordance with absolute values may lead to misinterpretation of CBC data. Current Interpretive Data was last revised on 2017. Testing performed by: [address] [address] Lymphocyte pct 17.1 % [facility] Comment: Interpretive Data Percent cell count reference ranges are not reported, since discordance with absolute values may lead to misinterpretation of CBC data. Current Interpretive Data was last revised on 2017. Testing performed by: [address] [address] Monocyte pct 10.0 % [facility] Comment: Interpretive Data Percent cell count reference ranges are not reported, since discordance with absolute values may lead to misinterpretation of CBC data. Current Interpretive Data was last revised on 2017. Testing performed by: [address] [address] Eosinophil pct 0.0 % [facility] Comment: Interpretive Data Percent cell count reference ranges are not reported, since discordance with absolute values may lead to misinterpretation of CBC data. Current Interpretive Data was last revised on 2017. Testing performed by: [address] [address] Basophil pct 0.2 % [facility] Comment: Interpretive Data Percent cell count reference ranges are not reported, since discordance with absolute values may lead to misinterpretation of CBC data. Current Interpretive Data was last revised on 2017. Testing performed by: [address] [address] Blood 10/09/2024 11:5 2 AM EQUIPMENT TESTER 10/09/2024 12:40 PM EQUIPMENT TESTER us Claudio Lara MD LAB BLOOD ORDERABLES Final Res ult MIRELLA [address] [facility] [place] [address] * (ABNORMAL) CBC with auto differential (10/09/2024 11:52 AM EQUIPMENT TESTER) [facility] WBC 18.1(H) 3.8 - 9.9 K/cumm Comment:Testing performed by : [address] [address] Hgb 11.9 11.9 - 15.5 g/dL MIRELLA Comment:Testing performed by : [address], [address] Hct 37.8 35.6 - 45.5 % MIRELLA Comment:Testing performed by : [address], [address] Plt 348 150 - 400 K/cumm MIRELLA Comment:Testing performed by : [address] [address] MPV 10.0 9.1 - 12.3 fL MIRELLA Comment:Testing performed by : [address], [address] RBC 4.17 3.90 - 5.20 M/cumm MIRELLA Comment:Testing performed by : [address] [address] MCV 90.6 81.3 - 96.4 fL MIRELLA Comment:Testing performed by : [address] [address] MCH 28.5 27.1 - 33.3 pg MIRELLA Comment:Testing performed by : [address] [address] MCHC 31.5(L) 32.3 - 35.7 g/dL MIRELLA Comment:Testing performed by : [address], [address] RDW CV 15.9(H) 11.1 - 14.9 % MIRELLA Comment:Testing performed by : [address] [address] RDW SD 52.8(H) 35.7 - 48.1 fL MIRELLA Comment:Testing performed by : [address] [address] NRBC abs 0.00 0.00 - 0.01 K/cumm MIRELLA Comment:Testing performed by : [address] [address] Blood 10/09/2024 11:5 2 AM EQUIPMENT TESTER 10/09/2024 12:40 PM EQUIPMENT TESTER Claudio Lara MD LAB BLOOD ORDERABLES Final Res ult IMRELLA [address] [facility] [place] [address] * (ABNORMAL) Comprehensive metabolic panel (10/09/2024 11:52 AM EQUIPMENT TESTER) Sodium 139 135 - 145 mmol/L Comment:Testing performed by : [address] [address] Potassium, pl 4.2 3.3 - 4.9 mmol/L MIRELLA Comment:Testing performed by : [address] [address] Chloride 100 97 - 110 mmol/L MIRELLA Comment:Testing performed by : [address] [address] CO2 25 22 - 32 mmol/L MIRELLA Comment:Testing performed by : [address] [address] Anion gap 14 2 - 15 mmol/L MIRELLA Comment:Testing performed by : [address] [address] BUN 53(H) 6 - 25 mg/dL MIRELLA Comment:Testing performed by : [address] [address] Creatinine 3.94(H) 0.60 - 1.10 mg/dL MIRELLA Comment:Testing performed by : [address] [address] Glucose 81 70 - 199 mg/dL MIRELLA [...] was last revised 2022. Testing performed by: [address] [address] Calcium 9.8 8.5 - 10.3 mg/dL MIRELLA Comment:Testing performed by : [address] [address] Bilirubin, total 0.3 0.1 - 1.2 mg/dL MIRELLA Comment:Testing performed by : [address] [address] Protein, pl 7.7 6.5 - 8.5 g/dL MIRELLA Comment:Testing performed by : [address] [address] Albumin 4.0 3.5 - 5.0 g/dL MIRELLA Comment:Testing performed by : [address] [address] Alk phos 65 40 - 130 Units/L MIRELLA Comment:Testing performed by : [address] [address] ALT 7 7 - 45 Units/L MIRELLA Comment:Testing performed by : [address] [address] AST 21 10 - 45 Units/L MIRELLA Comment:Testing performed by : [address] [address] Blood 10/09/2024 11:5 2 AM EQUIPMENT TESTER 10/09/2024 12:39 PM EQUIPMENT TESTER us Claudio Lara MD LAB BLOOD ORDERABLES Final Res ult MIRELLA [address] [facility] [place] [address] * Surgical pathology (09/09/2024 10:21 AM EQUIPMENT TESTER) Tissue (Miscellaneous) 09/09/2024 10:21 AM EQUIPMENT TESTER 09/09/2024 10:21 AM EQUIPMENT TESTER Narrative [facility] - 09/27/2024 10:55 AM EQUIPMENT TESTER EPIC results best viewed via link to PDF [facility] Pathology Consult Service [address], [address], [place] [address] Note to Patients: This report [...] SURGICAL PATHOLOGY REPORT * Consult Report * [facility] is providing an additional review of previously collected tissue. FINAL Patient Name: ??CHANELL GARCIA Address: ??[address] [place] [address], ?[place], [place] ??[address] Gender: ??F : ??1955 (Age: 68) Hospital #: ??[id number] Patient Type: ??[facility] Location: ??UNKNOWN Taken: ??09/09/2024 Received: ??09/09/2024 Accessioned: ??09/09/2024 Reported: ??09/27/2024 Physician(s): Vivek Barrow M.D. [facility] Department of Pathology [address] [address] P: [phone] F: [phone] Histology: [phone] Diagnosis: Consult material received from [place], [place] (OSC: [id number]; 08/14/2024). ?? Right breast mass at 10:00, [...] the following: ER positive (Feliberto score 7/8), ID positive (Feliberto score 7/8), HER2 negative (score 0), and Ki67 < 10%. History: The patient is a 68-year-old woman with history of malignant neoplasm of right breast. Materials Received: Received for review are seven slides labeled [id number], accompanied by a corresponding pathology report. The material originates from [place], [place]. Selected slide(s) may be digitally scanned for our files, and all materials are returned to the referring institution, along with a copy of our final report. Any testing required for diagnostic purposes was performed in the Department of Pathology and Immunology at [facility], [address] [place] [address] CLIA # [id number] The performance characteristics of the testing cited in this report (if any) were determined by the ??[facility] Department of Pathology and Immunology [facility], as part of an ongoing quality control systems manager program and in compliance with federally mandated [...] and the performance characteristics determined by the [facility], [facility] Department of Pathology and Immunology. ??It has not been cleared or approved by the U.S. Food and Drug Administration. ??Any test designated as LDT was developed and its performance characteristics determined by [facility]. It has not been cleared or approved by the FDA. This test is used for clinical purposes and should not be regarded as investigational or for research. Report images and/or scanned reports, if included, only viewable in PDF version of report. Vivek Barrow MD PhD LAB PATHOLOGY ORDERABLES Final R esult Performing Organization Address [facility] Co de Phone Number [facility] [address] [place] [address] * Breast Imaging US Outside Reference (08/14/2024 12:05 AM EQUIPMENT TESTER) Narrative MAYRA_LESTER_DEEDEEE - 10/10/2024 9:39 AM EQUIPMENT TESTER This order has been auto-finalized and does not contain a result. us Provider Transcribed Order IMG MAMMO PROCEDURES Final Result Performing Organization Address [facility] Co de Phone Number [email or web address] * Breast Imaging Diagnostic Outside Reference (08/14/2024 12:00 AM EQUIPMENT TESTER) Narrative MAYRA_LESTER_DEEDEEE - 10/10/2024 9:39 AM EQUIPMENT TESTER This order has been auto-finalized and does not contain a result. us Provider Transcribed Order IMG MAMMO PROCEDURES Final Result Performing Organization Address [facility] Co de Phone Number [email or web address]_MHE from Last 3 Months Insurance [employer] MEDICARE [facility] MED[facility] Advance Directives For more information, please contact: [phone] * Full Code (Latest Code Status on File) Date Activated Date Inactivated Comments 06/12/2024 3:06 PM 06/13/2024 7:05 PM Care Teams Esl Instructional Assistant Relationship Specialty Start Date End Date Pola Navarro MD [address] [place] [address] PCP - General Family Medicine 04/03/24 Rihsi Darby PA [address] [place] [address] Referring Physician Physician Stabilizing Machine Operator 09/02/24 Vivek Barrow MD PhD [address] [facility] [address] [place] [address] Medical Oncologist/Electrical Power Engineer Medical Oncology 10/02/24 Teresa Lima MD [address] [facility] [address] [place] [address] Referring Physician Nephrology 10/04/24
[2024-10-14 18:04] LABS: Basophils Percent Auto 0.1 % (0.2-1.2); Hematocrit 37.3 % (37.0-47.0); Hemoglobin 11.9 g/dL (12.0-15.0); Immature Granulocyte Absolute 0.24 K/mm3 (0.00-0.031); Immature Granulocyte Percent A 1.8 % (0-0.5); Lymphocytes Absolute Auto 2.02 K/mm3 (0.9-3.2); Lymphocytes Percent Auto 15.5 % (18.3-44.2); Mean Corpuscular HGB Conc 31.9 g/dl (32-36); Mean Corpuscular Hemoglobin 29.2 pg (26-34); Mean Corpuscular Volume 91.4 fl (80-100); Mean Platelet Volume 9.7 fl (7.4-10.4); Monocytes Absolute Auto 1.3 K/mm3 (0.1-0.6); Monocytes Percent Auto 9.8 % (2.6-8.5); Neutrophils Absolute Auto 9.5 K/mm3 (1.3-6.7); Neutrophils Percent Auto 72.8 % (45.5-73.1); Platelet Count Result 369 k/mm3 (150-375); Red Blood Count 4.08 M/mm3 (4.2-5.4); Red Cell Distribution Width 15.4 % (11.5-14.5); White Blood Count 13.1 K/mm3 (4.5-10.0)
[2024-10-14 18:17] LABS: Alanine Aminotransferase 13 U/L (6-35); Alkaline Phosphatase 63 U/L (38-126); Anion Gap 10 mmol/L (4-12); Aspartate Amino Transferase 21 U/L (14-36); Bilirubin,Total 0.7 mg/dL (0.2-1.3); Blood Urea Nitrogen 42 mg/dL (7-17); Calcium 9.2 mg/dL (8.4-10.2); Carbon Dioxide 24 mmol/L (22-30); Chloride 100 mmol/L (98-107); Estimated Glomerular Filt Rate 17; Glucose 98 mg/dL (65-110); Sodium 134 mmol/L (137-145); Uric Acid 5.4 mg/dL (2.5-7.5)
== END 2024-10-14 17:12 | disposition home or self-care (01) ==
LOC: ANHLAB 17:12
PROVIDERS: PCP Family Medicine; Visit Provider Family Medicine
DX: M10.9 Gout, unspecified (principal); N18.4 Chronic kidney disease, stage 4 (severe); L02.412 Cutaneous abscess of left axilla
CPT/HCPCS: 36415; 80053; 84550; 85025

== ENCOUNTER 2025-08-18 11:59 | Outpatient (CLI) | payer MEDICARE, SELFPAY ==
--- NOTE | ~2025-08-18 | XR_ITS ---
EXAMINATION: XR wrist LT 2V, 08/18/2025 12:15 INJECTION MOLDING OPERATOR HISTORY: M25.531 - Pain in right wrist, tingling in fingers COMPARISON: No comparisons available. Findings: No acute fracture or malalignment. Moderate degenerative changes of the first metacarpal carpal joint Soft tissues unremarkable. Impression: No acute fracture or malalignment. Reviewed, dictated and finalized at location P. CTION MOLDING OPERATOR Impression: No acute fracture or malalignment.
--- NOTE | ~2025-08-18 | XR_ITS ---
EXAMINATION: XR wrist RT 2V, 08/18/2025 12:15 CAN RECONDITIONER HISTORY: M25.531 - Pain in right wrist x 3months, tingling in fingers COMPARISON: No comparisons available. Findings: No acute fracture or malalignment. Moderate degenerative changes of the first metacarpal carpal joint Soft tissues unremarkable. Impression: No acute fracture or malalignment. Reviewed, dictated and finalized at location P. RECONDITIONER Impression: No acute fracture or malalignment.
--- OUTSIDE RECORDS SUMMARY | 2025-08-18 13:23 | XMS_ITS ---
Author Organization [address] Address [address] [place] [address] Care Team Providers Care Prepress Specialist Name Role Phone Pola Navarro MD Primary Care Provider Rishi Darby Unavailable [phone] Vivek Barrow MD PhD Unavailable Teresa Lima MD Unavailable [phone] Claudio Lara MD Unavailable [phone] Morena Ireland MD Unavailable [phone] Active Problems Problem Noted Date Diagnosed Date Personal history of radiation therapy 02/12/2025 Malignant neoplasm of upper- outer quadrant of right breast in female, estrogen receptor positive 10/02/2024 Cancer Staging:Clinical stage from 10/30/2024:Stage IA(cT1, cN0, cM0, G1, ER+, OK+, HER2-) - Signed by Morena Ireland MD on 10/30/2024 Pathologic stage from 12/16/2024:Stage IA(pT1b, pN0, cM0, G1, ER+, OK+, HER2-) - Signed by Morena Ireland MD on 12/16/2024 Status post total left knee replacement 07/04/20 24 Primary osteoarthritis of right knee 04/10/2024 Current Treatment and Therapy Plans No current plan information found. Past Treatment and Therapy Plans No past plan information found. Radiation Treatments (No Episode) * Course [id number]_202412/31/2024 - 01/08/2025 Treatment Period Energy Fraction Dose Fractions Total Dose Plans Planned RT [facility] 12/31/2024 - 01/08/2025 600 5 / 3,000 Reference Points Delivered RT [facility] 12/31/2024 - 01/08/2025 3,000 Resolved Problems Problem Noted Date Diagnosed Date Resolved Date Primary osteoarthritis of left knee 06/12/2024 07/04/2024 Arthritis of knee, left 04/10/202406/18
--- OUTSIDE RECORDS SUMMARY | 2025-08-18 13:24 | XMS_ITS | Clinical Summary ---
Author Organization [address] Address [address] [place] [address] Care Team Providers Care Shop Lead Name Role Phone Pola Navarro MD Primary Care Provider Rishi Darby Unavailable [phone] Vivek Barrow MD PhD Unavailable Teresa Lima MD Unavailable [phone] Claudio Lara MD Unavailable [phone] Morena Ireland MD Unavailable [phone] Allergies Active Allergy Reactions Criticality Noted Date Comments Shellfish Derived Anaphylaxis High 01/21/2019 Lip swelling related to eating shrimp Medications colchicine (COLCRYS) 0.6 mg tabletIndications: acute gouty arthritis Take 1 tablet (0.6 mg total) by mouth as needed 4 Active fluticasone propionate (FLONASE) 50 mcg/actuation nasal sprayIndications:A llergic Rhinitis 1 spray each nostril daily as needed congestion 4 Active venlafaxine XR (EFFEXOR-XR) 150 mg 24 hr capsuleIndications :major depressive disorder Take 1 capsule (150 mg total) by mouth every morning Active olmesartan-amLODIP in-hcthiazid 20-5-12.5 mg tabletIndications: hypertension Take 1 tablet/capsule by mouth every morning 4 Active nebivoloL (BYSTOLIC) 5 mg tabletIndications: hypertension Take 1 tablet (5 mg total) by mouth every morning Active febuxostat (ULORIC) 40 mg tablet Take 1 tablet (40 mg total) by mouth daily [address] (PROTONIX) 40 mg EC tablet Take 1 tablet (40 mg total) by mouth daily as needed Active letrozole (FEMARA) 2.5 mg tabletIndications: Early Breast Cancer HR Positive and Postmenopausal Take 1 tablet (2.5 mg total) by mouth daily 90 tablet 1 5 025 Active Active Problems Problem Noted Date Diagnosed Date Personal history of radiation therapy 02/12/2025 Malignant neoplasm of upper- outer quadrant of right breast in female, estrogen receptor positive 10/02/2024 Cancer Staging:Clinical stage from 10/30/2024:Stage IA(cT1, cN0, cM0, G1, ER+, TN+, HER2-) - Signed by Morena Ireland MD on 10/30/2024 Pathologic stage from 12/16/2024:Stage IA(pT1b, pN0, cM0, G1, ER+, TN+, HER2-) - Signed by Morena Ireland MD on 12/16/2024 Status post total left knee replacement 07/04/20 Primary osteoarthritis of right knee 04/10/2024 Resolved Problems Problem Noted Date Diagnosed Date Resolved Date Primary osteoarthritis of left knee 06/12/2024 07/04/2024 Arthritis of knee, left 04/10/202406/18 Encounters Date Type Department Care Team Description 06/27/2025 2:30 PM CDT - 06/27/2025 11:59 PM CDT Hospital Encounter [facility] Medical Office Bldg 1 Breast [facility] [address] [place] [address] [id number] Encounter for osteoporosis screening in asymptomatic postmenopausal patient; Use of letrozole (Femara) Discharge Disposition: Discharge to home or self care from Last 3 Months Surgical History Surgery Date Site/Laterality Comments US GUIDED ASPIRATION ABSCESS HEMATOMA CYST SOFT TISSUE 02/25/2019 N/A HYSTERECTOMY 09/18/1994 - 09/17/1995 CHOLECYSTECTOMY 09/18/1996 - 09/17/1997 BUNIONECTOMY Right TOTAL KNEE ARTHROPLASTY 06/12/2024 Left TUBAL LIGATION Medical History Medical History Date Comments Primary osteoarthritis of right knee Morbid obesity with BMI of 40.0-44.9, adult ([facility] ) BMI 40 Hypertension CKD (chronic kidney disease) stage 3, GFR 30-59 ml/min (HCC) Secondary hyperparathyroidism of renal origin Osteoarthritis of knees, bilateral Arthritis Gout Breast cancer, right (HCC) 10/02/2024 Family History Medical History Relation Name Comments Lung cancer Mother Relation Name Status Comments Mother Social History Tobacco Use Types Packs/Day Years Used Date Smoking Tobacco: Never Passive Smoke Exposure: Past Smokeless Tobacco: Never Tobacco Cessation:Counseling Given: Not [...] you have a drink containing alcohol? Never 11/06/2024 Q2: How many drinks containi ng alcohol do you have on a typical day when you are drinking? Patient does not drink Q3: How often do you have si x or more drinks on one occasion? Never 11/06/2024 Personal Safety Answer Date Recorded Have you ever been in or are you currently in a harmful physical or emotional relationship or is someone making you feel afraid or unsafe? 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 Gender Identity Not on file Sexual Orientation Not on file Last Filed Vital Signs Vital Sign Reading Time Taken Comments Blood Pressure 164/78 02/19/2025 8:09 AM CDT Pulse 66 02/19/2025 8:09 AM CDT Temperature 36.7 C (98.1 F) 12/20/2024 4:14 PM CDT Respiratory Rate 20 12/20/2024 4:14 PM CDT Oxygen Saturation 100% 02/19/2025 8:09 AM CDT Inhaled Oxygen Concentration - - Weight 96.6 kg (213 lb) 02/19/2025 8:09 AM CDT Height 157.5 cm (5' 2) 11/14/2024 5:59 AM CUSTOMER RELATIONS REPRESENTATIVE Body Mass Index 38.96 11/14/2024 5:59 AM CUSTOMER RELATIONS REPRESENTATIVE Plan of Treatment Health Maintenance Due Date Last Done Comments Breast Cancer Screening-Mammogram 1955 Colon Cancer Screening-Colonoscopy 1955 Depression Screening 1955 Hepatitis C Screening 1955 DTaP/Tdap/Td Vaccine (1 - Tdap) 1964 Hepatitis B Screening 1971 Well Visit 65+ 2018 Pneumococcal vaccine 65+ (2 of 2 - PPSV23, PCV20, or PCV21) 09/02/2021 07/08/2021 Covid-19 Vaccine (2024-2 6 season) 2025 09/20/2023, 07/12/2022, 07/08/2021, Additional history exists Influenza Vaccine (#1) 2025 09/20/2023, 2019 Fall Risk Assessment 11/14/2025 11/14/2024, 11/05/19 Osteoporosis Screening-Bone Density Scan 06/27/2027 06/27/2025 Zoster Vaccine Completed 04/29/2022, 07/08/2021 Medical Devices Implanted Type Area Marketing Analyst Device Identifier Shelf Expiration Date Model / Serial / Lot [employer] Simplex P Radiopaque Full Dose Cement Bone Sterile 6191-1-010 - [id number] Implanted:Qty: 1 on 06/12/2024 by Doni Sharma Jr., MD at [facility] Left: Knee [employer] [id number] 04/17/2026 6191-1-010 / / [id number] [employer] Simplex P Radiopaque Full Dose Cement Bone Sterile 6191-1-010 - [id number] Implanted:Qty: 1 on 06/12/2024 by Doni Sharma Jr., MD at [facility] Left: Knee [employer] [id number] 04/17/2026 6191-1-010 / / [id number] [employer]/O rtho Nereida Ii [id number] Knee Oval Component Patellar Uhmwpe [id number] - [id number] Implanted:Qty: 1 on 06/12/2024 by Doni Sharma Jr., MD at [facility] Left: Knee [employer]/O rtho [id number] 02/11/2034 [id number] / / [id number] [employer]/O rtho Journey Bicruciate Stabilize Knee Left 4 Baseplate Tibial [id number] - [id number] Implanted:Qty: 1 on 06/12/2024 by Doni Sharma Jr., MD at [facility] Left: Knee [employer]/O rtho [id number] 02/24/2034 [id number] / / [id number] [employer]/O rtho Journey Ii Cruciate Retain Knee Left 5 Component Femoral Oxinium [id number] - [id number] Implanted:Qty: 1 on 06/12/2024 by Doni Sharma Jr., MD at [facility] Left: Knee [employer] r[employer]o [id number] 02/23/2034 [id number] / / [id number] [employer] r[employer]o Insert Tibial Knee Fixed Lm Articular Journey Ii 11mm Size 3-4 Xlpe [id number] - [id number] Implanted:Qty: 1 on 06/12/2024 by Doni Sharma Jr., MD at [facility] Left: Knee [employer] rtho [id number] 08/12/2033 [id number] / / [id number] [employer] Friant 20ga 5cm Reposition J Curve Wire Centimeter Shadi Stabilizer [id number] - [id number] Implanted:Qty: 1 on 11/14/2024 by Florentin Myers MD at [facility] Right: Breast [employer] [id number] 08/23/2029 [id number] / / [id number] Procedures Procedure Name Priority Date/Time Associated Diagnosis Comments DEXA AXIAL SKELETON BONE DENSITY 1 OR MORE SITES Schedule Routine, Read Routine (OP Routine) 06/27/2025 3:33 PM CDT Encounter for osteoporosis screening in asymptomatic postmenopausal patient Use of letrozole (Femara) from Last 3 Months Results * Dexa Axial Skeleton Bone Density 1 or 2 Site (06/27/2025 3:33 PM CDT) Anatomical Region Laterality Modality Body N/A Mammography 06/27/2025 11:3 5 PM CDT Narrative 06/27/2025 11:36 PM CDT EXAM DESCRIPTION: DEXA AXIAL SKELETON BONE DENSITY 1 OR MORE SITES REASON FOR STUDY: 69 y/o year old F with given history of: Osteoporosis screen, Letrozole, osteoporosis screen, Letrozole Marketing Analyst/Model: [employer] (S/N [id number]) Facility LSC value of 0.022 for the AP spine, 0.027 for the femur, and 0.023 for the forearm. CLINICAL INFORMATION: Current height: 62 inches Maximum height: 63 inches Weight: 213 pounds Risk factors: Postmenopausal, cancer COMPARISON: None available FINDINGS: AP LUMBAR SPINE L1-L4: Total BMD is 1.318 g/cm2 T-score is 1.5 LEFT HIP: Total BMD is 0.989 g/cm2 T-score is -0.3 Femoral neck BMD is 0.815 g/cm2 T-score is -1.0 FRAX: FRAX not reported due to T-scores of hip, femoral neck and/or spine being at or above -1.0 (Normal). IMPRESSION: 1. Normal bone mass. REFERENCE: Bone mineral density: T-Score: Normal (T-score above or = -1.0) Low bone mass (T-score between -1.0 and -2.5) replaces the previously used term osteopenia Osteoporosis (T-score = or below -2.5) Z-Score: Within the expected range for age (Z-score above -2.0) Below the expected range for age (Z-score is -2.0 or below) Please see below follow up recommendations. Medical evaluation for secondary causes of low bone mineral density may be appropriate. FRAX is a World Health Organization validated fracture risk assessment tool that calculates a person's 10 year probability of a major osteoporosis related fracture and hip fracture. According to the National Osteoporosis Foundation guidelines, postmenopausal women and men age 50 or older with low bone mass and a 10 year probability of a major osteoporosis related fracture = or greater than 20% or a 10 year probability of a hip fracture = or greater than 3% should be considered for pharmacological treatment for the prevention of osteoporosis. For further information, including treatment recommendations, please refer to the 2019 ISCD Official Positions (http://www.iscd.org) and the NOF's Clinician's Guide to Prevention and Treatment of Osteoporosis (http://www.nof.org/professionals/clinical-guidelines) THIS IS AN ELECTRONICALLY VERIFIED FINAL REPORT 06/27/2025 11:36 PM - Electronically signed by Claudio Aden M.D. MF: VICTORIANO Report ID: [id number] Reading Location: [place] [address] Procedure Note Claudio Aden MD - 06/27/2025 EXAM DESCRIPTION: DEXA AXIAL SKELETON BONE DENSITY 1 OR MORE SITES REASON FOR STUDY: 69 y/o year old F with given history of:Osteoporosis screen, Letrozole, osteoporosis screen, Letrozole Marketing Analyst/Model: [employer] (S/N [id number]) Facility LSC value of 0.022 for the AP spine, 0.027 for the femur, and0.023 for the forearm. CLINICAL INFORMATION: Current height: 62 inches Maximum height: 63 inches Weight: 213 pounds Risk factors: Postmenopausal, cancer COMPARISON: None available FINDINGS: AP LUMBAR SPINE L1-L4: Total BMD is 1.318 g/cm2 T-score is 1.5 LEFT HIP: Total BMD is 0.989 g/cm2 T-score is -0.3 Femoral neck BMD is 0.815 g/cm2 T-score is -1.0 FRAX: FRAX not reported due to T-scores of hip, femoral neck and/or spine beingat or above -1.0 (Normal). IMPRESSION: 1. Normal bone mass. REFERENCE: Bone mineral density: T-Score: Normal (T-score above or = -1.0) Low bone mass (T-score between -1.0 and -2.5) replaces thepreviously used term osteopenia Osteoporosis (T-score = or below -2.5) Z-Score: Within the expected range for age (Z-score above -2.0) Below the expected range for age (Z-score is -2.0 or below) Please see below follow up recommendations. [facility] causes of low bone mineral density may be appropriate. FRAX is a World Health Organization validated fracture risk assessmenttool that calculates a person's 10 year probability of a major osteoporosisrelated fracture and hip fracture. According to the National OsteoporosisFoundation guidelines, postmenopausal women and men age 50 or older with low bonemass and a 10 year probability of a major osteoporosis related fracture = or greater than 20% or a 10 year probability of a hip fracture = or greaterthan 3% should be considered for pharmacological treatment for the preventionof osteoporosis. For further information, including treatment recommendations, please referto the 2019 ISCD Official Positions (http://www.iscd.org) and the NOF's Clinician's Guide to Prevention and Treatment of Osteoporosis (http://www.nof.org/professionals/clinical-guidelines) THIS IS AN ELECTRONICALLY VERIFIED FINAL REPORT 06/27/2025 11:36 PM - Electronically signed by Claudio Aden M.D. MF: VICTORIANO Report ID: [id number] Reading Location: [id number] Vivek Barrow MD PhD IMG DXA PROCEDURES Final Result from Last 3 Months Insurance [employer] MEDICARE [facility] MEDICARE [facility] MEDICARE AET[employer] MEDICARE Advance Directives For more information, please contact: [phone] * Full Code (Latest Code Status on File) Date Activated Date Inactivated Comments 06/12/2024 3:06 PM 06/13/2024 7:05 PM Care Teams Shop Lead Relationship Specialty Start Date End Date Pola Navarro MD [address] [facility] [address] [place] [address] PCP - General Family Medicine 04/03/24 Rishi Darby PA [address] [address] Referring Physician Physician Heel Builder 09/02/24 Vivek Barrow MD PhD [address] [address] Medical Oncologist/University Internship Medical Oncology 10/02/24 Teresa Lima MD [facility] [address] [address] Referring Physician Nephrology 10/04/24 Claudio Lara MD [address] [place] [address] [address] [place] [address] Surgeon General Surgery 10/30/24 Morena Ireland MD [facility] [address] Radiation Oncologist Radiation Oncology 10/30/24
--- OUTSIDE RECORDS SUMMARY | 2025-08-18 13:24 | XMS_ITS | Clinical Summary ---
Author Organization [facility] Luisa darnell Address [address] [place] [address] Phone Care Team Providers Care Pinsetter Mechanic Helper Name Role Phone Pola Navarro MD Primary Care Provider [phone] Allergies Active Allergy Reactions Criticality Noted Date Comments Shellfish Protein-Containing Drug Products Anaphylaxis High Medications betamethasone valerate (VALISONE) 0.1 % cream betamethasone valerate 0.1 % topical cream Active cetirizine (ZyrTEC ALLERGY) 10 MG tablet daily Active fluocinolone (VANOS) 0.01 % cream Synalar 0.01 % topical cream APPLY A THIN LAYER TO THE AFFECTED AREA(S) BY TOPICAL ROUTE 2-4 TIMESDAILY Active Olmesartan-amL ODIPine-HCTZ 40-10-25 MG tablet olmesartan 40 mg-amlodipine 10 mg-hydrochlorothi azide 25 mg tablet Active phentermine 37.5 MG capsule phentermine 37.5 mg capsule Active traMADol (ULTRAM) 50 MG tablet tramadol 50 mg tablet Active venlafaxine XR (EFFEXOR-XR) 150 MG 24 hr capsule venlafaxine ER 150 mg capsule,extended release 24 hr Active Febuxostat (ULORIC) 40 MG tablet Uloric 40 mg tablet Take 1 tablet(s) every day by oral route. 8 Active fluticasone (FLONASE) 50 MCG/ACT nasal spray fluticasone propionate 50 mcg/actuation nasal spray,suspension Active nebivolol (BYSTOLIC) 10 MG tablet Bystolic 10 mg tablet Active predniSONE (DELTASONE) 20 MG tablet prednisone 20 mg tablet Active mupirocin (BACTROBAN) 2 % ointment APPLY TO THE AFFECTED AREA(S) TWICE DAILY 1 Active pantoprazole (PROTONIX) 40 MG EC tablet Take 40 mg by mouth 1 (one) time each day in the morning 1 Active HYDROcodone-ac etaminophen (NORCO) 5-325 MG per tablet Take 1 tablet by mouth every 8 (eight) hours if needed 2 Active cyclobenzaprin e (FLEXERIL) 10 MG tablet TAKE 1 TABLET BY MOUTH AT BEDTIME NEEDED FOR MUSCLE SPASM 2 Active Active Problems Problem Noted Date Diagnosed [...] (04/28/2019): Converted unresolved ICD9, potential mismatch. Immunizations Immunization Administration Dates Next Due Influenza, Injectable, Quadrivalent [...] drink = 0.6 oz pur e alcohol) Comments Unknown Sex and Gender Information Value Date Recorded Sex Assigned at Not on file Legal Sex Female 8:10 AM MST Gender Identity Not on file Sexual Orientation Not on file Last Filed Vital Signs Vital Sign Reading Time Taken Comments Blood Pressure 136/80 07/25/2022 1:49 PM SHIP SURVEYOR Pulse - - Temperature 36.3 C (97.4 F) 07/25/2022 1:49 PM SHIP SURVEYOR Respiratory Rate 18 07/25/2022 1:49 PM SHIP SURVEYOR Oxygen Saturation - - Inhaled Oxygen Concentration - - Weight 94.8 kg (209 lb) 07/25/2022 1:49 PM SHIP SURVEYOR Height 157.5 cm (5' 2) 07/25/2022 1:49 PM SHIP SURVEYOR Body Mass Index 38.23 07/25/2022 1:49 PM SHIP SURVEYOR Plan of Treatment Health Maintenance Due Date Last Done Comments Pneumococcal PPSV23/PCV13 65 + Years / Low and Medium Risk (1 of 2 - PCV) 2003 Influenza Vaccine (#1) 2025 Insurance AETNA MEDICARE ADVANTAGE Care Teams Pinsetter Mechanic Helper Relationship Specialty Start Date End Date Pola Navarro MD [address] [facility] [address] [facility] [address] [place] [address] PCP - General Internal Medicine 10/16/19
--- OUTSIDE RECORDS SUMMARY | 2025-08-18 13:24 | XMS_ITS | Clinical Summary ---
Author Organization [facility] [employer] Address [address] [place] [address] Care Team Providers Care Manager Floor Name Role Phone Tre Troy MD Primary Care Provider [phone] [facility],non[facility] Affiliates and Associated Physician Practices is amultiple site organization consisting of ambulatory clinics and hospital sitesin [place], [place], [place] and [place]. This disclosure is being madepursuant to the Care Everywhere program and may not contain all information available regarding this patient. Last updated 18.[facility] [employer] Allergies Active Allergy Reactions Criticality Noted Date Comments Shellfish-Derived Products Anaphylaxis High Medications * Be aware that medications may not be up to date on this document. Alwaysverify current medications with the patient. 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 Gender Identity Not on file Sexual Orientation Not on file Last Filed Vital Signs Vital Sign Reading Time Taken Comments Blood Pressure 132/80 02/26/2019 8:46 AM CDT Pulse - - Temperature - - Respiratory Rate - - Oxygen Saturation - - Inhaled Oxygen Concentration - - Weight 104.3 kg (230 lb) 02/26/2019 8:46 AM CDT Height 154.9 cm (5' 1) 02/26/2019 8:46 AM CDT Body Mass Index [...] 50+ (1 of 1 - PCV) 2003 Respiratory Syncytial Virus (RSV) Vaccine Pt: or over 60 yrs (1 - Risk 50-74 years 1-dose series) 2003 ZOSTER VACCINE (1 of 2) 2003 SCREENING FOR DIABETES 09/06/2018 DEPRESSION SCREENING 09/18/2024 MEDICARE AWV CALENDAR YEAR 2024 COVID-19 VACCINE (1 - 2024-2 6 season) 2025 INFLUENZA VACCINE (#1) 2025 HEPATITIS B VACCINE Aged Out No longe r eligible based on patient's age to complete this topic HIB VACCINE Aged Out No longer eligi ble based on patient's age to complete this topic HPV VACCINE Aged Out No longer eligi ble based on patient's age to complete this topic MENINGOCOCCAL (Group B) VACC INE SHARED DECISION-MAKING Aged Out No longer eligibl e based on patient's age to complete this topic MENINGOCOCCAL GROUPS A/C/Y/W VACCINE Aged Out No longer eligible b ased on patient's age to complete this topic Insurance [employer] Member Subscriber Plan / Payer (Ef fective 2018-Present) Name:Clare Garciae Member ID:[id number] Relation to Subscriber:Self Name:CHANELL GARCIA Tash Subscriber ID:[id number] Payer ID:1 ([facility]) Type:O Address: [facility] [id number] [place] [id number] AETNA MEDICARE ADV SELF PAY NO INSURANCE Member Subscriber Plan / Payer (Ef fective for All Dates) Name:Sarai Chanell Member ID:Not on file Relation to Subscriber:Not on file Name:SARAICHANELL Subscriber ID:Not on file (Home) Address: [address] [place] [address] Payer ID:Not on file Group ID:Not on file Type:Self Pay Address: [place], [place] Care Teams Manager Floor Relationship Specialty Start Date End Date Tre Troy MD [address] [place] [address] PCP - General 09/04/18
== END 2025-08-18 12:00 | disposition home or self-care (01) ==
PROVIDERS: PCP Family Medicine; Visit Provider Student in an Organized Health Care Education/Training Program
DX: M25.531 Pain in right wrist (principal); M25.532 Pain in left wrist
CPT/HCPCS: 73100